=== PATIENT | male | born 1975 | race Caucasian/White ===

== ENCOUNTER 2016-12-26 15:31 | Inpatient (IN) | payer OTHER ==
[~2016-12-26] VITALS: Ht 185.4 cm; Wt 90.3 kg
[~2016-12-26 15:31] MED LIST: /IPRA3SP INH; ALBUTEROL LIQ INH; BACL10TA2 PO; BACT800T OR; CELE100C PO; CIPR500T4 OR; CLON-412 PO; CLON0.5T PO; GABA600T PO; HYDR25T PO; IBUP80TA PO; LIDO1OIN2 TOP; MAGN250T9 PO; MOBI15TA PO; NAPR250T2 PO; NICO21DI4 TD; PAIN325T OR; ROBA750T4 PO; TRAZ50TA4 PO; VICO5TAB OR; VITATAB11 PO
[2016-12-26 17:05] LABS: BASO % 0.5 % (0.0-1.0); EOS # 0.2 K/mm3 (0.0-0.50); EOS % 2.4 % (0.0-3.0); LARGE UNSTAINED CELL # 0.3 K/mm3 (0.0-0.4); LARGE UNSTAINED CELL % 2.8 % (0.0-4.0); LYMPH # 1.7 K/mm3 (1.5-4.5); LYMPH % 16.6 % (24.0-44.0); MEAN CORPUSCULAR HEMOGLOBIN 31.9 pg (27.0-33.0); MEAN CORPUSCULAR HGB CONC 34.3 g/dl (32.0-36.5); MEAN CORPUSCULAR VOLUME 92.9 fl (80.0-96.0); MONO # 0.6 K/mm3 (0.0-0.8); MONO % 6.1 % (0.0-5.0); NEUTROPHILS # 6.4 K/mm3 (1.8-7.7); NEUTROPHILS % 71.5 % (36.0-66.0); PLATELET COUNT, AUTOMATED 226 k/mm3 (150-450); RED CELL DISTRIBUTION WIDTH 11.9 % (11.5-14.5)
[2016-12-26 17:19] LABS: METHADONE URINE NEGATIVE (NEGATIVE)
[2016-12-26 17:24] LABS: ALBUMIN 3.9 GM/DL (3.2-5.2); ALBUMIN/GLOBULIN RATIO 1.18 (1.00-1.93); ALKALINE PHOSPHATASE 75 U/L (45-117); ALT/SGPT 34 U/L (12-78); ANION GAP 8 MEQ/L (8-16); AST/SGOT 24 U/L (15-37); BILIRUBIN,DIRECT 0.2 MG/DL (0.0-0.2); BILIRUBIN,TOTAL 0.6 MG/DL (0.2-1.0); BLOOD UREA NITROGEN 16 MG/DL (7-18); CALCIUM LEVEL 8.5 MG/DL (8.5-10.1); CARBON DIOXIDE LEVEL 27 MEQ/L (21-32); CHLORIDE LEVEL 105 MEQ/L (98-107); CREATININE FOR GFR 1.17 MG/DL (0.70-1.30); GLOMERULAR FILTRATION RATE > 60.0 (>60); GLUCOSE, FASTING 87 MG/DL (70-105); SODIUM LEVEL 140 MEQ/L (136-145); TOTAL PROTEIN 7.2 GM/DL (6.4-8.2)
--- NOTE | 2016-12-26 18:04 | REP ---
CHEST, ONE VIEW:REASON: Drug overdose, assess for pneumonia. COMPARISON: 04/14/2016 Single frontal view of the chest was obtained. FINDINGS: The technique utilized in obtaining the radiograph has magnified the cardiac silhouette and accentuated the interstitial markings. The superior mediastinal structures are midline. The cardiac silhouette is unremarkable in size, shape, and position. The diaphragmatic surfaces of the lungs are regular, and the costophrenic angles are clear. The pulmonary coleman are clear. The imaged osseous structures are intact. IMPRESSION: There is no acute cardiopulmonary disease. Signed by Yung Wadsworth DO 12/26/2016 06:28 P
--- NOTE | 2016-12-26 18:10 | REP ---
RIGHT HAND: REASON: Pain after trauma. PRIORS: None. FINDINGS: The joint spaces are symmetric and relatively well maintained. There is no evidence of acute fracture or destructive osseous lesion. IMPRESSION: Negative hand. Signed by Yung Wadsworth DO 12/26/2016 06:29 P
--- NOTE | 2016-12-26 18:24 | ECGEPIP ---
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
[2016-12-27] MEDS ORDERED: MAALOX 30 ML SUSP *UDC As Ordered ONE (01:22)
[2016-12-27] MEDS ORDERED: ACETAMINOPHEN TAB 650MG DOSE (2X325MG) PO PRN (04:45)
[2016-12-27] MEDS ORDERED: MAALOX 30 ML SUSP *UDC PO PRN (04:45)
[2016-12-27] MEDS ORDERED: traZODone 50 MG TAB PO PRN (04:45)
[2016-12-27] MEDS ORDERED: MOM 30ML SUSPENSION UDC PO PRN (04:45)
[2016-12-27 04:49] VITALS: BP 146/92
[2016-12-27] MEDS ORDERED: OLANZapine ORAL DISINTEGRATING TAB 5MG PO PRN (05:45)
--- NOTE | 2016-12-27 05:53 | ECGEPIP ---
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
[2016-12-27 06:28] VITALS: BP 146/96
--- NOTE | 2016-12-27 10:33 | HPEPDOC ---
[facility] History & Physical History and Physical DATE OF ADMISSION: Dec 27, 2016 at 02:30 LEGAL STATUS AT ADMISSION: 9.39 CHIEF COMPLAINT: "I'm not going into withdrawal. I'm not going to answer your stupid questions". HISTORY OF THE PRESENT ILLNESS: Patient is a 41-year-old male, who was admitted via the ED last night. He and his girlfriend arrive and both were under the influence of substances. Pt admits to using 1 bag of heroine every couple of days. On other days he uses methamphetamine. He administers drugs IV. Last night he apparently deliberately overdosed with his heroine injection so he could get mental health services. He states he has only used about 6 bags since his release from [facility] at the end of November. He denies he will have withdrawal symptoms as he has not used drugs enough to go into withdrawal. He insists he does not want any medications we may offer him. He states "I don't need drugs". When asked if he wanted to get clean he replied in the affirmative. Toxicology + for cocaine and opiates. Neutrophils high and monophils high, lymphocytes low. Xrays done in ER for chest and right hand both negative findings. PSYCHIATRIC REVIEW OF SYSTEMS: Affective: nasty, yelling, uncooperative Anxiety: high Trauma: not addressed Psychosis: he states the FBI and/or the Drug Task Force is behind his house and he and others can hear and see them back there breaking branches. Personally: hostile PAST PSYCHIATRIC HISTORY: Prior Psychiatric Disorder: prior admissio [facility] 04/03/04. Received counseling for alcoholism. Has received out patient counseling for alcohol abuse per his chart. Outpatient Treatment: none Suicidal/Self injurious: per ED report, pts denies presence of suicidal thoughts at this time. Psychotropic Medication History:denies. ALLERGIES: Please see below. FAMILY PSYCHIATRIC HISTORY: will not answer the question SOCIAL HISTORY: Early Relations/development: . Sibling order: . Paternal relationships: . Education: . Occupational: . Legal: . Martial: not Economic: . Supports: . Abuse/trauma: . SUBSTANCE ABUSE HISTORY: actively using methamphetamine and heroine. Mobile meth unit found in his vehicle. PAST MEDICAL/SURGICAL HISTORY: 1. h/o Hepatitis C. 2. T & A in childhood 3. h/o migraines. VITAL SIGNS: Temperature 97.7, pulse 97, respiratory rate 20, blood pressure 146 /96. MENTAL STATUS EXAMINATION: General appearance: Patient is a 41-year old male, who is completely uncooperative to an interview. Dressed in hospital pj bottoms and a T-shirt, lying in bed, shaking legs. Speech: loud, yelling, spontaneous. Thought processes: irrational Thought content: paranoid, suspicious. Abstract reasoning and computation: not addressed. Description of associations: not assessed. Description of abnormal or psychotic thoughts: as above : Government officials are breaking branches near his home. He told ED staff that they want him to come work for them. He would neither confirm or deny these things with va underwriter. Judgment: poor Insight: poor Orientation: not assessed at this time. Recent and remote memory: appears intact Attention span and concentration: poor Fund of knowledge: unable to determine Mood: angry Affect: hostile, congruent. DIAGNOSES: 1. Substance induce mood disorder with paranoia, delusions and suicidal ideation 2. Sedative, hypnotic and opiate dependence. 3. methamphetamine dependence. 4. Antisocial personality ASSESSMENT: Pt is not cooperative to attempts to make him comfortable. Pt is denying the need for inpatient treatment. He refuses to discuss other available options. He began attacking va underwriter immediately and criticizing questions that were asked. Refused to answer questions so interview was stopped. Pt was informed that his refusal to participate in the treatment planning process will delay his discharge to which he replied, "I don't care". PROBLEM LIST: 1. substance abuse 2. suicidal 3. altered mental status INITIAL TREATMENT PLAN: 1. Patient was admitted on a 9.39 2. Complete history was obtained. 3. With patients permission, family will be contacted and database will be expanded. 4. Patients medication regimen will be reviewed and changed accordingly. 5. Patient will be provided with protected environment. 6. Patient will be treated with individual, group, and milieu therapies. 7. Patient will receive supportive psych-education. 8. Discharge planning will commence immediately. 9. Outpatient follow-up treatment will be strongly recommended. 10. The initial treatment plan will focus initially on: * Depression. * Risk for suicide. * Substance abuse. ESTIMATED LENGTH OF STAY: 5-7 DAYS. TIME SPENT COUNSELING AND COORDINATING INITIAL CARE: minutes. Laboratory Data 24H Labs Laboratory Tests 2 12/26/16 16:48: White Blood Count 9.0, Red Blood Count 5.23, Hemoglobin 16.7, Hematocrit 48.6, Mean Corpuscular Volume 92.9, Mean Corpuscular Hemoglobin 31.9, Mean Corpuscular Hemoglobin Concent 34.3, Red Cell Distribution Width 11.9, Platelet Count 226, Neutrophils (%) (Auto) 71.5H, Lymphocytes (%) (Auto) 16.6L, Monocytes (%) (Auto) 6.1H, Eosinophils (%) (Auto) 2.4, Basophils (%) (Auto) 0.5 , Neutrophils # (Auto) 6.4, Lymphocytes # (Auto) 1.7, Monocytes # (Auto) 0.6, Eosinophils # (Auto) 0.2, Basophils # (Auto) 0.0, Large Unclassified Cells % 2.8 , Large Unclassified Cells # 0.3, Anion Gap 8, Glomerular Filtration Rate > 60.0 , Calcium Level 8.5, Aspartate Amino Transf (AST/SGOT) 24, Alanine Aminotransferase (ALT/SGPT) 34, Alkaline Phosphatase 75, Total Bilirubin 0.6, Direct Bilirubin 0.2, Total Creatine Kinase 351H, Creatine Kinase MB 2.9, Creatine Kinase MB Relative Index 0.82, Troponin I < 0.02, Total Protein 7.2, Albumin 3.9, Albumin/Globulin Ratio 1.18, Thyroid Stimulating Hormone (TSH) 1.970, Salicylates Level < 1.7L, Urine Amphetamines Screen POSITIVEH, Urine Benzodiazepines Screen NEGATIVE, Urine Opiates Screen NEGATIVE, Urine Methadone Screen NEGATIVE, Acetaminophen Level < 2.0L, Urine Barbiturates Screen NEGATIVE , Urine Phencyclidine Screen NEGATIVE, Urine Cocaine Metabolite Screen POSITIVEH , Urine Cannabinoids Screen NEGATIVE, Ethyl Alcohol Level < 0.003 CBC/BMP Laboratory Tests 12/26/16 16:48 Red Blood Count 5.23, Mean Corpuscular Volume 92.9, Mean Corpuscular Hemoglobin 31.9, Mean Corpuscular Hemoglobin Concent 34.3, Red Cell Distribution Width 11.9 , Neutrophils (%) (Auto) 71.5 H, Lymphocytes (%) (Auto) 16.6 L, Monocytes (%) ( Auto) 6.1 H, Eosinophils (%) (Auto) 2.4, Basophils (%) (Auto) 0.5, Neutrophils # (Auto) 6.4, Lymphocytes # (Auto) 1.7, Monocytes # (Auto) 0.6, Eosinophils # ( Auto) 0.2, Basophils # (Auto) 0.0 Medications No Active Prescriptions or Reported Meds Allergies Coded Allergies: No Known Drug Allergy (Verified Allergy, Unknown, 12/03/12) Julee Ceja Dec 27, 2016 10:33
--- NOTE | 2016-12-27 12:43 | HPEPDOC ---
Medical History and Physical Date of Admission Dec 27, 2016 at 02:30 History and Physical PCP: None ATTENDING: Dr. Sly Martino HPI: 41 yo M admitted to [facility] for unspecified depressive disorder, being medically examined today. Patient was found in [employer] parking lot with apparent overdose. 4 bags of heroin used IV, cocaine. Narcan was administered. Patient became responsive. He was brought to [facility] emergency department where he was medically evaluated and felt stable for admission to [facility]. Patient declines to participate with history or physical examination today. History is taken from the chart. PMHx: Tobacco use Substance use Chronic hepatitis C PSHX: None SOCHX: Resides in: [facility] Marital Status: Single Tobacco use: Smoker ETOH: none Illicit Drugs: Heroin, methamphetamine, IV Drug Use: Heroin Tattoos done unprofessionally: Unknown ROS: Patient declines to participate with history. PE: Patient declines to participate with physical examination. EK12/26/16 SINUS RHYTHM BENIGN EARLY REPOLARIZATION PROBABLE INFERIOR MYOCARDIAL INFARCTION, PROBABLY OLD SIMILAR TO PRIOR ON SAME DATE. X-ray right hand 12/26/16 Negative hand. Chest x-ray 12/26/16 There is no acute cardiopulmonary disease. A&P: 41 yo M admitted to [facility] for unspecified depressive disorder 1. Psych. Plan per Psychiatry. EKG on file. 2. Nicotine dependence. Patch available. 3. Borderline EKG. No cardiac signs or symptoms appreciated on exam, follow with PCP. 4. Follow up. No Primary Care Provider. Will attempt to establish PCP on discharge. 5. History of right hand trauma. X-ray negative. 6. Elevated CK. Recheck. 7. Substance use. Per psychiatry. 8. Chronic hepatitis C. As per labs 02/15. Seen by Dr. Downey 05/18. No treatment at that time. Follow-up with infectious disease following discharge. 9. History of IVDU. HIV negative per chart 2010. Can offer rescreening. 10. As noted above patient declined to participate with exam. Vital Signs Vital Signs Date Time Temp Pulse Resp B/P (MAP) Pulse Ox O2 Delivery O2 Flow Rate FiO2 12/27/16 06:28 97.7 97 20 146/96 (113) 12/26/16 21:19 96 Room Air Laboratory Data Labs 24H Laboratory Tests 2 12/26/16 16:48: White Blood Count 9.0, Red Blood Count 5.23, Hemoglobin 16.7, Hematocrit 48.6, Mean Corpuscular Volume 92.9, Mean Corpuscular Hemoglobin 31.9, Mean Corpuscular Hemoglobin Concent 34.3, Red Cell Distribution Width 11.9, Platelet Count 226, Neutrophils (%) (Auto) 71.5H, Lymphocytes (%) (Auto) 16.6L, Monocytes (%) (Auto) 6.1H, Eosinophils (%) (Auto) 2.4, Basophils (%) (Auto) 0.5 , Neutrophils # (Auto) 6.4, Lymphocytes # (Auto) 1.7, Monocytes # (Auto) 0.6, Eosinophils # (Auto) 0.2, Basophils # (Auto) 0.0, Large Unclassified Cells % 2.8 , Large Unclassified Cells # 0.3, Anion Gap 8, Glomerular Filtration Rate > 60.0 , Calcium Level 8.5, Aspartate Amino Transf (AST/SGOT) 24, Alanine Aminotransferase (ALT/SGPT) 34, Alkaline Phosphatase 75, Total Bilirubin 0.6, Direct Bilirubin 0.2, Total Creatine Kinase 351H, Creatine Kinase MB 2.9, Creatine Kinase MB Relative Index 0.82, Troponin I < 0.02, Total Protein 7.2, Albumin 3.9, Albumin/Globulin Ratio 1.18, Thyroid Stimulating Hormone (TSH) 1.970, Salicylates Level < 1.7L, Urine Amphetamines Screen POSITIVEH, Urine Benzodiazepines Screen NEGATIVE, Urine Opiates Screen NEGATIVE, Urine Methadone Screen NEGATIVE, Acetaminophen Level < 2.0L, Urine Barbiturates Screen NEGATIVE , Urine Phencyclidine Screen NEGATIVE, Urine Cocaine Metabolite Screen POSITIVEH , Urine Cannabinoids Screen NEGATIVE, Ethyl Alcohol Level < 0.003 CBC/BMP Laboratory Tests 12/26/16 16:48 Red Blood Count 5.23, Mean Corpuscular Volume 92.9, Mean Corpuscular Hemoglobin 31.9, Mean Corpuscular Hemoglobin Concent 34.3, Red Cell Distribution Width 11.9 , Neutrophils (%) (Auto) 71.5 H, Lymphocytes (%) (Auto) 16.6 L, Monocytes (%) ( Auto) 6.1 H, Eosinophils (%) (Auto) 2.4, Basophils (%) (Auto) 0.5, Neutrophils # (Auto) 6.4, Lymphocytes # (Auto) 1.7, Monocytes # (Auto) 0.6, Eosinophils # ( Auto) 0.2, Basophils # (Auto) 0.0 Home Medications No Active Prescriptions or Reported Meds Allergies Coded Allergies: No Known Drug Allergy (Verified Allergy, Unknown, 12/03/12) Mere Aleman Dec 27, 2016 12:43
[2016-12-27 18:00] VITALS: BP 136/83
[2016-12-28 06:23] VITALS: BP 147/83
[2016-12-28 06:33] LABS: MEAN CORPUSCULAR HEMOGLOBIN 31.7 pg (27.0-33.0); MEAN CORPUSCULAR HGB CONC 33.9 g/dl (32.0-36.5); MEAN CORPUSCULAR VOLUME 93.4 fl (80.0-96.0); RED CELL DISTRIBUTION WIDTH 11.9 % (11.5-14.5); WHITE BLOOD COUNT 11.1 K/mm3 (4.0-10.0)
[2016-12-28 06:54] LABS: ALBUMIN 3.2 GM/DL (3.2-5.2); ALBUMIN/GLOBULIN RATIO 1.07 (1.00-1.93); ALKALINE PHOSPHATASE 75 U/L (45-117); ALT/SGPT 33 U/L (12-78); ANION GAP 8 MEQ/L (8-16); AST/SGOT 19 U/L (15-37); BILIRUBIN,TOTAL 0.4 MG/DL (0.2-1.0); BLOOD UREA NITROGEN 10 MG/DL (7-18); CARBON DIOXIDE LEVEL 25 MEQ/L (21-32); CHLORIDE LEVEL 105 MEQ/L (98-107); CREATININE FOR GFR 0.91 MG/DL (0.70-1.30); GLOMERULAR FILTRATION RATE > 60.0 (>60); GLUCOSE, FASTING 97 MG/DL (70-105); POTASSIUM SERUM 4.4 MEQ/L (3.5-5.1); SODIUM LEVEL 138 MEQ/L (136-145); TOTAL PROTEIN 6.2 GM/DL (6.4-8.2)
--- NOTE | 2016-12-28 11:52 | DS.PDOC ---
[facility] Discharge Summary Discharge Summary DATE OF ADMISSION: Dec 27, 2016 at 02:30 DATE OF DISCHARGE: Dec 28, 2016 DISCHARGE DIAGNOSES: 1. Opiate overdose 2. opiate induced psychosis REASON FOR ADMISSION: pt was brought to ED after Narcan used to reverse a deliberate overdose on the part of Mr. Cadena. CONSULTANTS INVOLVED: NA TREATMENT AND PROGRESS ON THE UNIT : Mr. Cadena was extremely irritable and non cooperative with all personnel after his admission to [facility]. He would not provide any information about himself. Refused to accept any offers of treatment or assistance. Denied the need for treatment and all medications. Denied he would experience withdrawal as he does not use opiates routinely. Pt was very hostile towards staff. He did not engage in any unit activities or interact with any peers. He stated he did eat meals. HOSPITAL COURSE: pt cooperative with labs on 12/28. He requested discharge on 12.28 and denied thoughts of suicide or homicide. He declined offer for referral to substance abuse inpatient or outpatient treatment. He declined a referral for Outpatient Mental Health treatment. He did accept the offer of involving [facility] in looking for housing for him. He is aware he can present to [facility] or [facility] Outpatient clinics anytime as a walk-in. He showered prior to leaving the unit. DISCHARGE ASSESSMENT: Pt. states he deliberately overdosed as a way to get even with and hurt his Girlfriend with whom he had been fighting. He states he doesn' t like drugs but she does and he will use with her periodically. Pt states he intends to reside at his mother's residence. He called to her to make sure this was okay and she agreed. Girlfriend was going to pick him up when she got done at court. MENTAL STATUS EXAMINATION ON DISCHARGE: Patient is a 41-year old male, who is interviewed in his room, no roommate present. Has just showered and is waiting for his clothes. Speech is fluent, spontaneous. Language skills are good. Thought processes including: no delusions voiced. Goal directed. Thought content: discharge planning Abstract reasoning, and computation: poor Description of associations: good Description of abnormal or psychotic thoughts: no mention of FBI or Drug task force today. Denies suicidal or homicidal thoughts. Judgment: poor Insight: limited Orientation to person, place, time and situation. Recent and remote memory: intact Attention span and concentration: limited Fund of knowledge:full. Mood: angry. Affect: irritable. MEDICATIONS ON DISCHARGE: NONE PLAN/FOLLOWUP ARRANGEMENTS: Pt is aware he can present as an outpatient to [facility] for substance abuse treatment at any time. Pt will be contacted about a referral to [facility] after he leaves the hospital. The amount of time spent in the coordination of care for this patient was approximately 30 minutes. Vital Signs/I&Os Vital Signs Date Time Temp Pulse Resp B/P (MAP) Pulse Ox O2 Delivery O2 Flow Rate FiO2 12/28/16 06:23 100.8 72 20 147/83 (104) 12/27/16 18:00 Room Air 12/26/16 21:19 96 Laboratory Data Labs 24H Laboratory Tests 2 12/28/16 06:17: Anion Gap 8, Glomerular Filtration Rate > 60.0, Blood Urea Nitrogen 10, Creatinine 0.91, Sodium Level 138, Potassium Level 4.4, Chloride Level 105, Carbon Dioxide Level 25, Calcium Level 8.0L, Aspartate Amino Transf (AST/SGOT) 19, Alanine Aminotransferase (ALT/SGPT) 33, Total Creatine Kinase 102, Alkaline Phosphatase 75, Total Bilirubin 0.4, Total Protein 6.2L, Albumin 3.2, Albumin/ Globulin Ratio 1.07 CBC/BMP Laboratory Tests 12/28/16 06:17 Red Blood Count 5.06, Mean Corpuscular Volume 93.4, Mean Corpuscular Hemoglobin 31.7, Mean Corpuscular Hemoglobin Concent 33.9, Red Cell Distribution Width 11.9 , Calcium Level 8.0 L, Aspartate Amino Transf (AST/SGOT) 19, Alanine Aminotransferase (ALT/SGPT) 33, Total Creatine Kinase 102, Alkaline Phosphatase 75, Total Bilirubin 0.4, Total Protein 6.2 L, Albumin 3.2 Medications No Active Prescriptions or Reported Meds Allergies Coded Allergies: No Known Drug Allergy (Verified Allergy, Unknown, 12/03/12) Julee Ceja Dec 28, 2016 11:52
== END 2016-12-28 11:50 | disposition home or self-care (01) | DRG 773 ==
LOC: EDBD 15:31 → M ED 17:26 → M PSY 12-27 02:30 → M ED INP 12-27 02:30 → UNDOADMIN 12-27 03:56 → M ED INP 12-27 03:56
PROVIDERS: ADMIT Psychiatry & Neurology Psychiatry; ATTEND Psychiatry & Neurology Child & Adolescent Psychiatry
DX: F11.250 Opioid dependence with opioid-induced psychotic disorder with delusions (principal); F15.20 Other stimulant dependence, uncomplicated; F60.2 Antisocial personality disorder; T40.1X2A Poisoning by heroin, intentional self-harm, initial encounter; T40.5X2A Poisoning by cocaine, intentional self-harm, initial encounter; B18.2 Chronic viral hepatitis C; F17.210 Nicotine dependence, cigarettes, uncomplicated

== ENCOUNTER → 2018-11-27 | Outpatient (CLI) | payer MEDICAID ==
[~2018-11-27] MED LIST changes: -CLON0.5T PO; +CLON0.5T8 PO; -GABA600T PO; +GABA600T4 PO; +HYDR-3363 PO; -HYDR25T PO; -NAPR250T2 PO; +NAPR250T4 PO; +TRAZ-160 PO; -TRAZ50TA4 PO
== END ==
LOC: M OUTALCOH 13:30
PROVIDERS: ATTEND Psychiatry & Neurology Psychiatry
DX: F11.250 Opioid dependence with opioid-induced psychotic disorder with delusions (principal)

== ENCOUNTER 2018-12-09 13:13 | Inpatient (IN) | payer MEDICAID, OTHER ==
[~2018-12-09] VITALS: Ht 185.4 cm; Wt 93.8 kg
[~2018-12-09 13:13] MED LIST changes: -/IPRA3SP INH; +ATRO1SOL13 INH
[2018-12-09] MEDS ORDERED: ONDANSETRON 4MG/2ML VIAL (J2405) IV ONE ×2 (13:30→16:15)
[2018-12-09] MEDS ORDERED: NS 1,000 ML IV ONE (13:30)
[2018-12-09 13:43] LABS: VENOUS HCO3 21.7 MEQ/L (23.0-27.0); VENOUS O2 SATURATION 32.5 % (60.0-80.0); VENOUS PARTIAL PRESSURE CO2 89.5 mmHg (38.0-50.0); VENOUS PARTIAL PRESSURE O2 23.6 mmHg (30.0-50.0); VENOUS PH 7.002 UNITS (7.330-7.430); VENOUS TOTAL CO2 24.4 MEQ/L (24.0-28.0)
[2018-12-09 13:46] LABS: HEMATOCRIT 49.4 % (42.0-52.0); HEMOGLOBIN 15.7 g/dl (13.5-17.5); MEAN CORPUSCULAR HEMOGLOBIN 31.5 pg (27.0-33.0); MEAN CORPUSCULAR HGB CONC 31.8 g/dl (32.0-36.5); PLATELET COUNT, AUTOMATED 246 10^3/uL (150-450); RED BLOOD COUNT 4.99 10^6/uL (4.30-6.10); WHITE BLOOD COUNT 17.3 10^3/uL (4.0-10.0)
[2018-12-09 14:30] LABS: ACETAMINOPHEN LEVEL < 2.0 UG/ML (10.0-30.0); ALBUMIN 4.4 GM/DL (3.2-5.2); ALT/SGPT 27 U/L (12-78); BILIRUBIN,DIRECT 0.2 MG/DL (0.0-0.2); BILIRUBIN,TOTAL 0.4 MG/DL (0.2-1.0); BLOOD UREA NITROGEN 17 MG/DL (7-18); CARBON DIOXIDE LEVEL 24 MEQ/L (21-32); CHLORIDE LEVEL 102 MEQ/L (98-107); CPK CREATINE PHOSPHOKINASE 606 U/L (39-308); CREATININE FOR GFR 1.32 MG/DL (0.70-1.30); ETHYL ALCOHOL (ETHANOL) < 0.003 % (0.000-0.010); GLOMERULAR FILTRATION RATE > 60.0 (>60); GLUCOSE, FASTING 112 MG/DL (70-100); POTASSIUM SERUM 6.3 MEQ/L (3.5-5.1); SALICYLATE LEVEL 2.6 MG/DL (5.0-30.0); SODIUM LEVEL 138 MEQ/L (136-145); TOTAL PROTEIN 7.9 GM/DL (6.4-8.2)
[2018-12-09] MEDS ORDERED: CALCIUM GLUCONATE 1,000 MG in D5W MINI-BAG PLUS 100 ML IV ONE (14:30)
[2018-12-09] MEDS ORDERED: NS 1,800 ML in APPROPRIATE DILUENT 1 EA IV ONE (14:30)
[2018-12-09] MEDS ORDERED: SODIUM BICARBONATE 8.4% INJ 50 ML SYRINGE IV STA (14:54)
[2018-12-09 15:58] LABS: VENOUS BASE EXCESS -8.2 (-2.0-2.0); VENOUS HCO3 20.3 MEQ/L (23.0-27.0); VENOUS O2 SATURATION 29.6 % (60.0-80.0); VENOUS PARTIAL PRESSURE CO2 53.2 mmHg (38.0-50.0); VENOUS PARTIAL PRESSURE O2 19.2 mmHg (30.0-50.0); VENOUS PH 7.199 UNITS (7.330-7.430); VENOUS STANDARD HCO3 16.5 MEQ/L; VENOUS TOTAL CO2 21.9 MEQ/L (24.0-28.0)
[2018-12-09 16:23] LABS: AMPHETAMINES LEVEL URINE NEGATIVE (NEGATIVE); BARBITURATES URINE NEGATIVE (NEGATIVE); BENZODIAZEPINES URINE NEGATIVE (NEGATIVE); CANNABINOIDS URINE NEGATIVE (NEGATIVE); COCAINE METABOLITE URINE NEGATIVE (NEGATIVE); METHADONE URINE NEGATIVE (NEGATIVE); OPIATES URINE POSITIVE (NEGATIVE); PHENCYCLIDINE URINE NEGATIVE (NEGATIVE)
[2018-12-09 16:31] LABS: BLOOD UREA NITROGEN 17 MG/DL (7-18); CARBON DIOXIDE LEVEL 22 MEQ/L (21-32); CHLORIDE LEVEL 89 MEQ/L (98-107); CREATININE FOR GFR 1.33 MG/DL (0.70-1.30); GLOMERULAR FILTRATION RATE > 60.0 (>60); GLUCOSE, FASTING 537 MG/DL (70-100); POTASSIUM SERUM 6.2 MEQ/L (3.5-5.1); SODIUM LEVEL 120 MEQ/L (136-145)
[2018-12-09] MEDS ORDERED: ISOVUE-370 76% 100ML VIAL (Q9967) As Ordered ONE (16:39)
[2018-12-09] MEDS ORDERED: NALOXONE INJ 2 MG/2 ML SYRINGE (J2310) As Ordered ONE (16:44)
[2018-12-09] MEDS ORDERED: NALOXONE INJ 0.4 MG/1 ML VIAL (J2310) IV STA ×2 (16:48→16:49)
[2018-12-09] MEDS ORDERED: HumuLIN R (REGULAR) INSULIN (NovoLIN R) **100U/ML** PER UNIT SC STA (17:56)
[2018-12-09] MEDS ORDERED: DEXTROSE 50% 50 ML SYRINGE IV STA (17:56)
[2018-12-09 17:57] LABS: ALBUMIN 3.5 GM/DL (3.2-5.2); ALT/SGPT 61 U/L (12-78); BILIRUBIN,DIRECT 0.4 MG/DL (0.0-0.2); BILIRUBIN,TOTAL 0.7 MG/DL (0.2-1.0); BLOOD UREA NITROGEN 20 MG/DL (7-18); CALCIUM LEVEL 7.7 MG/DL (8.5-10.1); CARBON DIOXIDE LEVEL 25 MEQ/L (21-32); CHLORIDE LEVEL 106 MEQ/L (98-107); CPK CREATINE PHOSPHOKINASE 476 U/L (39-308); GLOMERULAR FILTRATION RATE > 60.0 (>60); GLUCOSE, FASTING 90 MG/DL (70-100); MB/CK RELATIVE INDEX 1.76 (< OR =4); POTASSIUM SERUM 7.2 MEQ/L (3.5-5.1); SODIUM LEVEL 137 MEQ/L (136-145); TOTAL PROTEIN 6.3 GM/DL (6.4-8.2); TROPONIN I 0.53 NG/ML (< 0.10)
[2018-12-09] MEDS ORDERED: ENOXAPARIN 40 MG/0.4 ML SYRINGE (J1650) SC SCH (18:00)
[2018-12-09] MEDS ORDERED: HYDROCORTISONE 100 MG/2 ML VIAL (J1720) IV ONE (18:15)
[2018-12-09] MEDS ORDERED: HumuLIN R (REGULAR) INSULIN (NovoLIN R) **100U/ML** PER UNIT IV ONE (18:15)
[2018-12-09] MEDS ORDERED: PATIROMER SORBITEX CALCIUM 8.4 GM POWDER PACKET (VELTASSA) PO ONE (18:30)
[2018-12-09] MEDS ORDERED: AMPICILLIN SOD/SULBACTAM SOD 3 GM in D5W MINI-BAG PLUS 100 ML IV ONE (18:30)
[2018-12-09 18:33] LABS: ABG BASE EXCESS -2.8 (-2.0-2.0); ABG HCO3 21.9 MEQ/L (22.0-26.0); ABG O2 SATURATION 97.4 % (95.0-99.0); ABG PARTIAL PRESSURE CO2 37.7 mmHg (35.0-45.0); ABG STANDARD HCO3 22.2 MEQ/L (22.0-26.0); ABG pH (ARTERIAL) 7.381 UNITS (7.350-7.450)
[2018-12-09 20:33] VITALS: BP 106/63
--- NOTE | 2018-12-09 20:44 | HPE ---
DATE OF ADMISSION: 12/09/2018 PRIMARY CARE PHYSICIAN: None. CHIEF COMPLAINT: Heroin overdose with abnormal EKG, elevated troponin and probable aspiration pneumonia. HISTORY: Nakul Cadena is a 43-year-old. He has a past history of drug and alcohol abuse. He was recently released from detention. For the last 3 days, he has been using heroin. He was brought to the emergency room after being found unresponsive by his paramour. He received Narcan in the field. His emergency room course has been complicated by severe hyperkalemia with a potassium of 6.3, acidemia, elevated troponin of 0.[address] segment elevation in his inferior cardiac leads on admission electrocardiogram. He became hypotensive after a few hours here, which has responded to some saline. He is being admitted to the intensive care unit (ICU) to the hospitalist service with needleworker, Dr. Teixeira, consulted. Cardiology will also be consulted. PAST MEDICAL HISTORY: Significant for hepatitis C. He saw Dr. Downey from infectious disease 05/18. She noted he had multiple rehab hospitalizations for cocaine and crystal meth abuse, diagnosed with hepatitis C in 2004. At that time, he had a very low viral load, borderline elevated AST and was not felt to be a candidate for medical treatment. He had a followup appointment in 6 months scheduled that he did not keep. He has been followed by [facility] and psychiatry, Dr. Marcos, most recently 3 days ago. SOCIAL HISTORY: Unmarried. He has a teenage son. REVIEW OF SYSTEMS: He has some pleuritic chest pain that he says is chronic; he has had as a child. It has been worse since he woke up from his overdose. Denies squeezing chest pain, radiation of pain, palpitations, orthopnea, sputum production, fever, chills, night sweats. Review of systems as above, otherwise negative. MEDICATIONS: None. ALLERGIES: None. PHYSICAL EXAM: Currently blood pressure is 95/67, pulse rate 89, respiratory rate 18, 99% oxygen (O2) saturation. General Appearance: He is alert and conversing with his friend. (He is fully alert.) Case was discussed with Dr. Martino, the emergency room provider. Patient seemed to lapse back into a less responsive state after the friend had visited, and there is some suspicion on the emergency room staff that the friend may have provided the patient with some opiate that led to relapse. The patient did require another dose of Narcan and then returned to his baseline mental status. Vital Signs: Per flow sheet. Pupils equal, round, reactive to light. Tympanic membranes (TMs) normal. Pharynx benign. Dentition in moderate disrepair. Neck: Supple. Lungs: Clear. Heart: Regular rhythm, without murmur. Abdomen: Soft, nontender, no masses. Extremities: No clubbing, cyanosis, edema. Skin: Showed no abscesses. Does have "one life, one chance" tattooed on his lower abdomen. There are no recent or fresh tattoos. Moves arms and legs with equal strength. LABORATORY: EKGs were reviewed. He has peak T waves, ST segment elevation in leads 2, 3, F and some ST depression in V1. Most recent electrolytes: Sodium 137, potassium 7.2, BUN 20, creatinine 1.2, glucose 90. Lactic acid was 10.6 on admission; his followup was 3. Calcium is 7.7, AST 105, CK 476, troponin 0.53. Toxicology positive for opiates, negative otherwise. Most recent AB.. CT of the chest reportedly shows an infiltrate; I do not have that report. Neck and cervical spine: Unremarkable. IMPRESSION: 1. Heroin overdose with hypoxia and acidosis. He seems to have recovered from this. He is being admitted to the intensive care unit. IV fluids have been ordered. Swatch Checker has been consulted. Hospitalist will be assuming his care. 2. Elevated troponin/abnormal EKG. Cardiology will be consulted. The EKGs were discussed with Dr. Martino. ST elevation is probably related to hyperkalemia. I went through his old records. He had EKGs done 04/14/16, and he had ST segment elevation in his inferior leads at that time, probably early repolarization. The current EKG is more marked, probably from the hyperkalemia, but these changes were present previously. He has already had Veltassa ordered, IV fluids ordered. He received emergency treatment with calcium carbonate in the emergency room. Followup BMP will be ordered after his arrival in the ICU. 3. Probable aspiration pneumonia. Unasyn has been ordered, empiric hydrocortisone given for the hypotension. 4. History of hepatitis C. Repeat hepatitis C viral load has been ordered. 5. IV heroin addiction. Patient and family services (PFS) will have to get involved prior to discharge. Hospitalist will be assuming his care after admission.
[2018-12-09 21:00] VITALS: BP 91/66
[2018-12-09 21:16] LABS: BLOOD UREA NITROGEN 21 MG/DL (7-18); CALCIUM LEVEL 8.2 MG/DL (8.5-10.1); CARBON DIOXIDE LEVEL 28 MEQ/L (21-32); CHLORIDE LEVEL 104 MEQ/L (98-107); CREATININE FOR GFR 1.32 MG/DL (0.70-1.30); GLOMERULAR FILTRATION RATE > 60.0 (>60); GLUCOSE, FASTING 129 MG/DL (70-100); POTASSIUM SERUM 4.6 MEQ/L (3.5-5.1); SODIUM LEVEL 137 MEQ/L (136-145)
--- NOTE | 2018-12-09 21:35 | ECGEPIP ---
Stationary ECG Study [facility] - ED Test Date: 2018-12-09 Pat Name: ELIJAH RAE Department: Room: - Gender: M Director Of Business Continuity: JULIO : 1975 Requested By: ALLEN Crenshaw Order Number: [id number] Reading MD: Ricco Fleming Measurements Intervals [place] Rate: 104 P: 72 NE: 124 QRS: 74 QRSD: 97 T: 47 QT: 318 QTc: 419 Interpretive Statements SINUS TACHYCARDIA BENIGN EARLY REPOLARIZATION POSSIBLE PRIOR INFERIOR INFARCT SIMILAR TO 12/26/16 Electronically Signed On 12-09-2018 21:35:00 EDT by Ricco Fleming
--- NOTE | 2018-12-09 21:39 | ECGEPIP ---
Stationary ECG Study [facility] - ED Test Date: 2018-12-09 Pat Name: ELJIAH RAE Department: Room: - Gender: M Dredge Master: : 1975 Requested By: ALLEN Crenshaw Order Number: [id number] Reading MD: Ricco Fleming Measurements Intervals [place] Rate: 96 P: 78 DC: 133 QRS: 75 QRSD: 90 T: 44 QT: 334 QTc: 422 Interpretive Statements SINUS RHYTHM POSSIBLE LEFT ATRIAL ENLARGEMENT BENIGN EARLY REPOLARIZATION NSTTW ABNORMALITIES SIMILAR TO PRIOR ON SAME DATE Electronically Signed On 12-09-2018 21:39:46 EDT by Ricco Fleming
[2018-12-10] VITALS: BP 101/71
[2018-12-10] MEDS: AMPICILLIN SOD/SULBACTAM SOD 3 GM in D5W MINI-BAG PLUS 100 ML IV SCH ×2 (00:24→06:00)
[2018-12-10 02:17] LABS: BLOOD UREA NITROGEN 16 MG/DL (7-18); CALCIUM LEVEL 8.4 MG/DL (8.5-10.1); CARBON DIOXIDE LEVEL 28 MEQ/L (21-32); CHLORIDE LEVEL 104 MEQ/L (98-107); CPK CREATINE PHOSPHOKINASE 429 U/L (39-308); CREATININE FOR GFR 1.16 MG/DL (0.70-1.30); GLOMERULAR FILTRATION RATE > 60.0 (>60); GLUCOSE, FASTING 133 MG/DL (70-100); MB/CK RELATIVE INDEX 2.38 (< OR =4); POTASSIUM SERUM 4.8 MEQ/L (3.5-5.1); SODIUM LEVEL 138 MEQ/L (136-145); TROPONIN I 0.74 NG/ML (< 0.10)
[2018-12-10 04:00] VITALS: BP 100/61
[2018-12-10] MEDS ORDERED: HYDROCORTISONE 100 MG/2 ML VIAL (J1720) IV SCH (06:00)
[2018-12-10 06:58] LABS: HEMATOCRIT 36.8 % (42.0-52.0); MEAN CORPUSCULAR HEMOGLOBIN 31.6 pg (27.0-33.0); MEAN CORPUSCULAR HGB CONC 34.2 g/dl (32.0-36.5); MEAN CORPUSCULAR VOLUME 92.2 fl (80.0-96.0); PLATELET COUNT, AUTOMATED 184 10^3/uL (150-450); RED BLOOD COUNT 3.99 10^6/uL (4.30-6.10); WHITE BLOOD COUNT 13.1 10^3/uL (4.0-10.0)
[2018-12-10 07:00] VITALS: BP 108/64
[2018-12-10 07:05] LABS: HEMOGLOBIN 12.6 g/dl (13.5-17.5)
[2018-12-10 07:19] LABS: BLOOD UREA NITROGEN 14 MG/DL (7-18); CARBON DIOXIDE LEVEL 31 MEQ/L (21-32); CHLORIDE LEVEL 104 MEQ/L (98-107); GLOMERULAR FILTRATION RATE > 60.0 (>60); GLUCOSE, FASTING 108 MG/DL (70-100); MAGNESIUM LEVEL 1.7 MG/DL (1.8-2.4); POTASSIUM SERUM 4.2 MEQ/L (3.5-5.1); SODIUM LEVEL 139 MEQ/L (136-145)
--- NOTE | 2018-12-10 07:37 | ECGEPIP ---
Stationary ECG Study [facility] - ED Test Date: 2018-12-09 Pat Name: ELIJAH RAE Department: Room: [place] [address] Gender: M Terminal Supervisor: stephanie : 1975 Requested By: ALLEN Crenshaw Order Number: [id number] Reading MD: Ricco Fleming Measurements Intervals [place] Rate: 103 P: 80 [place]: 134 QRS: 80 QRSD: 96 T: 52 QT: 327 QTc: 430 Interpretive Statements SINUS TACHYCARDIA POSSIBLE LEFT ATRIAL ENLARGEMENT EARLY REPOLARIZATION NSTTW ABNORMALITIES SIMILAR TO PRIOR ON SAME DATE Electronically Signed On 12-10-2018 7:37:21 EDT by Ricco Fleming
[2018-12-10 08:54] VITALS: BP 105/57
--- NOTE | 2018-12-10 09:10 | REP ---
CT study of the cervical spine with IV contrast: Repeat dictation. History: Altered mental status. Preliminary report is provided at the time examination by [facility]. Technique: Helical scanning is acquired and overlapping 2 mm high resolution axial images were generated and reviewed at bone and soft tissue window settings. Coronal and sagittal multiplanar re-formations images are generated. Contrast enhancement dose of 100 ml of intravenous Isovue 370. CT findings: There is no evidence of cervical spine element fracture. No skull base fracture is seen. Cervical vertebral body heights are preserved. Alignment is normal. Facet joints are normally aligned bilaterally at each cervical level on multiplanar re-formations images. There is no evidence of intraspinal or paraspinal hematoma. No extra vertebral abnormality is seen. There are mild degenerative disc and facet changes in the mid cervical spine. Discogenic spurring is noted at C 04/05 and C5-6. Mild facet osteoarthritic spurring is noted on coronal images at the C4-5 and C2-3. There is mild degenerative sclerosis at the articulation between the dens and the anterior arch of C1. Impression: Mild degenerative spondylosis changes, otherwise negative CT study of the cervical spine without contrast. No fracture seen. Electronically Signed by Jaden Corral MD 12/10/2018 09:02 A
--- NOTE | 2018-12-10 09:28 | REP ---
CT brain without contrast: Repeat dictation. History: Altered mental status. Preliminary report is provided at time of exam by [facility]. Findings: Preliminary digital coating supervisor radiographs are unremarkable. Bony calvarium is intact. There is no evidence of skull fracture or bony calvarial lesion. Visualized paranasal sinuses are clear. The lateral third and fourth ventricles are normal in size and position. Carter-white differentiation pattern is normal above below the tentorium. There is no evidence of intracranial hemorrhage. No infarct, mass, extra-axial fluid collection or midline shift is seen. No intraorbital abnormality is seen. Impression: Negative noncontrast head CT. Electronically Signed by Jaden Corral MD 12/10/2018 08:20 P
[2018-12-10 10:10] LABS: MB/CK RELATIVE INDEX 2.25 (< OR =4); TROPONIN I 0.58 NG/ML (< 0.10)
[2018-12-10] MEDS ORDERED: AUGM875T28 PO (10:59)
[2018-12-10 11:52] VITALS: BP 102/54
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
--- NOTE | 2018-12-10 13:43 | REP ---
CT chest with IV contrast, repeat dictation: History: Shortness of breath. Repeat dictation. Preliminary report is provided at the time of exam by [facility]. Comparison studies: Comparison chest x-rays from December 26, 2016. Contrast dose: 100 mL of Isovue [address] technique: Helical scanning is acquired and overlapping 1.5 mm and contiguous 3 mm axial images are reformatted. In addition, maximum intensity projection and multiplanar re-formation images are generated in sagittal and coronal imaging projections. CT pulmonary angiographic findings: There is good opacification of the pulmonary arterial tree. There is no CT evidence of pulmonary embolism. Thoracic aorta enhances homogeneously and is normal in course and caliber. There is a small quantity of pericardial fluid anterior to the ascending aorta. This is a normal pericardial recess. No other evidence of pericardial effusion is seen. There is no evidence of pleural effusion. There is infiltrate in the left upper lobe and left lower lobe compatible with pneumonia. No pulmonary nodule or mass lesion is seen. No hilar or mediastinal mass or adenopathy is observed. There is evidence of a mild amount of upper abdominal ascites and pattern of periportal edema is seen in the liver. No bony destructive lesion is seen. Impression: No CT evidence of pulmonary embolus. Left upper lobe and left lower lobe pneumonia. Periportal edema and mild ascites pattern in the upper abdomen. A small quantity of pericardial fluid. Small hiatal hernia seen. Electronically Signed by Jaden Corral MD 12/10/2018 08:31 P
--- NOTE | 2018-12-10 19:23 | ECGEPIP ---
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
[2018-12-11 10:22] LABS: HEPATITIS B CORE ANTIBODY IGM NEGATIVE (NEGATIVE); HEPATITIS B SURFACE ANTIBODY POSITIVE (POSITIVE); HEPATITIS B SURFACE ANTIGEN NEGATIVE (NEGATIVE); HIV 1&2 SCREEN CENTAUR NEGATIVE (NEGATIVE)
== END 2018-12-10 12:13 | disposition home or self-care (01) | DRG 816 ==
LOC: M ED 13:13 → M ED INP 19:12 → M ICU 20:20
PROVIDERS: ADMIT Family Medicine; ATTEND Internal Medicine
DX: T40.1X1A Poisoning by heroin, accidental (unintentional), initial encounter (principal); J69.0 Pneumonitis due to inhalation of food and vomit; E87.2 Acidosis; E87.5 Hyperkalemia; F11.20 Opioid dependence, uncomplicated; F10.10 Alcohol abuse, uncomplicated; B19.20 Unspecified viral hepatitis C without hepatic coma; R09.02 Hypoxemia

== ENCOUNTER 2018-12-11 14:43 | Emergency (ER) | payer MEDICAID ==
[~2018-12-11] VITALS: Ht 182.9 cm; Wt 94.8 kg
[~2018-12-11 14:43] MED LIST changes: +AUGM875T28 PO
[2018-12-11 15:29] LABS: BASO % 0.1 % (0.0-1.0); EOS # 0.1 10^3/uL (0.0-0.50); EOS % 0.8 % (0.0-3.0); HEMATOCRIT 40.2 % (42.0-52.0); HEMOGLOBIN 13.7 g/dl (13.5-17.5); LYMPH # 1.6 10^3/uL (1.5-4.5); LYMPH % 18.7 % (24.0-44.0); MEAN CORPUSCULAR HEMOGLOBIN 31.4 pg (27.0-33.0); MEAN CORPUSCULAR HGB CONC 34.1 g/dl (32.0-36.5); MEAN CORPUSCULAR VOLUME 92.2 fl (80.0-96.0); MONO # 0.7 10^3/uL (0.0-0.8); MONO % 8.1 % (0.0-5.0); NEUTROPHILS # 6.2 10^3/uL (1.8-7.7); PLATELET COUNT, AUTOMATED 198 10^3/uL (150-450); RED BLOOD COUNT 4.36 10^6/uL (4.30-6.10); WHITE BLOOD COUNT 8.6 10^3/uL (4.0-10.0)
[2018-12-11 15:50] LABS: BLOOD UREA NITROGEN 13 MG/DL (7-18); C REACTIVE PROTEIN QUANTITATIV 1.99 MG/DL (0.00-0.30); CALCIUM LEVEL 8.5 MG/DL (8.5-10.1); CARBON DIOXIDE LEVEL 30 MEQ/L (21-32); CHLORIDE LEVEL 106 MEQ/L (98-107); CREATININE FOR GFR 1.05 MG/DL (0.70-1.30); GLOMERULAR FILTRATION RATE > 60.0 (>60); GLUCOSE, FASTING 111 MG/DL (70-100); POTASSIUM SERUM 3.9 MEQ/L (3.5-5.1); SODIUM LEVEL 141 MEQ/L (136-145)
[2018-12-11 16:01] LABS: ERYTHROCYTE SEDIMENTATION RATE 10 mm/hr (0-15)
--- NOTE | 2018-12-11 16:24 | REP ---
Right upper extremity deep vein duplex ultrasound The deep veins demonstrate normal compression, normal Doppler color flow and normal Doppler waveforms with respiration augmentation at multiple levels from the brachial veins to the jugular vein. Impression: There is no right upper extremity deep vein thrombus. Electronically Signed by Pk Arriaga MD 12/11/2018 04:15 P
--- NOTE | 2018-12-11 16:29 | REP ---
Soft tissue and Doppler ultrasound ultrasound over the dorsum of the right hand. The patient previously had a saline lock. The area is now swollen and purple . Ultrasonography of this area identifies intraluminal thrombus in a superficial vein extending from the dorsum of the hand to the distal right forearm. Impression: Superficial vein thrombus in the dorsum of the right hand to the distal right forearm. Electronically Signed by Pk Arriaga MD 12/11/2018 04:20 P
[2018-12-11 17:03] VITALS: BP 153/95
== END 2018-12-11 17:19 | disposition home or self-care (01) ==
LOC: M ED 14:43
DX: I80.8 Phlebitis and thrombophlebitis of other sites (principal); F17.210 Nicotine dependence, cigarettes, uncomplicated

== ENCOUNTER 2018-12-30 11:00 | Outpatient (RCR) | payer MEDICAID | END 2018-12-31 | LOC: M OUTALCOH 11:00 | PROVIDERS: ATTEND Psychiatry & Neurology Psychiatry | DX: F11.10 Opioid abuse, uncomplicated (principal) ==

== ENCOUNTER 2019-01-29 16:00 | Outpatient (RCR) | payer MEDICAID | END 2019-01-31 | LOC: M OUTALCOH 16:00 | PROVIDERS: ATTEND Psychiatry & Neurology Psychiatry | DX: F11.20 Opioid dependence, uncomplicated (principal) ==

== ENCOUNTER → 2019-02-07 | Outpatient (CLI) | payer OTHER ==
[~2019-02-07] MED LIST changes: -TRAZ-160 PO; +TRAZ-252 PO
--- NOTE | 2019-02-07 17:45 | REP ---
MR CERVICAL SPINE WITHOUT CONTRAST: HISTORY: Neck pain. Facet hypertrophy is present on the left at the C2-3 level. This produces minimal narrowing of the left C2 neural foramen. The right C2 neural foramen is patent. A disc bulge is present at the C3-4 level. There is mild effacement of the thecal sac without spinal cord compression. Bilateral uncinate process hypertrophy is present. This produces minimal and mild narrowing of the right and left C3 neural foramina respectively. A disc bulge is present at the C4-5 level. There is minimal effacement of the thecal sac without spinal cord compression. Uncinate process and facet hypertrophy are present on the left. These findings produce moderate narrowing of the left C4 neural foramen. The right C4 neural foramen is patent. A disc bulge is present at the C5-6 level. There is moderate effacement of the thecal sac without spinal cord compression. Bilateral uncinate process hypertrophy is present. This produces moderate and mild narrowing of the right and left C5 neural foramina respectively. A small central disc protrusion is present at the C6-7 level. There is minimal effacement of the thecal sac without spinal cord compression. Bilateral uncinate process hypertrophy is present. This produces minimal narrowing of the C6 neural foramina. There is no other disc bulge or herniation. The remaining neural foramina are patent. The spinal cord is normal in signal intensity. Normal signal intensity is present in the cervical vertebral bodies. IMPRESSION:There is cervical spondylosis at the C2-3 through C6-7 levels without spinal cord compression. Electronically Signed by Alistair Benitez MD 02/07/2019 05:47 P
== END ==
LOC: M RAD 13:40
PROVIDERS: ATTEND Family Medicine
DX: M54.2 Cervicalgia (principal)

== ENCOUNTER → 2019-03-28 | Outpatient (CLI) | payer MEDICAID | LOC: M OUTALCOH 09:54 | PROVIDERS: ATTEND Psychiatry & Neurology Psychiatry | DX: F11.20 Opioid dependence, uncomplicated (principal) ==

== ENCOUNTER → 2019-04-02 | Outpatient (RCR) | payer MEDICAID | LOC: M OUTALCOH 14:49 | PROVIDERS: ATTEND Psychiatry & Neurology Psychiatry | DX: F11.20 Opioid dependence, uncomplicated (principal); F15.20 Other stimulant dependence, uncomplicated ==

== ENCOUNTER 2019-04-14 08:45 | Outpatient (RCR) | payer MEDICAID | END 2019-05-03 | LOC: M OUTALCOH 08:45 | PROVIDERS: ATTEND Psychiatry & Neurology Psychiatry | DX: F11.20 Opioid dependence, uncomplicated (principal); F15.20 Other stimulant dependence, uncomplicated ==

== ENCOUNTER → 2019-05-21 | Outpatient (CLI) | payer OTHER ==
[~2019-05-21] MED LIST changes: +CLON0.5T2 PO; -CLON0.5T8 PO; +HYDR50CA2 PO; +MED REC COMMENT; +OLAN5TAB PO; +SUBO8MIS; +SUBO8MIS SL
[2019-05-21 15:02] LABS: HEMATOCRIT 44.9 % (42.0-52.0); HEMOGLOBIN 15.3 g/dl (13.5-17.5); MEAN CORPUSCULAR HEMOGLOBIN 31.6 pg (27.0-33.0); MEAN CORPUSCULAR HGB CONC 34.1 g/dl (32.0-36.5); MEAN CORPUSCULAR VOLUME 92.8 fl (80.0-96.0); PLATELET COUNT, AUTOMATED 223 10^3/uL (150-450); RED BLOOD COUNT 4.84 10^6/uL (4.30-6.10); WHITE BLOOD COUNT 9.5 10^3/uL (4.0-10.0)
[2019-05-21 15:31] LABS: ALBUMIN 3.8 GM/DL (3.2-5.2); ALT/SGPT 12 U/L (12-78); BILIRUBIN,TOTAL 0.7 MG/DL (0.2-1.0); BLOOD UREA NITROGEN 12 MG/DL (7-18); CALCIUM LEVEL 9.2 MG/DL (8.5-10.1); CARBON DIOXIDE LEVEL 34 MEQ/L (21-32); CHLORIDE LEVEL 104 MEQ/L (98-107); CREATININE FOR GFR 1.06 MG/DL (0.70-1.30); GLOMERULAR FILTRATION RATE > 60.0 (>60); GLUCOSE, FASTING 83 MG/DL (70-100); POTASSIUM SERUM 4.2 MEQ/L (3.5-5.1); SODIUM LEVEL 140 MEQ/L (136-145); TOTAL PROTEIN 7.1 GM/DL (6.4-8.2)
[2019-05-21 16:19] LABS: HIV 1&2 SCREEN CENTAUR NEGATIVE (NEGATIVE)
[2019-05-21 16:24] LABS: CHLAMYDIA DNA AMPLIFICATION NEGATIVE (NEGATIVE); GC DNA AMPLIFICATION NEGATIVE (NEGATIVE)
--- NOTE | 2019-05-22 14:49 | ECGEPIP ---
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
[2019-05-23 09:20] LABS: HEPATITIS B SURFACE ANTIGEN NEGATIVE (NEGATIVE)
[2019-05-23 10:22] LABS: HEPATITIS C VIRUS ABY INDEX > 11.0 INDEX (<0.8)
== END ==
LOC: M LAB 14:29
PROVIDERS: ATTEND Family Medicine
DX: F11.20 Opioid dependence, uncomplicated (principal)

== ENCOUNTER 2019-07-26 19:09 | Inpatient (IN) | payer MEDICAID, OTHER ==
[~2019-07-26] VITALS: Ht 182.9 cm; Wt 82.2 kg
[~2019-07-26 19:09] MED LIST changes: -CLON0.5T2 PO; +CLON0.5T8 PO; -HYDR50CA2 PO; -MED REC COMMENT; -OLAN5TAB PO; -SUBO8MIS; -SUBO8MIS SL
[2019-07-26 20:17] LABS: HEMATOCRIT 40.3 % (42.0-52.0); HEMOGLOBIN 13.6 g/dl (13.5-17.5); MEAN CORPUSCULAR HEMOGLOBIN 31.1 pg (27.0-33.0); MEAN CORPUSCULAR HGB CONC 33.7 g/dl (32.0-36.5); MEAN CORPUSCULAR VOLUME 92.2 fl (80.0-96.0); PLATELET COUNT, AUTOMATED 232 10^3/uL (150-450); RED BLOOD COUNT 4.37 10^6/uL (4.30-6.10); WHITE BLOOD COUNT 6.8 10^3/uL (4.0-10.0)
[2019-07-26 20:41] LABS: AMPHETAMINES LEVEL URINE NEGATIVE (NEGATIVE); BARBITURATES URINE NEGATIVE (NEGATIVE); BENZODIAZEPINES URINE NEGATIVE (NEGATIVE); CANNABINOIDS URINE POSITIVE (NEGATIVE); COCAINE METABOLITE URINE NEGATIVE (NEGATIVE); METHADONE URINE NEGATIVE (NEGATIVE); OPIATES URINE NEGATIVE (NEGATIVE); PHENCYCLIDINE URINE NEGATIVE (NEGATIVE)
[2019-07-26 20:52] LABS: ACETAMINOPHEN LEVEL < 2.0 UG/ML (10.0-30.0); ALBUMIN 3.5 GM/DL (3.2-5.2); ALT/SGPT 15 U/L (12-78); BILIRUBIN,DIRECT < 0.1 MG/DL (0.0-0.2); BILIRUBIN,TOTAL 0.2 MG/DL (0.2-1.0); BLOOD UREA NITROGEN 15 MG/DL (7-18); CARBON DIOXIDE LEVEL 28 MEQ/L (21-32); CHLORIDE LEVEL 110 MEQ/L (98-107); CREATININE FOR GFR 0.87 MG/DL (0.70-1.30); ETHYL ALCOHOL (ETHANOL) < 0.003 % (0.000-0.010); GLOMERULAR FILTRATION RATE > 60.0 (>60); GLUCOSE, FASTING 114 MG/DL (70-100); POTASSIUM SERUM 4.3 MEQ/L (3.5-5.1); SALICYLATE LEVEL 3.3 MG/DL (5.0-30.0); SODIUM LEVEL 143 MEQ/L (136-145); TOTAL PROTEIN 6.6 GM/DL (6.4-8.2)
[2019-07-26] MEDS ORDERED: MAALOX 30 ML SUSP *UDC PO PRN (22:45)
[2019-07-26] MEDS ORDERED: traZODone 50 MG TAB PO PRN (22:45)
[2019-07-26] MEDS ORDERED: MOM 30ML SUSPENSION UDC PO PRN (22:45)
[2019-07-27 02:12] VITALS: BP 133/76
[2019-07-27 06:41] VITALS: BP 126/76
[2019-07-27] MEDS ORDERED: INFLUENZA QUADRIVALENT PF VACCINE 0.5ML SYRINGE (90686) IM ONE (09:00)
--- NOTE | 2019-07-27 13:50 | HPEPDOC ---
General Date of Admission Jul 26, 2019 at 22:35 Date of Service: Jul 27, 2019 Chief Complaint The patient is a 43-year-old male admitted with a reason for visit of Unspecified Depressive Disorder. Source: Patient, Old records History of Present Illness 43 year old male admitted to [facility] for unspecified depression. He came to the ED with a feeling of doom, he was crying and was paranoid also. He has been doing drugs intermittently. I am seeing the patient for medical history and physical. He complained of low back pain about 3/10 in intensity, dull aching without any radiation. Says has 2 herniated discs. He takes over the counter ibuprofen for it sometimes. Home Medications No Active Prescriptions or Reported Meds Allergies Coded Allergies: No Known Allergies (Unverified , 12/09/18) Past Medical History Medical History Hepatitis C from 2004 Polysubstance abuse heroin, cocaine, crystal meth Alcohol abuse Substance induced mood disorder Chronic back pain with L6 disc bulge ADHD Asthma Hypertension. Headaches Migraine vs drug withdrawal. Surgical History tonsillectomy and adenoidectomy Family History Significant Family History: Cancer (paternal grand mother breast cancer), COPD (mother), Heart disease ([place]) Social History * Smoker: current smoker Drugs: cocaine, heroin, marijuana, IV drug use, other (meth amphetamine, ) A-FIB/CHADSVASC A-FIB History Current/History of A-Fib/PAF?: No Review of Systems Constitutional: Denies: Chills, Fever, Night Sweats Eyes: Denies: Pain, Vision change ENT: Reports: Head Aches Skin: Denies: Rash, Lesions, Breakdown Pulmonary: Denies: Dyspnea, Cough Cardiovascular: Denies: Chest Pain, Palpitations, Orthopnea, Paroxysmal Noc. Dyspnea, Lt Headedness Gastrointestinal: Denies: Nausea, Vomiting, Abdominal Pain, Diarrhea Genitourinary: Denies: Dysuria, Frequency, Incontinence, Retention Musculoskeletal: Reports: Back Pain Neurological: Denies: Weakness, Numbness, Change in speech, Confusion Psych: Reports: Mood Normal; Denies: Depression, Memory Issues Physical Examination General Exam: Positive: Alert, No Acute Distress Eye Exam: Positive: PERRLA, Conjunctiva & lids normal, EOMI; Negative: Sclera icteric ENT Exam: Positive: Atraumatic, Mucous membr. moist/pink, Pharynx Normal Neck Exam: Positive: Supple; Negative: JVD, thyromegaly Chest Exam: Positive: Clear to auscultation, Normal air movement Heart Exam: Positive: Rate Normal, Regular Rhythm, Normal S1, Normal S2; Negative: Murmurs, Rubs Abdomen Exam: Positive: Normal bowel sounds, Soft; Negative: Tenderness, Hepatospenomegaly Extremity Exam: Positive: Normal pulses; Negative: Clubbing, Cyanosis, Edema Skin Exam: Positive: Nl turgor and temperature; Negative: Breakdown, Lesion Vital Signs Vital Signs Date Time Temp Pulse Resp B/P (MAP) Pulse Ox O2 Delivery O2 Flow Rate FiO2 07/27/19 06:41 98.6 54 14 126/76 (93) 07/27/19 02:12 100 Room Air Laboratory Data Labs 24H Laboratory Tests 2 07/26/19 19:52: Nucleated Red Blood Cells % (auto) 0.0, Anion Gap 5L, Glomerular Filtration Rate > 60.0, Calcium Level 9.0, Total Bilirubin 0.2, Direct Bilirubin < 0.1, Aspartate Amino Transf (AST/SGOT) 13, Alanine Aminotransferase (ALT/SGPT) 15, Alkaline Phosphatase 74, Total Protein 6.6, Albumin 3.5, Albumin/Globulin Ratio 1.13, Thyroid Stimulating Hormone (TSH) 0.440, Salicylates Level 3.3L, Urine Opiates Screen NEGATIVE, Urine Methadone Screen NEGATIVE, Acetaminophen Level < 2.0L, Urine Barbiturates Screen NEGATIVE, Urine Phencyclidine Screen NEGATIVE, Urine Amphetamines Screen NEGATIVE, Urine Benzodiazepines Screen NEGATIVE, Urine Cocaine Metabolite Screen NEGATIVE, Urine Cannabinoids Screen POSITIVEH, Ethyl Alcohol Level < 0.003 CBC/BMP Laboratory Tests 07/26/19 19:52 Assessment/Plan 43 year old male admitted to [facility] for unspecified depression. He came to the ED with a feeling of doom, he was crying and was paranoid also. He has been doing drugs intermittently. I am seeing the patient for medical history and physical. Back pian mild controlled if needed can give tylenol prn. Psych issues as per psychiatry. Plan / VTE VTE Prophylaxis Ordered?: No (freely ambulatory.) ALLYSON HARDY MD Jul 27, 2019 09:35
[2019-07-27 15:31] VITALS: BP 116/59
[2019-07-27] MEDS ORDERED: BUPRENORPHINE/NALOXONE 8-2MG SUBLINGUAL TABLET(SUBOXONE) SL ONE (16:00)
[2019-07-27] MEDS: OLANZapine ORAL DISINTEGRATING TAB 5MG PO PRN (16:32)
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
[2019-07-28] MEDS: ACETAMINOPHEN TAB 650MG DOSE (2X325MG) PO PRN ×3 (00:48→19:15)
[2019-07-28 06:01] VITALS: BP 113/54
--- NOTE | 2019-07-28 10:34 | MHIPNPDOC ---
[facility] Progress Note Progress Note DATE OF SERVICE: 07/28/19 HISTORY: This is one of multiple admissions for this 43-year-old white man who presents with complaints of depression and anxiety and suicidal ideations although with no specific plans. He also voiced that he was hearing voices, which he described as "whispers." Today, he clarifies that this has been going on for the past 3 years and so this is a chronic thing for him. Also, he was talking about feeling that the FBI was after him. When I asked him about that he was very vague and eventually stated, "well maybe." The patient has a serious problem with abusing multiple drugs. Toxicology was positive for methamphetamine and cannabis and yet he is supposed to be on Suboxone. His mother came in today with a bottle for this patient that indicated that he is supposed to take Suboxone 60 mg a day but it was just a one day dose that had been dispensed into that bottle, and the patient has been saying that he goes to [facility] and they give him the Suboxone there. Today when I asked him he was very vague about the mood symptoms and basically indicated that maybe he was "a little depressed," because he says that he misses his girlfriend and he tells me that what he wants is to go inpatient to a rehabilitation program. I then asked him again why he was in the hospital because it sounds like the symptoms are mostly chronic symptoms such as chronic whispers that he hears and the thoughts of the FBI after him are also not new because I did find that there was a prior hospitalization at [facility] in the past where he actually was talking about the same things of the FBI. Therefore, the patient tells me, "I did not feel safe in my apartment or my car." However, he is not able to tell me at all what he meant by not feeling safe. VITAL SIGNS: See below. NEW TEST RESULTS: See below. CURRENT MEDICATIONS: See below. MENTAL STATUS EXAMINATION: The patient is alert and oriented times three. He is verbally spontaneous. Eye contact is fairly good. There is no formal thought disorder noted. He says his mood is "alright". Affect is more full and appropriate to mood. He is not psychotic, denies suicidal or homicidal ideation. Concentration is good. Memory intact. Insight and judgment fair. DIAGNOSES: 1. Substance induced mood disorder with paranoia, delusions and suicidal ideations. 2. Methamphetamine use disorder, severe. 3. Cannabis use disorder, severe. 4. Opioid use disorder, on Suboxone. ASSESSMENT:Pt seen and states that his mood is "alright". States he slept well last night. Feels he is tolerating his medications and they're beneficial. States he would like referral to inpatient substance abuse treatment and wait inpatient here for eventual transfer to substance abuse rehab. Advised to start calling facilities after d/c internet media planner gives him a list of rehabs to facilitate an admission to rehab which he states he'll do. Advised pt that due to this be Thanksgi week that might not be possible for direct admission and that he may have to be d/c home and continue to follow-up with rehab referrals made here for eventual admission which he is agreeable to. He is pleasant and cooperative when seen. He is not attending groups as "I haven't found one that I think is for me" and encouraged to go to all of them as they are most likely all beneficial for him to learning coping mechanisms. He denies SI/HI, hallucinations, delusions. Pt feels safe here. MANAGEMENT PLAN: refer to inpatient rehab. Suboxone 8-2mg daily Zyprexa 10mg q4mg prn anxiety/agitation TIME SPENT: 30 minutes. Vital Signs Vital Signs Date Time Temp Pulse Resp B/P (MAP) Pulse Ox O2 Delivery O2 Flow Rate FiO2 07/28/19 06:01 97.6 50 16 113/54 (73) 07/27/19 02:12 100 Room Air Current Medications Current Medications Medications (Trade) Dose Ordered Sig/Dom Route PRN Reason Start Time Stop Time Status Last Admin Dose Admin Acetaminophen (Tylenol Tab) 650 mg Q6HP PRN PO HEADACHE or DISCOMFORT 07/26/19 22:45 07/28/19 00:48 Al Hydrox/Mg Hydrox/Simethicone (Mylanta) 30 ml Q4HP PRN PO HEARTBURN/INDIGESTION 07/26/19 22:45 Home Med (Med Rec Complete!) ASDIRECTED XX 07/26/19 20:15 07/26/19 22:44 DC Magnesium Hydroxide (Milk Of Magnesia) 30 ml DAILYPRN PRN PO CONSTIPATION 07/26/19 22:45 Olanzapine (ZyPREXA ZYDIS) 10 mg Q4HP PRN PO ANXIETY/AGITATION 07/26/19 22:45 07/27/19 16:32 Trazodone HCl (Desyrel) 50 mg QHSP PRN PO INSOMNIA 07/26/19 22:45 Allergies Coded Allergies: No Known Allergies (Unverified , 12/09/18) KATLYN GRUBBS DO Jul 28, 2019 9:20 am
[2019-07-28] MEDS ORDERED: BUPRENORPHINE/NALOXONE 8-2MG SUBLINGUAL TABLET(SUBOXONE) SL ONE (12:15)
[2019-07-28 18:00] VITALS: BP 120/78
[2019-07-28] MEDS: OLANZapine ORAL DISINTEGRATING TAB 5MG PO PRN (19:15)
[2019-07-28] MEDS ORDERED: IBUPROFEN 400 MG TAB PO PRN (19:30)
[2019-07-29 06:21] VITALS: BP 134/59
--- NOTE | 2019-07-29 08:57 | MHDSPDOC ---
[facility] Discharge Summary Discharge Summary DATE OF ADMISSION: Jul 26, 2019 at 10:35 pm DATE OF DISCHARGE: Jul 29, 2019 DISCHARGE DIAGNOSES: 1. Substance induced mood disorder with paranoia, delusions and suicidal ideations. 2. Methamphetamine use disorder, severe. 3. Cannabis use disorder, severe. 4. Opioid use disorder, on Suboxone. REASON FOR ADMISSION: Per Dr. Marcos: "This is one of multiple admissions for this 43-year-old white man who presents with complaints of depression and anxiety and suicidal ideations although with no specific plans. He also voiced that he was hearing voices, which he described as "whispers." Today, he clarifies that this has been going on for the past 3 years and so this is a chronic thing for him. Also, he was talking about feeling that the FBI was after him. When I asked him about that he was very vague and eventually stated, "well maybe." The patient has a serious problem with abusing multiple drugs. Toxicology was positive for methamphetamine and cannabis and yet he is supposed to be on Suboxone. His mother came in today with a bottle for this patient that indicated that he is supposed to take Suboxone 60 mg a day but it was just a one day dose that had been dispensed into that bottle, and the patient has been saying that he goes to [facility] and they give him the Suboxone there. Today when I asked him he was very vague about the mood symptoms and basically indicated that maybe he was "a little depressed," because he says that he misses his girlfriend and he tells me that what he wants is to go inpatient to a rehabilitation program. I then asked him again why he was in the hospital because it sounds like the symptoms are mostly chronic symptoms such as chronic whispers that he hears and the thoughts of the FBI after him are also not new because I did find that there was a prior hospitalization at [facility] in the past where he actually was talking about the same things of the FBI. Therefore, the patient tells me, "I did not feel safe in my apartment or my car." However, he is not able to tell me at all what he meant by not feeling safe." CONSULTANTS INVOLVED: none TREATMENT AND PROGRESS ON THE UNIT : Pt was admitted to [facility], seen for psychiatric assessment and restarted on his outpatient medication Suboxone 8-2mg daily per Sharif. He was provided zyprexa 10mg q4hr prn psychosis and trazodone 50mg qhs prn insomnia. Pt found his medications beneficial and tolerated them well. His symptoms of psychosis improved quickly to no symptoms with lack of methamphetamine use most likely causing the psychotic symptoms. He attended groups daily during his stay. His symptoms improved greatly with treatment. He was referred to inpatient substance abuse treatment during his stay and advised he must continue to call rehabs after d/c from [facility] for an admission date to one of them. On day of discharge he denied depression, anxiety, insomnia, SI/HI, hallucinations, delusions, opiate withdrawal symptoms. He was discharged home with follow-up at [facility]. He felt safe for discharge. DISCHARGE ASSESSMENT: Pt seen and states that his mood is "good" and that he's looking forward to going home today. States he plans to continue to call rehabs for an admission date after d/c. States he slept well last night. Feels he is tolerating his medications and they're beneficial. He is pleasant and cooperative when seen. He is attending groups since yesterday and finding beneficial, learning coping mechanisms. He denies depression, anxiety, insomnia, SI/HI, hallucinations, delusions, opiate withdrawal symptoms. Pt feels safe to d/c home. MENTAL STATUS EXAMINATION ON DISCHARGE: The patient is alert and oriented times three. He is verbally spontaneous. Eye contact is good. There is no formal thought disorder noted. He says his mood is "good". Affect is euthymic, full, and appropriate to mood. He is not psychotic, denies suicidal or homicidal ideation. Concentration is good. Memory intact. Insight and judgment good. MEDICATIONS ON DISCHARGE: Suboxone 8-2mg daily prescribed by An PLAN/FOLLOWUP ARRANGEMENTS: D/c home with follow-up at [facility]. The amount of time spent in the coordination of care for this patient was approximately 30 minutes. Vital Signs/I&Os Vital Signs Date Time Temp Pulse Resp B/P (MAP) Pulse Ox O2 Delivery O2 Flow Rate FiO2 07/29/19 06:21 98.3 58 16 134/59 (84) Room Air 07/27/19 02:12 100 Medications No Active Prescriptions or Reported Meds Allergies Coded Allergies: No Known Allergies (Unverified , 12/09/18) KATLYN GRUBBS DO Jul 29, 2019 8:56 am
[2019-07-29] MEDS ORDERED: BUPRENORPHINE/NALOXONE 8-2MG SUBLINGUAL TABLET(SUBOXONE) SL SCH (09:00)
[2019-07-30] MEDS ORDERED: HYDR50CA2 PO (12:27)
[2019-07-30] MEDS ORDERED: SUBO8MIS (12:27)
[2019-07-30] MEDS ORDERED: OLAN5TAB PO (12:27)
[2019-07-30] MEDS ORDERED: MED REC COMMENT (15:27)
== END 2019-07-29 11:05 | disposition home or self-care (01) | DRG 773 ==
LOC: M ED 19:09 → M ED INP 22:35 → M PSY 07-27 01:16
PROVIDERS: ADMIT Psychiatry & Neurology Psychiatry; ATTEND Psychiatry & Neurology Psychiatry
DX: F15.250 Other stimulant dependence with stimulant-induced psychotic disorder with delusions (principal); R45.851 Suicidal ideations; F11.10 Opioid abuse, uncomplicated; F12.20 Cannabis dependence, uncomplicated; F60.2 Antisocial personality disorder; Z79.899 Other long term (current) drug therapy; J45.909 Unspecified asthma, uncomplicated; I10 Essential (primary) hypertension; G43.909 Migraine, unspecified, not intractable, without status migrainosus; F17.200 Nicotine dependence, unspecified, uncomplicated; M51.26 Other intervertebral disc displacement, lumbar region

== ENCOUNTER 2019-07-30 12:18 | Inpatient (IN) | payer MEDICAID, OTHER ==
[~2019-07-30] VITALS: Ht 182.9 cm; Wt 86.4 kg
[~2019-07-30 12:18] MED LIST changes: +CLON0.5T2 PO; -CLON0.5T8 PO
[2019-07-30] MEDS ORDERED: OLAN5TAB PO (12:27)
[2019-07-30] MEDS ORDERED: HYDR50CA2 PO (12:27)
[2019-07-30] MEDS ORDERED: SUBO8MIS (12:27)
[2019-07-30 13:59] LABS: HEMATOCRIT 43.5 % (42.0-52.0); HEMOGLOBIN 14.7 g/dl (13.5-17.5); MEAN CORPUSCULAR HEMOGLOBIN 31.1 pg (27.0-33.0); MEAN CORPUSCULAR HGB CONC 33.8 g/dl (32.0-36.5); PLATELET COUNT, AUTOMATED 230 10^3/uL (150-450); RED BLOOD COUNT 4.73 10^6/uL (4.30-6.10); WHITE BLOOD COUNT 7.8 10^3/uL (4.0-10.0)
[2019-07-30 14:29] LABS: AMPHETAMINES LEVEL URINE NEGATIVE (NEGATIVE); BARBITURATES URINE NEGATIVE (NEGATIVE); BENZODIAZEPINES URINE NEGATIVE (NEGATIVE); CANNABINOIDS URINE POSITIVE (NEGATIVE); COCAINE METABOLITE URINE NEGATIVE (NEGATIVE); METHADONE URINE NEGATIVE (NEGATIVE); OPIATES URINE NEGATIVE (NEGATIVE); PHENCYCLIDINE URINE NEGATIVE (NEGATIVE)
[2019-07-30 14:41] LABS: ACETAMINOPHEN LEVEL < 2.0 UG/ML (10.0-30.0); ALBUMIN 3.9 GM/DL (3.2-5.2); ALT/SGPT 22 U/L (12-78); BILIRUBIN,DIRECT < 0.1 MG/DL (0.0-0.2); BILIRUBIN,TOTAL 0.3 MG/DL (0.2-1.0); BLOOD UREA NITROGEN 17 MG/DL (7-18); CALCIUM LEVEL 8.8 MG/DL (8.5-10.1); CARBON DIOXIDE LEVEL 31 MEQ/L (21-32); CHLORIDE LEVEL 105 MEQ/L (98-107); CREATININE FOR GFR 1.03 MG/DL (0.70-1.30); ETHYL ALCOHOL (ETHANOL) < 0.003 % (0.000-0.010); GLOMERULAR FILTRATION RATE > 60.0 (>60); GLUCOSE, FASTING 86 MG/DL (70-100); POTASSIUM SERUM 4.2 MEQ/L (3.5-5.1); SALICYLATE LEVEL 2.8 MG/DL (5.0-30.0); SODIUM LEVEL 139 MEQ/L (136-145); THYROID STIMULATING HORMONE 0.981 uIU/ML (0.358-3.740); TOTAL PROTEIN 7.4 GM/DL (6.4-8.2)
[2019-07-30] MEDS ORDERED: LORazepam 1 MG TAB PO ONE (15:00)
[2019-07-30] MEDS ORDERED: HALOPERIDOL 5 MG/ML VIAL (J1630) IM ONE (15:15)
[2019-07-30] MEDS ORDERED: LORazepam 2 MG/ML VIAL (J2060) IM ONE (15:15)
[2019-07-30] MEDS ORDERED: MED REC COMMENT (15:27)
[2019-07-30] MEDS ORDERED: MOM 30ML SUSPENSION UDC PO PRN (17:30)
[2019-07-30] MEDS ORDERED: LORazepam 2 MG TAB PO PRN (17:30)
[2019-07-30] MEDS ORDERED: OLANZapine ORAL DISINTEGRATING TAB 5MG PO PRN (17:30)
[2019-07-30] MEDS ORDERED: MAALOX 30 ML SUSP *UDC PO PRN (17:30)
[2019-07-30 18:12] VITALS: BP 130/82
[2019-07-30] MEDS: NICOTINE 21MG/24HR 1 EA TRANSDERMAL TD SCH (18:24)
[2019-07-31 05:55] VITALS: BP 117/73
[2019-07-31] MEDS: NICOTINE 21MG/24HR 1 EA TRANSDERMAL TD SCH (09:08)
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
[2019-07-31] MEDS ORDERED: BUPRENORPHINE/NALOXONE 8-2MG SUBLINGUAL TABLET(SUBOXONE) SL ONE (11:30)
[2019-07-31] MEDS: OLANZapine 5 MG TAB PO SCH (11:57)
[2019-07-31 16:13] VITALS: BP 124/79
--- NOTE | 2019-07-31 17:29 | HPEPDOC ---
[facility] Medical History & Physical Date of Admission Jul 31, 2019 Date of Service: Jul 31, 2019 History and Physical CHIEF COMPLAINT: Admitted to inpatient mental health unit for questionable suicidal ideation HISTORY OF PRESENT ILLNESS: 43-year-old male with past medical history of IV drug use, currently on Suboxone is admitted to inpatient mental health unit for question no suicidal ideation. Patient reports that he was sent here because he possibly hinted at ending his life to his global safety officer. He denies any current or previous history of suicidal ideation/attempt. He denies any history of depression or other psychiatric disease. He denies any medical issues as well, denies taking any medications other than Suboxone at this time. He has no complaints currently, comfortable in bed, denies short of breath, chest pain, nausea, vomiting, abdominal pain or diarrhea. He reports that this entire admission was due to misinterpretation of what he said mistakenly. 10 point review of system is negative except for above PAST MEDICAL HISTORY: 1. IV drug use. PAST SURGICAL HISTORY: 1. I&D of an abscess in the antecubital fossa. SOCIAL HISTORY: Prior history of polysubstance abuse. Current smoker, half pack per day for 25 years Denies alcohol use. Currently, smokes marijuana FAMILY HISTORY: Father due to alcoholism ALLERGIES: Please see below. HOME MEDICATIONS: Please see below. PHYSICAL EXAMINATION: VITAL SIGNS: Please see below. GENERAL: No distress HEENT: Normocephalic, atraumatic, moist mucous membranes NECK: Supple CARDIOVASCULAR EXAMINATION: S1, S2, no murmurs RESPIRATORY EXAMINATION: Clear to auscultation, no wheezing ABDOMINAL EXAMINATION: Soft, nontender, nondistended, positive bowel sounds EXTREMITIES: Range of motion intact SKIN: No rash NEUROLOGICAL EXAMINATION: Alert and oriented 3, no focal deficits PSYCHIATRIC EXAMINATION: Calm and cooperative LABORATORY DATA: See below. MICROBIOLOGY: Please see below. ASSESSMENT: 43-year-old male with past medical history of polysubstance abuse on Suboxone is admitted for possible suicidal ideation. PLAN: 1. Suicidal ideation. Management as per primary team 2. Current smoker. Nicotine patch Patient has no active medical issues at this time, please reconsult if needed. Vital Signs Vital Signs Date Time Temp Pulse Resp B/P (MAP) Pulse Ox O2 Delivery O2 Flow Rate FiO2 07/31/19 16:13 97.9 84 18 124/79 (94) 07/30/19 18:12 99 Room Air Home Medications Scheduled Hydroxyzine Pamoate (Hydroxyzine Pamoate) 50 Mg Capsule, 50 MG PO QHS Olanzapine (Olanzapine) 5 Mg Tablet, 5 MG PO DAILY Miscellaneous Medications [Med Rec Comment] LIST OBTAINED FROM PHARMACY Allergies Coded Allergies: No Known Allergies (Unverified , 12/09/18) A-FIB/CHADSVASC A-FIB History Current/History of A-Fib/PAF?: No FELI MENDEZ MD Jul 31, 2019 17:28
[2019-07-31] MEDS: hydrOXYzine 50 MG TAB PO SCH (21:02)
[2019-07-31] MEDS: traZODone 50 MG TAB PO PRN (21:03)
[2019-08-01 06:35] VITALS: BP 143/63
[2019-08-01] MEDS: OLANZapine 5 MG TAB PO SCH (08:02)
[2019-08-01] MEDS: NICOTINE 21MG/24HR 1 EA TRANSDERMAL TD SCH (08:02)
[2019-08-01] MEDS: BUPRENORPHINE/NALOXONE 8-2MG SUBLINGUAL TABLET(SUBOXONE) SL SCH (08:03)
--- NOTE | 2019-08-01 10:21 | MHIPNPDOC ---
[facility] Progress Note Progress Note DATE OF SERVICE: 08/01/19 HISTORY: Per Dr. Pack "The patient, a 43-year-old man, presents to [facility] initially after becoming distorted, reportedly after using am phetamines. He was brought in by his senior officer due to his bizarre behavior. He had recently been admitted several days ago for a similar presentation. He was noted to be bizarre, aggressive in his intoxicated state which had not resolved and was admitted out of abundance of caution. When the patient was met with, he reported that he was unsure as to why he was admitted. He was amenable, friendly, primarily wanted his buprenorphine and stated that he felt that people "lied" about him, but did not appear overly concerned about this. He reports that he has no change in his depression symptoms, psychosis symptoms, or any symptoms from his previous admission with Dr. Michelle. He reports that he otherwise feels fine and was sad about being admitted over Thanksgiving." VITAL SIGNS: See below. NEW TEST RESULTS: See below. CURRENT MEDICATIONS: See below. MENTAL STATUS EXAMINATION: General: Well dressed with good hygiene Speech: Spontaneous and fluid Thought processes: Linear and logical, positive drug cravings MSK: Smooth and coordinated gait, no signs of tremors or involuntary orofacial movements Thought content: Future orientated Abstract reasoning, and computation: Intact Description of associations: Intact Description of abnormal or psychotic thoughts: Denies any suicidal or homicidal ideation. Denies any auditory or visual hallucinations. Does not appear to be responding to internal stimuli. Does not appear to be endorsing any bizarre or paranoid ideation. 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 Opioid use disorder, severe. Tobacco use disorder, severe. Cannabis use disorder, severe. ASSESSMENT:Pt seen and states that his mood is "alright" and that he wants to go home to be home for the holiday over the weekend since he missed Thanksgiving with his family yesterday. Denies any symptom of psychosis but appears anxious, irritable, and to be craving drugs which is most likely why he wants to leave treatment so quickly. He appears psychiatrically worse then when previously d/c earlier this week most like do to recent methamphetamine use and comes across as easily reactive and agitated. Will monitor for improvement as with lack of drug use. States he slept well last night. Feels he is tolerating his medications and they're beneficial. He is attending groups and finding them helpful. He denies SI/HI, hallucinations, delusions. Pt feels safe here. MANAGEMENT PLAN: d/c planning Sunday. Medications: Suboxone 8-2mg daily zyprexa 5mg daily vistaril 50mg qhs TIME SPENT: 30 minutes. Vital Signs Vital Signs Date Time Temp Pulse Resp B/P (MAP) Pulse Ox O2 Delivery O2 Flow Rate FiO2 08/01/19 06:35 97.3 55 16 143/63 (89) 07/30/19 18:12 99 Room Air Current Medications Current Medications Medications (Trade) Dose Ordered Sig/Dom Route PRN Reason Start Time Stop Time Status Last Admin Dose Admin Al Hydrox/Mg Hydrox/Simethicone (Mylanta) 30 ml Q4HP PRN PO HEARTBURN/INDIGESTION 07/30/19 17:30 Buprenorphine/ Naloxone (Suboxone 8/2mg) 2 tab DAILY SL 08/01/19 09:00 08/01/19 08:03 Home Med (Med Rec Complete!) ASDIRECTED XX 07/30/19 15:30 07/30/19 15:30 DC Hydroxyzine HCl (Atarax) 50 mg QHS PO 07/31/19 21:00 07/31/19 21:02 Ibuprofen (Advil) 400 mg Q6HP PRN PO PAIN 07/30/19 17:30 Lorazepam (Ativan) 2 mg Q4HP PRN PO ANXIETY/AGITATION 07/30/19 17:30 Magnesium Hydroxide (Milk Of Magnesia) 30 ml DAILYPRN PRN PO CONSTIPATION 07/30/19 17:30 Nicotine (Nicoderm Cq 21mg) 1 patch DAILY TD 07/30/19 09:00 07/31/19 09:08 Olanzapine (ZyPREXA ZYDIS) 10 mg Q4HP PRN PO ANXIETY/AGITATION 07/30/19 17:30 Olanzapine (ZyPREXA) 5 mg DAILY PO 07/31/19 09:00 07/31/19 11:57 Trazodone HCl (Desyrel) 50 mg QHSP PRN PO INSOMNIA 07/30/19 17:30 07/31/19 21:03 Allergies Coded Allergies: No Known Allergies (Unverified , 12/09/18) KATLYN MICHELLE DO Aug 01, 2019 10:21 am
[2019-08-01 16:43] VITALS: BP 118/67
[2019-08-01] MEDS: IBUPROFEN 400 MG TAB PO PRN (17:58)
[2019-08-01] MEDS: hydrOXYzine 50 MG TAB PO SCH (20:49)
[2019-08-01] MEDS ORDERED: IBUPROFEN 400 MG TAB PO ONE (23:00)
[2019-08-01] MEDS: traZODone 50 MG TAB PO PRN (23:01)
[2019-08-02 05:50] VITALS: BP 119/66
[2019-08-02] MEDS: OLANZapine 5 MG TAB PO SCH (08:33)
[2019-08-02] MEDS: NICOTINE 21MG/24HR 1 EA TRANSDERMAL TD SCH (08:33)
[2019-08-02] MEDS: IBUPROFEN 400 MG TAB PO PRN ×2 (08:38→14:50)
[2019-08-02] MEDS: BUPRENORPHINE/NALOXONE 8-2MG SUBLINGUAL TABLET(SUBOXONE) SL SCH (08:38)
--- NOTE | 2019-08-02 11:35 | MHIPNPDOC ---
[facility] Progress Note Progress Note Inpatient Progress Note Nakul Cadena MRN: N/A Date of : N/A Date of Service: 08/02/2019 History of Present Illness The patient, a 43-year-old man, presents to [facility] initially after becoming distorted, reportedly after using amphetamines. He was brought in by his hospital chief financial officer due to his bizarre behavior. He had recently been admitted several days ago for a similar presentation. He was noted to be bizarre, aggr essive in his intoxicated state which had not resolved and was admitted out of abundance of caution. Interval History The patient is met with today. He still is quite upset that he was admitted and states that he does understand why he was held over the weekend. He did have some irritation and at times some pointed statements, however. He reports otherwise he is doing well and having no side effects. The interview was relatively limited as he appears irritated by any questions. He reports that he is fine on his Suboxone, but he is refusing his Zyprexa as he feels he does not need this. No major behavioral problems overnight, attends groups. Review Of Systems Denies any side effects such as GI trouble. Reports a painful tooth with no fever or other signs of infection. Psychotherapy None on this visit. Vital Signs Reviewed. Mental Status Examination General: Well dressed with good hygiene Speech: Spontaneous and fluid Thought processes: Linear and logical MSK: Smooth and coordinated gait, no signs of tremors or involuntary orofacial movements Thought content: Future orientated Abstract reasoning, and computation: Intact Description of associations: Intact Description of abnormal or psychotic thoughts: Appears to be denying suicidal or homicidal ideation. The patient is irritable about the majority of the discussion Judgment: fair Insight: fair Orientation: Alert and orientated 3 Cognition: Grossly normal Recent and remote memory: Intact Attention span and concentration: Intact Fund of knowledge: Adequate Mood: "Well, I'm sure my cerner analyst will like this" Affect: Euthymic with a full range Diagnoses Unspecified psychotic disorder. Methamphetamine use disorder, severe. Opioid use disorder, severe. Tobacco use disorder, severe. Cannabis use disorder, severe. Assessment and Plan Will continue to give patient Suboxone 16 mg. Unspecified psychotic disorder: Continue to offer Zyprexa, however, likely substance-induced appears to have resolved. Opioid use disorder: Continue Suboxone 16 mg daily. Tobacco use disorder: Contain nicotine replacement. Cannabis and methamphetamine use disorder: Recommend abstinence. Disposition Patient is pending disposition and discharge on Sunday per Dr. Michelle' previous plan. Further observation over the weekend. Time Spent 15 minutes. Sunday Vital Signs Vital Signs Date Time Temp Pulse Resp B/P (MAP) Pulse Ox O2 Delivery O2 Flow Rate FiO2 08/02/19 05:50 97.7 61 16 119/66 (83) 07/30/19 18:12 99 Room Air Current Medications Current Medications Medications (Trade) Dose Ordered Sig/Dom Route PRN Reason Start Time Stop Time Status Last Admin Dose Admin Al Hydrox/Mg Hydrox/Simethicone (Mylanta) 30 ml Q4HP PRN PO HEARTBURN/INDIGESTION 07/30/19 17:30 Buprenorphine/ Naloxone (Suboxone 8/2mg) 2 tab DAILY SL 08/01/19 09:00 08/02/19 08:38 Home Med (Med Rec Complete!) ASDIRECTED XX 07/30/19 15:30 07/30/19 15:30 DC Hydroxyzine HCl (Atarax) 50 mg QHS PO 07/31/19 21:00 08/01/19 20:49 Ibuprofen (Advil) 400 mg Q6HP PRN PO PAIN 07/30/19 17:30 08/02/19 08:38 Lorazepam (Ativan) 2 mg Q4HP PRN PO ANXIETY/AGITATION 07/30/19 17:30 Magnesium Hydroxide (Milk Of Magnesia) 30 ml DAILYPRN PRN PO CONSTIPATION 07/30/19 17:30 Nicotine (Nicoderm Cq 21mg) 1 patch DAILY TD 07/30/19 09:00 07/31/19 09:08 Olanzapine (ZyPREXA ZYDIS) 10 mg Q4HP PRN PO ANXIETY/AGITATION 07/30/19 17:30 Olanzapine (ZyPREXA) 5 mg DAILY PO 07/31/19 09:00 07/31/19 11:57 Trazodone HCl (Desyrel) 50 mg QHSP PRN PO INSOMNIA 07/30/19 17:30 08/01/19 23:01 Allergies Coded Allergies: No Known Allergies (Unverified , 12/09/18) ARIADNE QUIROS DO Aug 02, 2019 11:35
[2019-08-02 16:19] VITALS: BP 140/79
[2019-08-02] MEDS ORDERED: IBUPROFEN 400 MG TAB PO PRN (17:30)
[2019-08-02] MEDS ORDERED: BENZOCAINE 10% 9GM TUBE (ANBESOL) MT PRN (17:30)
[2019-08-02] MEDS: traZODone 50 MG TAB PO PRN (20:18)
[2019-08-02] MEDS: hydrOXYzine 50 MG TAB PO SCH (20:18)
[2019-08-03 06:04] VITALS: BP 115/68
[2019-08-03] MEDS: NICOTINE 21MG/24HR 1 EA TRANSDERMAL TD SCH (08:35)
[2019-08-03] MEDS: OLANZapine 5 MG TAB PO SCH (08:35)
[2019-08-03] MEDS: BUPRENORPHINE/NALOXONE 8-2MG SUBLINGUAL TABLET(SUBOXONE) SL SCH (08:35)
--- NOTE | 2019-08-03 14:35 | MHIPNPDOC ---
[facility] Progress Note Progress Note DATE OF SERVICE: 08/03/19 HISTORY: Per Dr. Pack "The patient, a 43-year-old man, presents to [facility] initially after becoming distorted, reportedly after using amp hetamines. He was brought in by his loan workout officer due to his bizarre behavior. He had recently been admitted several days ago for a similar presentation. He was noted to be bizarre, aggressive in his intoxicated state which had not resolved and was admitted out of abundance of caution. When the patient was met with, he reported that he was unsure as to why he was admitted. He was amenable, friendly, primarily wanted his buprenorphine and stated that he felt that people "lied" about him, but did not appear overly concerned about this. He reports that he has no change in his depression symptoms, psychosis symptoms, or any symptoms from his previous admission with Dr. Michelle. He reports that he otherwise feels fine and was sad about being admitted over Thanksgiving." VITAL SIGNS: See below. NEW TEST RESULTS: See below. CURRENT MEDICATIONS: See below. MENTAL STATUS EXAMINATION: General: Dressed in personal clothes, good hygiene. Speech: Spontaneous and fluid, normal r/t/v. Thought processes: Linear and logical MSK: Smooth and coordinated gait, no signs of tremors or involuntary orofacial movements Thought content: Future orientated, negative for SI/HI/thought delusions Abstract reasoning, and computation: Intact Description of associations: Intact Description of abnormal or psychotic thoughts: Denies any suicidal or homicidal ideation. Denies any auditory or visual hallucinations. Does not appear to be responding to internal stimuli. Does not appear to be endorsing any bizarre or paranoid ideation. Judgment: fair Insight: fair Orientation: Alert and orientated 3 Cognition: Grossly normal Recent and remote memory: Intact Attention span and concentration: Intact Fund of knowledge: Adequate Mood: "I'm OK ma'am" Affect: Euthymic, reactive, appropriate, congruent with mood. 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 Opioid use disorder, severe. Tobacco use disorder, severe. Cannabis use disorder, severe. ASSESSMENT: Patient was pleasant and cooperative today. He was not irritable, didn't seem to have drug cravings today. He was happy because his GF came to visit and he said she was one of the major reasons he had to live for, for her and her children. He is future orientated, wants to go back to [facility] and continue treatment as OP. MANAGEMENT PLAN: As per Adr. Admas who plans to d/c Sunday (tomorrow) Medications: Suboxone 8-2mg daily zyprexa 5mg daily vistaril 50mg qhs TIME SPENT: 20 minutes. Vital Signs Vital Signs Date Time Temp Pulse Resp B/P (MAP) Pulse Ox O2 Delivery O2 Flow Rate FiO2 08/03/19 06:04 98.3 54 18 115/68 (84) Room Air 07/30/19 18:12 99 Current Medications Current Medications Medications (Trade) Dose Ordered Sig/Dom Route PRN Reason Start Time Stop Time Status Last Admin Dose Admin Al Hydrox/Mg Hydrox/Simethicone (Mylanta) 30 ml Q4HP PRN PO HEARTBURN/INDIGESTION 07/30/19 17:30 08/03/19 12:30 Benzocaine (Anbesol Gel) 1 dose QIDP PRN MT tooth pain 08/02/19 17:30 Buprenorphine/ Naloxone (Suboxone 8/2mg) 2 tab DAILY SL 08/01/19 09:00 08/03/19 08:35 Home Med (Med Rec Complete!) ASDIRECTED XX 07/30/19 15:30 07/30/19 15:30 DC Hydroxyzine HCl (Atarax) 50 mg QHS PO 07/31/19 21:00 08/02/19 20:18 Ibuprofen (Advil) 400 mg Q4HP PRN PO PAIN 08/02/19 17:30 Ibuprofen (Advil) 400 mg Q6HP PRN PO PAIN 07/30/19 17:30 08/02/19 17:21 DC 08/02/19 14:50 Lorazepam (Ativan) 2 mg Q4HP PRN PO ANXIETY/AGITATION 07/30/19 17:30 Magnesium Hydroxide (Milk Of Magnesia) 30 ml DAILYPRN PRN PO CONSTIPATION 07/30/19 17:30 Nicotine (Nicoderm Cq 21mg) 1 patch DAILY TD 07/30/19 09:00 07/31/19 09:08 Olanzapine (ZyPREXA ZYDIS) 10 mg Q4HP PRN PO ANXIETY/AGITATION 07/30/19 17:30 Olanzapine (ZyPREXA) 5 mg DAILY PO 07/31/19 09:00 07/31/19 11:57 Trazodone HCl (Desyrel) 50 mg QHSP PRN PO INSOMNIA 07/30/19 17:30 08/02/19 20:18 Allergies Coded Allergies: No Known Allergies (Unverified , 12/09/18) JOHANNA GIBSON MD Aug 03, 2019 14:34
[2019-08-03 15:39] VITALS: BP 137/82
[2019-08-03] MEDS: CLOTRIMAZOLE 1% TOPICAL CREAM 30GM TOP SCH ×2 (17:15→20:38)
[2019-08-03] MEDS: traZODone 50 MG TAB PO PRN (20:19)
[2019-08-03] MEDS: hydrOXYzine 50 MG TAB PO SCH (20:19)
[2019-08-04 06:25] VITALS: BP 112/59
[2019-08-04] MEDS: NICOTINE 21MG/24HR 1 EA TRANSDERMAL TD SCH (08:30)
[2019-08-04] MEDS: BUPRENORPHINE/NALOXONE 8-2MG SUBLINGUAL TABLET(SUBOXONE) SL SCH (08:30)
[2019-08-04] MEDS: OLANZapine 5 MG TAB PO SCH (08:30)
[2019-08-04] MEDS: CLOTRIMAZOLE 1% TOPICAL CREAM 30GM TOP SCH (08:49)
[2019-08-04] MEDS ORDERED: OLAN5TAB PO (09:07)
[2019-08-04] MEDS ORDERED: HYDR50CA2 PO (09:07)
--- NOTE | 2019-08-04 09:08 | MHDSPDOC ---
[facility] Discharge Summary Discharge Summary DATE OF ADMISSION: Jul 30, 2019 at 5:25 pm DATE OF DISCHARGE: Aug 04, 2019 DISCHARGE DIAGNOSES: 1. Substance induced mood disorder with paranoia, delusions and suicidal ideations. 2. Methamphetamine use disorder, severe. 3. Cannabis use disorder, severe. 4. Opioid use disorder, on Suboxone. REASON FOR ADMISSION: Per Dr. Pack "The patient, a 43-year-old man, presents to [facility] initially after becoming distorted, reportedly after using amphetamines. He was brought in by his multisensor intelligence officer due to his bizarre behavior. He had recently been admitted several days ago for a similar presentation. He was noted to be bizarre, aggressive in his intoxicated state which had not resolved and was admitted out of abundance of caution. When the patient was met with, he reported that he was unsure as to why he was admitted. He was amenable, friendly, primarily wanted his buprenorphine and stated that he felt that people "lied" about him, but did not appear overly concerned about this. He reports that he has no change in his depression symptoms, psychosis symptoms, or any symptoms from his previous admission with Dr. Michelle. He reports that he otherwise feels fine and was sad about being admitted over ." CONSULTANTS INVOLVED: none TREATMENT AND PROGRESS ON THE UNIT : Pt was admitted to [facility], seen for psychiatric assessment and restarted on his outpatient medication Suboxone 8-2mg daily per An. He was started on zyprexa 5mg daily for psychosis and vistaril 50mg qhs. He was provided trazodone 50mg qhs prn insomnia. Pt found his medications beneficial and tolerated them well. His symptoms of psychosis improved quickly to no symptoms with lack of methamphetamine use most likely causing the psychotic symptoms. He attended groups daily during his stay. His symptoms improved greatly with treatment. On day of discharge he denied depression, anxiety, insomnia, SI/HI, hallucinations, delusions, opiate withdrawal symptoms. He was discharged home with follow-up at [facility] and [facility]. He felt safe for discharge. DISCHARGE ASSESSMENT: Pt seen and states that his mood is "good" and that he's looking forward to going home today. States his girlfriend came to visit him over the weekend which was good as she is supportive of him. He states she and her children are his reason for living. States he slept well last night. Feels he is tolerating his medications and they're beneficial. He is pleasant and cooperative when seen. He is attending groups and finding them beneficial, learning coping mechanisms. He denies depression, anxiety, insomnia, SI/HI, hallucinations, delusions, opiate withdrawal symptoms. Pt feels safe to d/c home. MENTAL STATUS EXAMINATION ON DISCHARGE: General: Well dressed with good hygiene Speech: Spontaneous and fluid Thought processes: Linear and logical, denies drug cravings MSK: Smooth and coordinated gait, no signs of tremors or involuntary orofacial movements Thought content: Future orientated Abstract reasoning, and computation: Intact Description of associations: Intact Description of abnormal or psychotic thoughts: Denies any suicidal or homicidal ideation. Denies any auditory or visual hallucinations. Does not appear to be responding to internal stimuli. Does not appear to be endorsing any bizarre or paranoid ideation. Judgment: good Insight: good Orientation: Alert and orientated 3 Cognition: Grossly normal Recent and remote memory: Intact Attention span and concentration: Intact Fund of knowledge: Adequate Mood: "good" Affect: Euthymic with a full range MEDICATIONS ON DISCHARGE: Suboxone 8-2mg daily thru [facility] zyprexa 5mg daily vistaril 50mg qhs PLAN/FOLLOWUP ARRANGEMENTS: D/c home with follow-up at [facility] and [facility] The amount of time spent in the coordination of care for this patient was approximately 30 minutes. Vital Signs/I&Os Vital Signs Date Time Temp Pulse Resp B/P (MAP) Pulse Ox O2 Delivery O2 Flow Rate FiO2 08/04/19 06:25 97.1 59 16 112/59 (76) Room Air 07/30/19 18:12 99 Medications Scheduled Hydroxyzine Pamoate (Hydroxyzine Pamoate) 50 Mg Capsule, 50 MG PO QHS, (Reported) Olanzapine (Olanzapine) 5 Mg Tablet, 5 MG PO DAILY, (Reported) Miscellaneous Medications [Med Rec Comment] , (Reported) LIST OBTAINED FROM PHARMACY Allergies Coded Allergies: No Known Allergies (Unverified , 12/09/18) KATLYN MICHELLE DO Aug 04, 2019 9:08 am
== END 2019-08-04 12:30 | disposition home or self-care (01) | DRG 773 ==
LOC: M ED 12:18 → M ED INP 17:25 → M PSY 17:56
PROVIDERS: ADMIT Psychiatry & Neurology Psychiatry; ATTEND Psychiatry & Neurology Psychiatry
DX: F15.250 Other stimulant dependence with stimulant-induced psychotic disorder with delusions (principal); F11.20 Opioid dependence, uncomplicated; F12.20 Cannabis dependence, uncomplicated; F17.210 Nicotine dependence, cigarettes, uncomplicated; G89.29 Other chronic pain; B19.20 Unspecified viral hepatitis C without hepatic coma; Z81.1 Family history of alcohol abuse and dependence; Z79.899 Other long term (current) drug therapy; R45.851 Suicidal ideations

== ENCOUNTER 2019-08-07 11:43 | Inpatient (IN) | payer MEDICAID, OTHER ==
[~2019-08-07] VITALS: Ht 182.9 cm; Wt 87.9 kg
[~2019-08-07 11:43] MED LIST changes: +HYDR50CA2 PO; +MED REC COMMENT; +OLAN5TAB PO; +SUBO8MIS
[2019-08-07] MEDS ORDERED: SUBO8MIS SL (11:50)
[2019-08-07] MEDS ORDERED: METAL LOCK LOOP XX ONE (12:45)
[2019-08-07 13:48] LABS: HEMATOCRIT 41.8 % (42.0-52.0); HEMOGLOBIN 13.9 g/dl (13.5-17.5); MEAN CORPUSCULAR HEMOGLOBIN 30.8 pg (27.0-33.0); MEAN CORPUSCULAR HGB CONC 33.3 g/dl (32.0-36.5); MEAN CORPUSCULAR VOLUME 92.7 fl (80.0-96.0); PLATELET COUNT, AUTOMATED 218 10^3/uL (150-450); RED BLOOD COUNT 4.51 10^6/uL (4.30-6.10); WHITE BLOOD COUNT 11.2 10^3/uL (4.0-10.0)
[2019-08-07 14:16] LABS: AMPHETAMINES LEVEL URINE NEGATIVE (NEGATIVE); BARBITURATES URINE NEGATIVE (NEGATIVE); BENZODIAZEPINES URINE NEGATIVE (NEGATIVE); CANNABINOIDS URINE NEGATIVE (NEGATIVE); COCAINE METABOLITE URINE NEGATIVE (NEGATIVE); METHADONE URINE NEGATIVE (NEGATIVE); OPIATES URINE NEGATIVE (NEGATIVE); PHENCYCLIDINE URINE NEGATIVE (NEGATIVE)
[2019-08-07 14:16] LABS: ACETAMINOPHEN LEVEL < 2.0 UG/ML (10.0-30.0); ALBUMIN 3.9 GM/DL (3.2-5.2); ALT/SGPT 21 U/L (12-78); BILIRUBIN,DIRECT 0.2 MG/DL (0.0-0.2); BILIRUBIN,TOTAL 0.6 MG/DL (0.2-1.0); BLOOD UREA NITROGEN 29 MG/DL (7-18); CALCIUM LEVEL 9.4 MG/DL (8.5-10.1); CARBON DIOXIDE LEVEL 30 MEQ/L (21-32); CHLORIDE LEVEL 104 MEQ/L (98-107); CREATININE FOR GFR 1.38 MG/DL (0.70-1.30); ETHYL ALCOHOL (ETHANOL) < 0.003 % (0.000-0.010); GLOMERULAR FILTRATION RATE > 60.0 (>60); GLUCOSE, FASTING 100 MG/DL (70-100); POTASSIUM SERUM 4.4 MEQ/L (3.5-5.1); SALICYLATE LEVEL < 1.7 MG/DL (5.0-30.0); SODIUM LEVEL 141 MEQ/L (136-145); THYROID STIMULATING HORMONE 0.668 uIU/ML (0.358-3.740); TOTAL PROTEIN 7.2 GM/DL (6.4-8.2)
[2019-08-07] MEDS ORDERED: MAALOX 30 ML SUSP *UDC PO PRN (15:00)
[2019-08-07] MEDS ORDERED: MOM 30ML SUSPENSION UDC PO PRN (15:00)
[2019-08-07] MEDS ORDERED: TRAZ-252 PO (15:56)
[2019-08-07] MEDS ORDERED: OLAN5TAB PO (15:56)
[2019-08-07] MEDS ORDERED: HYDR50CA2 PO (15:56)
[2019-08-07] MEDS: hydrOXYzine 50 MG TAB PO SCH (21:00)
[2019-08-08 06:02] VITALS: BP 126/64
[2019-08-08] MEDS: BUPRENORPHINE/NALOXONE 8-2MG SUBLINGUAL TABLET(SUBOXONE) SL SCH (08:15)
[2019-08-08] MEDS: NICOTINE 21MG/24HR 1 EA TRANSDERMAL TD SCH (08:16)
[2019-08-08] MEDS ORDERED: OLANZapine 5 MG TAB PO SCH (09:00)
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
[2019-08-08] MEDS ORDERED: IBUPROFEN 800 MG TAB PO PRN (12:45)
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
[2019-08-08 16:00] VITALS: BP 120/67
[2019-08-08] MEDS: hydrOXYzine 50 MG TAB PO SCH (20:40)
[2019-08-08] MEDS: traZODone 50 MG TAB PO PRN (20:41)
[2019-08-08] MEDS: OLANZapine 5 MG TAB PO SCH (20:41)
[2019-08-09 06:52] VITALS: BP 108/52
[2019-08-09] MEDS: BUPRENORPHINE/NALOXONE 8-2MG SUBLINGUAL TABLET(SUBOXONE) SL SCH (08:56)
[2019-08-09] MEDS: NICOTINE 21MG/24HR 1 EA TRANSDERMAL TD SCH (08:56)
--- NOTE | 2019-08-09 09:39 | MHIPNPDOC ---
[facility] Progress Note Progress Note DATE OF SERVICE: 08/09/19 HISTORY: Patient seen states he's "fine," denies any problems. States he's tolerating his medication and feels it's helpful. Continues to refuse inpatient rehab stating he wants to continue with [facility] outpatient even though his compliance with the program is poor with roughly occasional attendance mostly to get his suboxone and continued substance use with psychedelics and hypnotics he knows will not be picked up a regular utox. Appears to come here to escape getting in trouble with parole when he uses substances b/c know utox at parole office would indicate his drug use and doesn't want to go back to custodial. 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 Denies SI/HI, hallucinations, delusions. Feels safe here. Appears uninterested really in treatment or substance sobriety at all. Pt seen and states he used Solange last night so came here b/c he didn't feel safe so thought he needed to come here. Denies that it was his recent Solange use that caused him to feel he needed to come. Denies that anything was wrong with his thinking last night. Refused inpatient rehab stating he still wants to work with [facility] (even though only minimally compliant with outpt treatment there most so that he can get his suboxone) and states he's been to all of them and doesn't want to go home soon. Refused his zyprexa today and states that's b/c he takes it at night, so will change it to nightly dosing. Denies SI/HI, hallucinations, delusions. Feels safe here. Wants to go home soon. Highly recommend rehab thru the courts and his parole as this is pt's 3rd admission in 3wks for substance induced psychosis and does not appear invested in treatment/rehab at all so pattern of substance use and admission unlikely to stop unless pt put in court ordered rehab. VITAL SIGNS: See below. NEW TEST RESULTS: See below. CURRENT MEDICATIONS: See below. MENTAL STATUS EXAMINATION: General: Dressed in personal clothes, fair hygiene. Speech: Spontaneous and fluid, normal r/t/v. Thought processes: Linear and logical MSK: Smooth and coordinated gait, no signs of tremors or involuntary orofacial movements Thought content: Future orientated, negative for SI/HI/thought delusions Abstract reasoning, and computation: Intact Description of associations: Intact Description of abnormal or psychotic thoughts: Denies any suicidal or homicidal ideation. Denies any auditory or visual hallucinations. Does not appear to be responding to internal stimuli. Does not appear to be endorsing any bizarre or paranoid ideation. Judgment: poor into substance abuse Insight: poor into substance abuse Orientation: Alert and orientated 3 Cognition: Grossly normal Recent and remote memory: Intact Attention span and concentration: Intact Fund of knowledge: Adequate Mood: "fine" Affect: Euthymic, appropriate, congruent with mood. 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 Opioid use disorder, severe. Tobacco use disorder, severe. Cannabis use disorder, severe. ASSESSMENT: Patient seen states he's "fine," denies any problems. States he's tolerating his medication and feels it's helpful. Continues to refuse inpatient rehab stating he wants to continue with [facility] outpatient even though his co mpliance with the program is poor with roughly occasional attendance mostly to get his suboxone and continued substance use with psychedelics and hypnotics he knows will not be picked up a regular utox. Appears to come here to escape getting in trouble with parole when he uses substances b/c know utox at parole office would indicate his drug use and doesn't want to go back to custodial. 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 Denies SI/HI, hallucinations, delusions. Feels safe here. Appears uninterested really in treatment or substance sobriety at all. MANAGEMENT PLAN: D/c Sunday with systems support officer Medications: Suboxone 8-2mg daily zyprexa 5mg qhs vistaril 50mg qhs TIME SPENT: 30 minutes. Vital Signs Vital Signs Date Time Temp Pulse Resp B/P (MAP) Pulse Ox O2 Delivery O2 Flow Rate FiO2 08/09/19 06:52 98.9 52 12 108/52 (70) 08/08/19 10:18 Room Air 08/07/19 16:23 98 Current Medications Current Medications Medications (Trade) Dose Ordered Sig/Dom Route PRN Reason Start Time Stop Time Status Last Admin Dose Admin Al Hydrox/Mg Hydrox/Simethicone (Mylanta) 30 ml Q4HP PRN PO HEARTBURN/INDIGESTION 08/07/19 15:00 Buprenorphine/ Naloxone (Suboxone 8/2mg) 2 tab DAILY SL 08/08/19 09:00 08/09/19 08:56 Home Med (Med Rec Complete!) ASDIRECTED XX 08/07/19 16:00 08/07/19 16:04 DC Hydroxyzine HCl (Atarax) 50 mg QHS PO 08/07/19 21:00 08/08/19 20:40 Ibuprofen (Advil) 800 mg Q8HP PRN PO MODERATE PAIN (PS 5-7) 08/08/19 12:45 Magnesium Hydroxide (Milk Of Magnesia) 30 ml DAILYPRN PRN PO CONSTIPATION 08/07/19 15:00 Nicotine (Nicoderm Cq 21mg) 1 patch DAILY TD 08/08/19 09:00 Olanzapine (ZyPREXA) 5 mg DAILY PO 08/08/19 09:00 08/08/19 11:57 DC Olanzapine (ZyPREXA) 5 mg QHS PO 08/08/19 21:00 08/08/19 20:41 Trazodone HCl (Desyrel) 50 mg QHSP PRN PO INSOMNIA 08/07/19 15:00 08/08/19 20:41 Allergies Coded Allergies: No Known Allergies (Unverified , 12/09/18) KTALYN GRUBBS DO Aug 09, 2019 9:38 am
[2019-08-09 15:33] VITALS: BP 112/56
[2019-08-09] MEDS: hydrOXYzine 50 MG TAB PO SCH (20:12)
[2019-08-09] MEDS: OLANZapine 5 MG TAB PO SCH (20:13)
[2019-08-09] MEDS: traZODone 50 MG TAB PO PRN (20:13)
[2019-08-10 06:07] VITALS: BP 97/55
[2019-08-10] MEDS: NICOTINE 21MG/24HR 1 EA TRANSDERMAL TD SCH (08:54)
[2019-08-10] MEDS: BUPRENORPHINE/NALOXONE 8-2MG SUBLINGUAL TABLET(SUBOXONE) SL SCH (08:54)
--- NOTE | 2019-08-10 09:03 | MHIPNPDOC ---
[facility] Progress Note Progress Note DATE OF SERVICE: 08/10/19 HISTORY: Patient seen states he's "fine," denies any problems. States he's tolerating his medication and feels it's helpful. Continues to refuse inpatient rehab stating he wants to continue with [facility] outpatient even though his compliance with the program is poor with roughly occasional attendance mostly to get his suboxone and continued substance use with psychedelics and hypnotics he knows will not be picked up a regular utox. Appears to come here to escape getting in trouble with parole when he uses substances b/c know utox at parole office would indicate his drug use and doesn't want to go back to skilled nursing. 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 Denies SI/HI, hallucinations, delusions. Feels safe here. Appears uninterested really in treatment or substance sobriety at all. Pt seen and states he used Solange last night so came here b/c he didn't feel safe so thought he needed to come here. Denies that it was his recent Solange use that caused him to feel he needed to come. Denies that anything was wrong with his thinking last night. Refused inpatient rehab stating he still wants to work with [facility] (even though only minimally compliant with outpt treatment there most so that he can get his suboxone) and states he's been to all of them and doesn't want to go home soon. Refused his zyprexa today and states that's b/c he takes it at night, so will change it to nightly dosing. Denies SI/HI, hallucinations, delusions. Feels safe here. Wants to go home soon. Highly recommend rehab thru the courts and his parole as this is pt's 3rd admission in 3wks for substance induced psychosis and does not appear invested in treatment/rehab at all so pattern of substance use and admission unlikely to stop unless pt put in court ordered rehab. VITAL SIGNS: See below. NEW TEST RESULTS: See below. CURRENT MEDICATIONS: See below. MENTAL STATUS EXAMINATION: General: Dressed in personal clothes, fair hygiene. Speech: Spontaneous and fluid, normal r/t/v. Thought processes: Linear and logical MSK: Smooth and coordinated gait, no signs of tremors or involuntary orofacial movements Thought content: Future orientated, negative for SI/HI/thought delusions Abstract reasoning, and computation: Intact Description of associations: Intact Description of abnormal or psychotic thoughts: Denies any suicidal or homicidal ideation. Denies any auditory or visual hallucinations. Does not appear to be responding to internal stimuli. Does not appear to be endorsing any bizarre or paranoid ideation. Judgment: poor into substance abuse Insight: poor into substance abuse Orientation: Alert and orientated 3 Cognition: Grossly normal Recent and remote memory: Intact Attention span and concentration: Intact Fund of knowledge: Adequate Mood: "ok" Affect: Euthymic, appropriate, congruent with mood. 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 Opioid use disorder, severe. Tobacco use disorder, severe. Cannabis use disorder, severe. ASSESSMENT: Patient seen states he's "ok," denies any problems. States he's tolerating his medication and feels it's helpful. States he's just sleeping here until he can be discharged and taking his suboxone. Continues to refuse inpatient rehab stating he wants to continue with [facility] outpatient even though his compliance with the program is poor with roughly occasional attendance mostly to get his suboxone and continued substance use with psychedelics and hypnotics he knows will not be picked up a regular utox. Appears to come here to escape getting in trouble with parole when he uses substances b/c know utox at parole office would indicate his drug use and doesn't want to go back to skilled nursing. 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 Denies SI/HI, hallucinations, delusions. Feels safe here. Appears uninterested really in treatment or substance sobriety at all. MANAGEMENT PLAN: D/c Sunday with employment officer Medications: Suboxone 8-2mg daily zyprexa 5mg qhs vistaril 50mg qhs TIME SPENT: 30 minutes. Vital Signs Vital Signs Date Time Temp Pulse Resp B/P (MAP) Pulse Ox O2 Delivery O2 Flow Rate FiO2 08/10/19 06:07 97.1 68 14 97/55 (69) Room Air 08/07/19 16:23 98 Current Medications Current Medications Medications (Trade) Dose Ordered Sig/Dom Route PRN Reason Start Time Stop Time Status Last Admin Dose Admin Al Hydrox/Mg Hydrox/Simethicone (Mylanta) 30 ml Q4HP PRN PO HEARTBURN/INDIGESTION 08/07/19 15:00 Buprenorphine/ Naloxone (Suboxone 8/2mg) 2 tab DAILY SL 08/08/19 09:00 08/10/19 08:54 Home Med (Med Rec Complete!) ASDIRECTED XX 08/07/19 16:00 08/07/19 16:04 DC Hydroxyzine HCl (Atarax) 50 mg QHS PO 08/07/19 21:00 08/09/19 20:12 Ibuprofen (Advil) 800 mg Q8HP PRN PO MODERATE PAIN (PS 5-7) 08/08/19 12:45 Magnesium Hydroxide (Milk Of Magnesia) 30 ml DAILYPRN PRN PO CONSTIPATION 08/07/19 15:00 Nicotine (Nicoderm Cq 21mg) 1 patch DAILY TD 08/08/19 09:00 Olanzapine (ZyPREXA) 5 mg DAILY PO 08/08/19 09:00 08/08/19 11:57 DC Olanzapine (ZyPREXA) 5 mg QHS PO 08/08/19 21:00 08/09/19 20:13 Trazodone HCl (Desyrel) 50 mg QHSP PRN PO INSOMNIA 08/07/19 15:00 08/09/19 20:13 Allergies Coded Allergies: No Known Allergies (Unverified , 12/09/18) KATLYN GRUBBS DO Aug 10, 2019 9:03 am
[2019-08-10 15:37] VITALS: BP 149/72
[2019-08-10] MEDS: traZODone 50 MG TAB PO PRN (20:48)
[2019-08-10] MEDS: OLANZapine 5 MG TAB PO SCH (20:48)
[2019-08-10] MEDS: hydrOXYzine 50 MG TAB PO SCH (21:00)
[2019-08-11 06:45] VITALS: BP 90/59
[2019-08-11] MEDS: NICOTINE 21MG/24HR 1 EA TRANSDERMAL TD SCH (08:56)
[2019-08-11] MEDS: BUPRENORPHINE/NALOXONE 8-2MG SUBLINGUAL TABLET(SUBOXONE) SL SCH (08:57)
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
== END 2019-08-11 10:12 | disposition home or self-care (01) | DRG 773 ==
LOC: M ED 11:43 → M ED INP 14:47 → M PSY 16:35
PROVIDERS: ADMIT Psychiatry & Neurology Psychiatry; ATTEND Psychiatry & Neurology Addiction Medicine
DX: F15.24 Other stimulant dependence with stimulant-induced mood disorder (principal); F12.20 Cannabis dependence, uncomplicated; F11.10 Opioid abuse, uncomplicated; R45.851 Suicidal ideations; Z62.810 Personal history of physical and sexual abuse in childhood; Z79.899 Other long term (current) drug therapy; F17.200 Nicotine dependence, unspecified, uncomplicated; M51.26 Other intervertebral disc displacement, lumbar region

== ENCOUNTER 2020-02-09 20:54 | Emergency (ER) | payer OTHER ==
[~2020-02-09 20:54] MED LIST changes: +SUBO8MIS SL
[2020-02-09] MEDS ORDERED: HALOPERIDOL 5MG/ML VIAL (J1630 PER 1) IM STA (20:56)
[2020-02-09] MEDS ORDERED: diphenhydrAMINE 50MG/ML VIAL (J1200) IM STA (20:56)
[2020-02-09] MEDS ORDERED: LORazepam 2 MG/ML VIAL IM STA (20:56)
[2020-02-09] MEDS ORDERED: HALOPERIDOL 5MG/ML VIAL (J1630 PER 1) As Ordered ONE ×2 (20:57→21:03)
[2020-02-09] MEDS ORDERED: diphenhydrAMINE 50MG/ML VIAL (J1200) As Ordered ONE (20:57)
[2020-02-09] MEDS ORDERED: LORazepam 2 MG/ML VIAL As Ordered ONE (20:58)
[2020-02-09 21:25] LABS: HEMATOCRIT 40.3 % (42.0-52.0); HEMOGLOBIN 13.9 g/dl (13.5-17.5); MEAN CORPUSCULAR HEMOGLOBIN 30.5 pg (27.0-33.0); MEAN CORPUSCULAR HGB CONC 34.5 g/dl (32.0-36.5); MEAN CORPUSCULAR VOLUME 88.4 fl (80.0-96.0); PLATELET COUNT, AUTOMATED 235 10^3/uL (150-450); RED BLOOD COUNT 4.56 10^6/uL (4.30-6.10); WHITE BLOOD COUNT 12.7 10^3/uL (4.0-10.0)
[2020-02-09 21:49] LABS: AMPHETAMINES LEVEL URINE NEGATIVE (NEGATIVE); BARBITURATES URINE NEGATIVE (NEGATIVE); BENZODIAZEPINES URINE NEGATIVE (NEGATIVE); CANNABINOIDS URINE NEGATIVE (NEGATIVE); COCAINE METABOLITE URINE POSITIVE (NEGATIVE); METHADONE URINE NEGATIVE (NEGATIVE); OPIATES URINE POSITIVE (NEGATIVE); PHENCYCLIDINE URINE NEGATIVE (NEGATIVE)
[2020-02-09 22:01] VITALS: O2SAT 98
[2020-02-09 22:03] LABS: ALBUMIN 4.4 GM/DL (3.2-5.2); ALT/SGPT 42 U/L (12-78); BILIRUBIN,DIRECT 0.2 MG/DL (0.0-0.2); BILIRUBIN,TOTAL 0.7 MG/DL (0.2-1.0); BLOOD UREA NITROGEN 35 MG/DL (7-18); CALCIUM LEVEL 8.6 MG/DL (8.5-10.1); CARBON DIOXIDE LEVEL 24 MEQ/L (21-32); CHLORIDE LEVEL 108 MEQ/L (98-107); CREATININE FOR GFR 1.61 MG/DL (0.70-1.30); GLOMERULAR FILTRATION RATE 50.4 (>60); GLUCOSE, FASTING 162 MG/DL (70-100); POTASSIUM SERUM 3.9 MEQ/L (3.5-5.1); SALICYLATE LEVEL 1.8 MG/DL (5.0-30.0); SODIUM LEVEL 141 MEQ/L (136-145); TOTAL PROTEIN 7.4 GM/DL (6.4-8.2)
[2020-02-09 22:04] LABS: ACETAMINOPHEN LEVEL < 2.0 UG/ML (10.0-30.0); ETHYL ALCOHOL (ETHANOL) < 0.003 % (0.000-0.010)
[2020-02-09] MEDS ORDERED: NS 1,000 ML IV ONE (22:30)
[2020-02-09 22:56] LABS: CPK CREATINE PHOSPHOKINASE 2233 U/L (39-308)
[2020-02-10] MEDS ORDERED: NS 1,000 ML IV ONE (01:00)
[2020-02-10 06:00] VITALS: BP 121/73
[2020-02-11] MEDS ORDERED: IBUP-1022 PO (13:41)
[2020-02-11] MEDS ORDERED: LAMI1TAB7 PO (13:41)
[2020-02-11] MEDS ORDERED: PAXI10TA12 PO (13:41)
== END 2020-02-10 06:50 | disposition home or self-care (01) ==
LOC: M ED 20:54
DX: F19.129 Other psychoactive substance abuse with intoxication, unspecified (principal); Z86.19 Personal history of other infectious and parasitic diseases; F17.200 Nicotine dependence, unspecified, uncomplicated; F12.10 Cannabis abuse, uncomplicated; F14.10 Cocaine abuse, uncomplicated; Z79.899 Other long term (current) drug therapy
CPT/HCPCS: 80048; 80076; 80307; 82550; 84443; 85027; 96360; 96361; 96372; 99285; G0480; J1200; J1630; J2060

== ENCOUNTER 2020-02-11 13:34 | Emergency (ER) | payer OTHER ==
[~2020-02-11] VITALS: Ht 182.9 cm; Wt 114.7 kg
[2020-02-11] MEDS ORDERED: IBUP-1022 PO (13:41)
[2020-02-11] MEDS ORDERED: LAMI1TAB7 PO (13:41)
[2020-02-11] MEDS ORDERED: PAXI10TA12 PO (13:41)
[2020-02-11 16:23] VITALS: BP 126/83
== END 2020-02-11 16:25 | disposition home or self-care (01) ==
LOC: M ED 13:34
DX: M79.645 Pain in left finger(s) (principal); S60.415A Abrasion of left ring finger, initial encounter; W49.04XA Ring or other jewelry causing external constriction, initial encounter; Y99.8 Other external cause status; Y92.9 Unspecified place or not applicable; Y93.89 Activity, other specified; F17.200 Nicotine dependence, unspecified, uncomplicated; M51.26 Other intervertebral disc displacement, lumbar region; F32.9 Major depressive disorder, single episode, unspecified; F41.9 Anxiety disorder, unspecified; F11.10 Opioid abuse, uncomplicated; Z79.899 Other long term (current) drug therapy

== ENCOUNTER 2020-05-11 23:14 | Emergency (ER) | payer OTHER ==
[~2020-05-11] VITALS: Ht 185.4 cm; Wt 97.0 kg
[~2020-05-11 23:14] MED LIST changes: +IBUP-1022 PO; +LAMI1TAB7 PO; +PAXI10TA12 PO
[2020-05-12 01:15] VITALS: BP 133/66
--- NOTE | 2020-05-14 15:20 | ECGEPIP ---
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
== END 2020-05-12 01:30 | disposition home or self-care (01) ==
LOC: M ED 23:14
DX: F41.0 Panic disorder [episodic paroxysmal anxiety] (principal); F17.200 Nicotine dependence, unspecified, uncomplicated; F15.10 Other stimulant abuse, uncomplicated; F11.20 Opioid dependence, uncomplicated; Z79.899 Other long term (current) drug therapy

== ENCOUNTER 2020-05-19 00:57 | Emergency (ER) | payer OTHER ==
[~2020-05-19] VITALS: Ht 185.4 cm; Wt 98.0 kg
--- NOTE | 2020-05-19 02:24 | REPVR ---
PROCEDURE INFORMATION: Exam: XR Chest, 2 Views Exam date and time: 05/19/2020 1:57 AM Age: 44 years old Clinical indication: Chest pain TECHNIQUE: Imaging protocol: XR of the chest Views: 2 views. COMPARISON: CT Chest with contrast 12/09/2018 5:34 PM FINDINGS: Lungs: Unremarkable. No consolidation. No pulmonary edema. Pleural space: Unremarkable. No pleural effusion or pneumothorax is identified. Heart/Mediastinum: Unremarkable. No cardiomegaly. Bones/joints: Unremarkable. IMPRESSION: No acute findings. Electronically signed by: Curtis Harrison On 05/19/2020 02:23:55 AM
[2020-05-19 03:20] LABS: BASO % 0.2 % (0.0-1.0); EOS # 0.2 10^3/uL (0.0-0.5); EOS % 1.9 % (0.0-3.0); HEMATOCRIT 42.7 % (42.0-52.0); HEMOGLOBIN 14.3 g/dl (13.5-17.5); LYMPH # 1.3 10^3/uL (1.5-5.0); LYMPH % 15.3 % (24.0-44.0); MEAN CORPUSCULAR HEMOGLOBIN 30.5 pg (27.0-33.0); MEAN CORPUSCULAR HGB CONC 33.5 g/dl (32.0-36.5); MONO # 0.6 10^3/uL (0.0-0.8); MONO % 7.5 % (0.0-5.0); NEUTROPHILS # 6.3 10^3/uL (1.5-8.5); PLATELET COUNT, AUTOMATED 209 10^3/uL (150-450); RED BLOOD COUNT 4.69 10^6/uL (4.30-6.10); WHITE BLOOD COUNT 8.4 10^3/uL (4.0-10.0)
[2020-05-19 03:51] LABS: ALBUMIN 3.7 GM/DL (3.2-5.2); ALT/SGPT 14 U/L (12-78); BILIRUBIN,DIRECT < 0.1 MG/DL (0.0-0.2); BILIRUBIN,TOTAL 0.2 MG/DL (0.2-1.0); BLOOD UREA NITROGEN 14 MG/DL (7-18); CALCIUM LEVEL 8.6 MG/DL (8.5-10.1); CARBON DIOXIDE LEVEL 25 MEQ/L (21-32); CHLORIDE LEVEL 110 MEQ/L (98-107); CK-MB VALUE MASS 2.3 NG/ML (<3.6); CPK CREATINE PHOSPHOKINASE 157 U/L (39-308); FREE T4 1.32 NG/DL (0.76-1.46); GLOMERULAR FILTRATION RATE > 60.0 (>60); GLUCOSE, FASTING 93 MG/DL (70-100); MAGNESIUM LEVEL 2.1 MG/DL (1.8-2.4); MB/CK RELATIVE INDEX 1.46 (< OR =4); PHOSPHORUS LEVEL 3.8 MG/DL (2.5-4.9); POTASSIUM SERUM 4.1 MEQ/L (3.5-5.1); SODIUM LEVEL 140 MEQ/L (136-145); TOTAL PROTEIN 6.8 GM/DL (6.4-8.2); TROPONIN I < 0.02 NG/ML (< 0.10)
[2020-05-19 04:15] VITALS: BP 120/72
--- NOTE | 2020-05-22 11:05 | ECGEPIP ---
[facility] - ED Test Date: 2020-05-19 Pat Name: ELIJAH RAE Department: Room: - Gender: Male Credit Administrator: hillary : 1975 Requested By: TUCKER Cruz Order Number: [id number] Reading MD: Ricco Fleming Measurements Intervals [place] Rate: 73 P: 58 LA: 156 QRS: 53 QRSD: 98 T: 48 QT: 371 QTc: 409 Interpretive Statements SINUS RHYTHM POSSIBLE INFERIOR MYOCARDIAL INFARCTION, OF INDETERMINATE AGE SIMILAR TO 05/12/20 Electronically Signed on 05-22-2020 11:05:38 EDT by Ricco Fleming
== END 2020-05-19 04:24 | disposition home or self-care (01) ==
LOC: M ED 00:57
DX: R00.2 Palpitations (principal); B18.2 Chronic viral hepatitis C; F17.200 Nicotine dependence, unspecified, uncomplicated

== ENCOUNTER → 2020-05-27 | Outpatient (CLI) | payer OTHER ==
[~2020-05-27] MED LIST changes: +HYDR50TA70 PO; +INVE156I IM; +INVE6TAB3 PO; +LAMO100T3 PO; +PALI1TAB2 PO; +PARO5TAB PO; +TRAZ-189 PO; +TRAZ-257 PO; +med rec comment
[2020-05-27 15:01] LABS: HEMATOCRIT 45.2 % (42.0-52.0); HEMOGLOBIN 15.4 g/dl (13.5-17.5); MEAN CORPUSCULAR HEMOGLOBIN 30.9 pg (27.0-33.0); MEAN CORPUSCULAR HGB CONC 34.1 g/dl (32.0-36.5); MEAN CORPUSCULAR VOLUME 90.6 fl (80.0-96.0); PLATELET COUNT, AUTOMATED 202 10^3/uL (150-450); RED BLOOD COUNT 4.99 10^6/uL (4.30-6.10); WHITE BLOOD COUNT 8.6 10^3/uL (4.0-10.0)
[2020-05-27 15:35] LABS: ALBUMIN 3.8 GM/DL (3.2-5.2); ALT/SGPT 17 U/L (12-78); BILIRUBIN,TOTAL 0.5 MG/DL (0.2-1.0); BLOOD UREA NITROGEN 20 MG/DL (7-18); CARBON DIOXIDE LEVEL 30 MEQ/L (21-32); CHLORIDE LEVEL 103 MEQ/L (98-107); CREATININE FOR GFR 1.06 MG/DL (0.70-1.30); GLOMERULAR FILTRATION RATE > 60.0 (>60); GLUCOSE, FASTING 97 MG/DL (70-100); POTASSIUM SERUM 4.3 MEQ/L (3.5-5.1); SODIUM LEVEL 137 MEQ/L (136-145); TOTAL PROTEIN 7.1 GM/DL (6.4-8.2)
[2020-05-27 15:55] LABS: HEPATITIS B SURFACE ANTIGEN NEGATIVE (NEGATIVE)
[2020-05-27 16:23] LABS: HIV 1&2 SCREEN CENTAUR NEGATIVE (NEGATIVE)
[2020-05-27 16:32] LABS: HEPATITIS C VIRUS ABY INDEX > 11.0 INDEX (<0.8)
== END ==
LOC: M LAB 13:55
PROVIDERS: ATTEND Family Medicine
DX: F15.10 Other stimulant abuse, uncomplicated (principal)

== ENCOUNTER 2020-05-30 17:13 | Inpatient (IN) | payer OTHER ==
[~2020-05-30] VITALS: Ht 182.9 cm; Wt 93.3 kg
[~2020-05-30 17:13] MED LIST changes: -HYDR50TA70 PO; -INVE156I IM; -INVE6TAB3 PO; -LAMO100T3 PO; -PALI1TAB2 PO; -PARO5TAB PO; -TRAZ-189 PO; -TRAZ-257 PO; -med rec comment
[2020-05-30] MEDS ORDERED: NS 1,000 ML IV ONE (18:00)
[2020-05-30 18:13] LABS: HEMATOCRIT 42.1 % (42.0-52.0); HEMOGLOBIN 14.8 g/dl (13.5-17.5); MEAN CORPUSCULAR HEMOGLOBIN 30.5 pg (27.0-33.0); MEAN CORPUSCULAR HGB CONC 35.2 g/dl (32.0-36.5); MEAN CORPUSCULAR VOLUME 86.8 fl (80.0-96.0); PLATELET COUNT, AUTOMATED 245 10^3/uL (150-450); RED BLOOD COUNT 4.85 10^6/uL (4.30-6.10); WHITE BLOOD COUNT 9.9 10^3/uL (4.0-10.0)
--- NOTE | 2020-05-30 18:37 | REPVR ---
PROCEDURE INFORMATION: Exam: CT Head Without Contrast Exam date and time: 05/30/2020 6:06 PM Age: 44 years old Clinical indication: Alteration of consciousness; Transient alteration of awareness; Additional info: Altered loc TECHNIQUE: Imaging protocol: Computed tomography of the head without contrast. Radiation optimization: All CT scans at this facility use at least one of these dose optimization techniques: automated exposure control; mA and/or kV adjustment per patient size (includes targeted exams where dose is matched to clinical indication); or iterative reconstruction. COMPARISON: CT Head without contrast 12/09/2018 5:34 PM FINDINGS: Brain: Normal. No hemorrhage. Unremarkable white matter. No mass effect. Cerebral ventricles: No ventriculomegaly. Bones/joints: Unremarkable. No acute fracture. Paranasal sinuses: Visualized sinuses are unremarkable. No fluid levels. Mastoid air cells: Visualized mastoid air cells are well aerated. Soft tissues: Unremarkable. IMPRESSION: No acute intracranial abnormality. Electronically signed by: Hemanth Shaw On 05/30/2020 18:36:41 PM
[2020-05-30 18:50] LABS: ALBUMIN 4.1 GM/DL (3.2-5.2); ALT/SGPT 17 U/L (12-78); BILIRUBIN,DIRECT 0.4 MG/DL (0.0-0.2); BLOOD UREA NITROGEN 24 MG/DL (7-18); CALCIUM LEVEL 9.5 MG/DL (8.5-10.1); CARBON DIOXIDE LEVEL 26 MEQ/L (21-32); CHLORIDE LEVEL 98 MEQ/L (98-107); CREATININE FOR GFR 1.28 MG/DL (0.70-1.30); ETHYL ALCOHOL (ETHANOL) < 0.003 % (0.000-0.010); GLOMERULAR FILTRATION RATE > 60.0 (>60); GLUCOSE, FASTING 124 MG/DL (70-100); POTASSIUM SERUM 3.6 MEQ/L (3.5-5.1); SALICYLATE LEVEL 3.8 MG/DL (5.0-30.0); SODIUM LEVEL 134 MEQ/L (136-145); TOTAL PROTEIN 7.5 GM/DL (6.4-8.2)
[2020-05-30 18:54] LABS: AMPHETAMINES LEVEL URINE POSITIVE (NEGATIVE); BARBITURATES URINE NEGATIVE (NEGATIVE); BENZODIAZEPINES URINE NEGATIVE (NEGATIVE); CANNABINOIDS URINE POSITIVE (NEGATIVE); COCAINE METABOLITE URINE NEGATIVE (NEGATIVE); METHADONE URINE NEGATIVE (NEGATIVE); OPIATES URINE POSITIVE (NEGATIVE); PHENCYCLIDINE URINE NEGATIVE (NEGATIVE)
[2020-05-31] MEDS ORDERED: METAL LOCK LOOP XX ONE (00:09)
[2020-05-31] MEDS ORDERED: TRAZ-257 PO (01:56)
[2020-05-31] MEDS ORDERED: med rec comment (01:57)
[2020-05-31] MEDS ORDERED: HYDR50TA70 PO (08:33)
[2020-05-31] MEDS ORDERED: PARoxetine 10MG TABLET PO SCH (09:00)
[2020-05-31] MEDS ORDERED: lamoTRIgine 100MG TAB PO SCH (09:00)
[2020-05-31] MEDS ORDERED: OLANZapine 5 MG TAB PO SCH (09:00)
[2020-05-31] MEDS ORDERED: BUPRENORPHINE/NALOXONE 8-2MG SUBLINGUAL TABLET(SUBOXONE) SL SCH (09:00)
[2020-05-31] MEDS ORDERED: hydrOXYzine 50 MG TAB PO PRN (15:30)
[2020-05-31] MEDS ORDERED: MAALOX 30 ML SUSP *UDC PO PRN (15:30)
[2020-05-31] MEDS ORDERED: MOM 30ML SUSPENSION UDC PO PRN (15:30)
[2020-05-31] MEDS ORDERED: ACETAMINOPHEN TAB 650MG DOSE (2X325MG) PO PRN (15:30)
[2020-05-31 17:23] VITALS: BP 118/83
[2020-05-31] MEDS: traZODone 100 MG TAB PO SCH (20:43)
[2020-05-31] MEDS: OLANZapine 5 MG TAB PO SCH (20:43)
[2020-05-31] MEDS ORDERED: traZODone 100 MG TAB PO SCH (21:00)
[2020-06-01 06:34] VITALS: BP 127/71
--- NOTE | 2020-06-01 08:55 | ECGEPIP ---
[facility] - ED Test Date: 2020-05-30 Pat Name: ELIJAH RAE Department: Room: - Gender: Male Plugger Man: katie : 1975 Requested By: DOUG VAZQUEZ Order Number: [id number] Reading MD: Ricco Fleming Measurements Intervals [place] Rate: 74 P: 65 LA: 162 QRS: 67 QRSD: 104 T: 51 QT: 399 QTc: 443 Interpretive Statements SINUS RHYTHM POSSIBLE INFERIOR MYOCARDIAL INFARCTION, PROBABLY OLD POOR R WAVE PROGRESSION BENIGN EARLY REPOLARIZATION SIMILAR TO 05/19/20 Electronically Signed on 06-01-2020 8:54:49 EDT by Ricco Fleming
[2020-06-01] MEDS: BUPRENORPHINE/NALOXONE 8-2MG SUBLINGUAL TABLET(SUBOXONE) SL SCH (09:27)
[2020-06-01] MEDS: lamoTRIgine 100MG TAB PO SCH (09:28)
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
--- NOTE | 2020-06-01 16:07 | CR.PDOC ---
General Date of Consultation: Jun 01, 2020 Attending Physician: ARIADNE QUIROS DO Consultation Hospitalist Consultation. CHIEF COMPLAINT: psychosis HISTORY OF PRESENT ILLNESS: This is a 43 year old male with h/o psychotic disorder and polysubstance abuse presents for evaluation for psychosis. Pt admitted to [facility]. Hospitalist consulted for medical comanagement. Pt denies CP/SOB/palpitations. No N/V/Abd pain. Denies any complaints. PAST MEDICAL HISTORY: As per HPI PAST SURGICAL HISTORY: Abscess I&D SOCIAL HISTORY: Smokes 1/2 ppd. no alcohol. +Solange. H/o heroin use. FAMILY HISTORY: Non contributory. ALLERGIES: Please see below. REVIEW OF SYSTEMS: HEENT: Denies sore throat/headache CARDIOVASCULAR: Denies chest pain/palpitations RESPIRATORY: Denies shortness of breath/cough GASTROINTESTINAL: denies nausea/vomiting GENITOURINARY: Denies dysuria/urinary urgency. MUSCULOSKELETAL: Denies myalgias/arthralgias NEUROLOGICAL: Denies any focal weakness HOME MEDICATIONS: Please see below. PHYSICAL EXAMINATION: Vitals: (see below) General: No acute distress, laying comfortably in bed. HEENT: Moist mucous membranes. Neck: No JVD or lymphadenopathy Cardiac: RRR, No murmurs Pulm: Clear to auscultation b/l. No wheezing, rhonchi Abd: NT/ND + BS Ext: No edema or cyanosis LABORATORY DATA: See below. ASSESSMENT/PLAN: 1. Psychosis with polysubstance abuse- management per psych. 2. h/o Chronic back pain - no alarming signs. ibuprofen prn. f/u ortho outpt. DVT prophy: OOB/Amb Thank you for the consultation. Please call with questions. Vital Signs/I&O Vital Signs Date Time Temp Pulse Resp B/P (MAP) Pulse Ox O2 Delivery O2 Flow Rate FiO2 06/01/20 06:34 97.6 60 18 127/71 (89) Room Air 05/31/20 17:23 95 Allergies Coded Allergies: No Known Allergies (Unverified , 12/09/18) Home Medications Scheduled Buprenorphine HCl/Naloxone HCl (Suboxone 8 mg-2 mg Sl Film) 1 Each Film, 1 STRIP SL DAILY, (Reported) Lamotrigine (Lamictal) 100 Mg Tablet, 100 MG PO DAILY, (Reported) Olanzapine (Olanzapine) 5 Mg Tablet, 5 MG PO QHS, (Reported) Paroxetine HCl (Paxil) 10 Mg Tablet, 10 MG PO QHS, (Reported) Scheduled PRN Hydroxyzine HCl (Hydroxyzine HCl) 50 Mg Tablet, 50 MG PO QHS PRN for SLEEP, (Reported) Trazodone HCl (Trazodone HCl) 100 Mg Tablet, 100 MG PO QHS PRN for SLEEP, (Reported) EMMA ESTRADA MD Jun 01, 2020 16:07
[2020-06-01 16:08] VITALS: BP 121/64
[2020-06-01] MEDS: traZODone 100 MG TAB PO SCH (20:29)
[2020-06-01] MEDS: OLANZapine 5 MG TAB PO SCH (20:29)
[2020-06-01] MEDS: PARoxetine 10MG TABLET PO SCH (20:30)
[2020-06-02 06:31] VITALS: BP 112/72
--- NOTE | 2020-06-02 09:08 | MHIPNPDOC ---
[facility] Progress Note Progress Note DATE OF SERVICE: 06/02/20 Subjective HPI: The patient was met with today. He was sleeping but had been engaged more today than previous. The patient otherwise did not engage with much but reported that he was feeling better and had been resting as he's been coming off various drugs. The patient otherwise was engaged without any major problems. Objective Appearance: Well nourished. Well groomed. Appears to be stated age. Behavior: Cooperative with good eye contact. Pleasant. Engaged. Affect: Full range. Appropriate to context. Mood: Generally good. Appropriately reactive. Euthymic. Speech: Normal rate. Spontaneous and Fluid. Normal volume. Motor: No gross motor abnormalities. Cognition: Alert, Attentive, and Oriented to person, place, time. Memory: No gross abnormalities of short or care home memory noted during interview. No formal testing. Thought Form: Linear and goal directed. Thought Content: No evidence of suicidal ideation. No thoughts of self harm. No evidence of delusions. No evidence of aggressive or homicidal ideation. Perception: No perceptual abnormalities noted. Judgement: Intact as evidenced by decision making in the recent past. Insight: Good insight into symptoms and treatment options. 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 Reported history of bipolar but unconfirmed. Likely discharge on Sunday after observation, making good progress. Vital Signs Vital Signs Date Time Temp Pulse Resp B/P (MAP) Pulse Ox O2 Delivery O2 Flow Rate FiO2 06/02/20 06:31 98.0 58 16 112/72 (85) 06/01/20 06:34 Room Air 05/31/20 17:23 95 Current Medications Current Medications Medications (Trade) Dose Ordered Sig/Dom Route PRN Reason Start Time Stop Time Status Last Admin Dose Admin Acetaminophen (Tylenol Tab) 650 mg Q6HP PRN PO HEADACHE or DISCOMFORT 05/31/20 15:30 Al Hydrox/Mg Hydrox/Simethicone (Mylanta) 30 ml Q4HP PRN PO HEARTBURN/INDIGESTION 05/31/20 15:30 Buprenorphine/ Naloxone (Suboxone 8/2mg) 1 tab DAILY SL 05/31/20 09:00 05/31/20 18:39 DC 05/31/20 09:30 Buprenorphine/ Naloxone (Suboxone 8/2mg) 1 tab DAILY SL 06/01/20 09:00 06/01/20 09:27 Home Med (Med Rec Complete!) ASDIRECTED XX 05/31/20 02:00 05/31/20 15:41 DC Hydroxyzine HCl (Atarax) 50 mg Q6HP PRN PO ANXIETY/AGITATION 05/31/20 15:30 Lamotrigine (LaMICtal) 100 mg DAILY PO 05/31/20 09:00 05/31/20 15:40 DC 05/31/20 09:30 Lamotrigine (LaMICtal) 100 mg DAILY PO 06/01/20 09:00 06/01/20 09:28 Magnesium Hydroxide (Milk Of Magnesia) 30 ml DAILYPRN PRN PO CONSTIPATION 05/31/20 15:30 Olanzapine (ZyPREXA) 5 mg DAILY PO 05/31/20 09:00 05/31/20 15:40 DC 05/31/20 09:30 Olanzapine (ZyPREXA) 5 mg QHS PO 05/31/20 21:00 06/01/20 20:29 Paroxetine HCl (PAXil) 10 mg DAILY PO 05/31/20 09:00 05/31/20 15:39 DC 05/31/20 09:30 Paroxetine HCl (PAXil) 10 mg QHS PO 06/01/20 21:00 06/01/20 20:30 Trazodone HCl (Desyrel) 100 mg QHS PO 05/31/20 21:00 05/31/20 15:39 DC Trazodone HCl (Desyrel) 100 mg QHS PO 05/31/20 21:00 06/01/20 20:29 Allergies Coded Allergies: No Known Allergies (Unverified , 12/09/18) ARIADNE QUIROS DO Jun 02, 2020 09:08
[2020-06-02] MEDS: BUPRENORPHINE/NALOXONE 8-2MG SUBLINGUAL TABLET(SUBOXONE) SL SCH (09:31)
[2020-06-02] MEDS: lamoTRIgine 100MG TAB PO SCH (09:31)
[2020-06-02 16:03] VITALS: BP 132/70
[2020-06-02] MEDS: traZODone 100 MG TAB PO SCH (20:07)
[2020-06-02] MEDS: OLANZapine 5 MG TAB PO SCH (20:07)
[2020-06-02] MEDS: PARoxetine 10MG TABLET PO SCH (20:07)
[2020-06-03 06:23] VITALS: BP 133/86
[2020-06-03] MEDS: BUPRENORPHINE/NALOXONE 8-2MG SUBLINGUAL TABLET(SUBOXONE) SL SCH (09:14)
[2020-06-03] MEDS: lamoTRIgine 100MG TAB PO SCH (09:14)
--- NOTE | 2020-06-03 10:43 | MHIPNPDOC ---
[facility] Progress Note Progress Note DATE OF SERVICE: 06/03/20 Subjective HPI: Nakul presents today for concerns regarding his psych issues. Patients met with today reports. He's doing well. He's been going to groups. Much more engaged. Otherwise, doing well. Denies any rashes. MEDICATIONS: Reports that hes having no side effects due to medications. Objective Appearance: Appears to be stated age. Well nourished. Well groomed. Behavior: Engaged. Cooperative with good eye contact. Pleasant. Affect: Full range. Appropriate to context. Mood: Appropriately reactive. Generally good. Euthymic. Speech: Normal volume. Spontaneous and Fluid. Normal rate. Motor: No gross motor abnormalities. Cognition: Alert, Attentive, and Oriented to person, place, time. Memory: No formal testing. No gross abnormalities of short or jail memory n oted during interview. Thought Form: Linear and goal directed. Thought Content: No evidence of aggressive or homicidal ideation. No evidence of delusions. No thoughts of self harm. No evidence of suicidal ideation. Perception: No perceptual abnormalities noted. Judgement: Intact as evidenced by decision making in the recent past. Insight: Good insight into symptoms and treatment options. Assessment F31.89 Other bipolar disorder F15.20 Other stimulant dependence, uncomplicated Plan Continue Paxil, Lamictal and Zyprexa at this time. Plan for discharged tomorrow, if patient continues to remain safe and in behavioral control. Vital Signs Vital Signs Date Time Temp Pulse Resp B/P (MAP) Pulse Ox O2 Delivery O2 Flow Rate FiO2 06/03/20 06:23 97.7 50 18 133/86 (102) 06/01/20 06:34 Room Air 05/31/20 17:23 95 Current Medications Current Medications Medications (Trade) Dose Ordered Sig/Dom Route PRN Reason Start Time Stop Time Status Last Admin Dose Admin Acetaminophen (Tylenol Tab) 650 mg Q6HP PRN PO HEADACHE or DISCOMFORT 05/31/20 15:30 Al Hydrox/Mg Hydrox/Simethicone (Mylanta) 30 ml Q4HP PRN PO HEARTBURN/INDIGESTION 05/31/20 15:30 Buprenorphine/ Naloxone (Suboxone 8/2mg) 1 tab DAILY SL 05/31/20 09:00 05/31/20 18:39 DC 05/31/20 09:30 Buprenorphine/ Naloxone (Suboxone 8/2mg) 1 tab DAILY SL 06/01/20 09:00 06/03/20 09:14 Home Med (Med Rec Complete!) ASDIRECTED XX 05/31/20 02:00 05/31/20 15:41 DC Hydroxyzine HCl (Atarax) 50 mg Q6HP PRN PO ANXIETY/AGITATION 05/31/20 15:30 Lamotrigine (LaMICtal) 100 mg DAILY PO 05/31/20 09:00 05/31/20 15:40 DC 05/31/20 09:30 Lamotrigine (LaMICtal) 100 mg DAILY PO 06/01/20 09:00 06/03/20 09:14 Magnesium Hydroxide (Milk Of Magnesia) 30 ml DAILYPRN PRN PO CONSTIPATION 05/31/20 15:30 Olanzapine (ZyPREXA) 5 mg DAILY PO 05/31/20 09:00 05/31/20 15:40 DC 05/31/20 09:30 Olanzapine (ZyPREXA) 5 mg QHS PO 05/31/20 21:00 06/02/20 20:07 Paroxetine HCl (PAXil) 10 mg DAILY PO 05/31/20 09:00 05/31/20 15:39 DC 05/31/20 09:30 Paroxetine HCl (PAXil) 10 mg QHS PO 06/01/20 21:00 06/02/20 20:07 Trazodone HCl (Desyrel) 100 mg QHS PO 05/31/20 21:00 05/31/20 15:39 DC Trazodone HCl (Desyrel) 100 mg QHS PO 05/31/20 21:00 06/02/20 20:07 Allergies Coded Allergies: No Known Allergies (Unverified , 12/09/18) ARIADNE QUIROS DO Jun 03, 2020 10:43
[2020-06-03 18:49] VITALS: BP 123/79
[2020-06-03] MEDS: PARoxetine 10MG TABLET PO SCH (20:02)
[2020-06-03] MEDS: OLANZapine 5 MG TAB PO SCH (20:02)
[2020-06-03] MEDS: traZODone 100 MG TAB PO SCH (20:02)
[2020-06-04 06:55] VITALS: BP 113/59
[2020-06-04] MEDS: BUPRENORPHINE/NALOXONE 8-2MG SUBLINGUAL TABLET(SUBOXONE) SL SCH (08:34)
[2020-06-04] MEDS: lamoTRIgine 100MG TAB PO SCH (08:34)
[2020-06-04] MEDS ORDERED: PAXI10TA12 PO (10:51)
[2020-06-04] MEDS ORDERED: LAMI1TAB7 PO (10:51)
[2020-06-04] MEDS ORDERED: HYDR50TA70 PO (10:51)
[2020-06-04] MEDS ORDERED: OLAN5TAB PO (10:51)
[2020-06-04] MEDS ORDERED: TRAZ-257 PO (10:51)
--- NOTE | 2020-06-04 10:55 | MHDSPDOC ---
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 His behavior was well controlled, and he was converted to voluntary, observed for several days and made good progress. He became more engaged and was more active. He generally stayed in his room and slept quite a bit but became much more engaged, energetic, and interactive as he improved. MEDICATIONS: He was replaced on these medications without any issues no rashes or other side effects were observed. MEDICAL HISTORY: He has a long history of drug use he was started on home medication of Paxil, Lamictal, and Zyprexa. He reportedly had a diagnosis of bipolar disorder. DISCHARGE ASSESSMENT[improved][stable][unchanged] Legal status considerations: The patient at the time of discharge did not meet criteria for involuntary admission/extension due to having a [normal] mental status exam, [fair] insight into the situation, They are engaged in the discharge process, as well as being friendly and amenable in behavioral control and havent been engaging in any observed concerning behavior or ideation recently. They decline voluntary extension/admission at this time and must be discharged in good kim, as Im unable to make a case for holding the patient against their will. They may have historical risk factors of admissions and other interactions with psychiatry however, those are not modifiable from a clinical perspective. The patient will need to be discharged in good kim. MENTAL STATUS EXAMINATION ON DISCHARGE: [General: Well dressed with good hygiene Speech: Spontaneous and fluid Thought processes: Linear and logical Thought content: Future orientated Abstract reasoning, and computation: Intact Description of associations: Intact Description of abnormal or psychotic thoughts:Denies any suicidal or homicidal ideation. Denies any auditory or visual hallucinations. Does not appear to be responding to internal stimuli. Does not appear to be endorsing any bizarre or paranoid ideation. Judgment: fair Insight: fair Orientation: Alert and orientated 3 Recent and remote memory: Intact Attention span and concentration: Intact Fund of knowledge: Adequate Mood: "okay" Affect: Euthymic with a full range] PLAN/FOLLOWUP ARRANGEMENTS: Follow up appointments made (PCP and MH in 5 days of D/C date) and safety plan completed. Safety Planning aspects completed prior to discharge [Medication supplies limited to 7 days with 4 refills to prevent accumulation to OD] [RN reviewed crisis hotline information and other aspects to empower patient to access care in interim before next appointment.] The amount of time spent in the coordination of care for this patient was approximately 30 minutes. Vital Signs/I&Os Vital Signs Date Time Temp Pulse Resp B/P (MAP) Pulse Ox O2 Delivery O2 Flow Rate FiO2 06/04/20 06:55 99.1 64 14 113/59 (77) 98 Room Air Medications Scheduled Buprenorphine HCl/Naloxone HCl (Suboxone 8 mg-2 mg Sl Film) 1 Each Film, 1 STRIP SL DAILY, (Reported) Lamotrigine (Lamictal) 100 Mg Tablet, 100 MG PO DAILY for mood for 7 Days, #7 Olanzapine (Olanzapine) 5 Mg Tablet, 5 MG PO QHS for mood for 7 Days, #7 Paroxetine HCl (Paxil) 10 Mg Tablet, 10 MG PO QHS for mood for 7 Days, #7 Scheduled PRN Hydroxyzine HCl (Hydroxyzine HCl) 50 Mg Tablet, 50 MG PO QHS PRN for SLEEP for 7 Days, #7 Trazodone HCl (Trazodone HCl) 100 Mg Tablet, 100 MG PO QHS PRN for SLEEP for 7 Days, #7 Allergies Coded Allergies: No Known Allergies (Unverified , 12/09/18) ARIADNE QUIROS DO Jun 04, 2020 10:55
== END 2020-06-04 12:15 | disposition home or self-care (01) | DRG 753 ==
LOC: M ED 17:13 → M ED INP 05-31 15:26 → M PSY 05-31 17:20
PROVIDERS: ADMIT Psychiatry & Neurology Addiction Medicine; ATTEND Psychiatry & Neurology Addiction Medicine
DX: F31.89 Other bipolar disorder (principal); F15.20 Other stimulant dependence, uncomplicated; Z91.14 Patient's other noncompliance with medication regimen; F17.200 Nicotine dependence, unspecified, uncomplicated; F16.20 Hallucinogen dependence, uncomplicated; Z79.899 Other long term (current) drug therapy

== ENCOUNTER 2020-07-12 12:44 | Inpatient (IN) | payer OTHER ==
[~2020-07-12] VITALS: Ht 185.4 cm; Wt 94.0 kg
[~2020-07-12 12:44] MED LIST changes: +HYDR50TA70 PO; +TRAZ-257 PO; +med rec comment
[2020-07-12 14:24] LABS: HEMATOCRIT 44.1 % (42.0-52.0); HEMOGLOBIN 14.5 g/dl (13.5-17.5); MEAN CORPUSCULAR HEMOGLOBIN 29.6 pg (27.0-33.0); MEAN CORPUSCULAR HGB CONC 32.9 g/dl (32.0-36.5); PLATELET COUNT, AUTOMATED 275 10^3/uL (150-450); WHITE BLOOD COUNT 10.2 10^3/uL (4.0-10.0)
[2020-07-12 14:50] LABS: AMPHETAMINES LEVEL URINE POSITIVE (NEGATIVE); BARBITURATES URINE NEGATIVE (NEGATIVE); BENZODIAZEPINES URINE NEGATIVE (NEGATIVE); CANNABINOIDS URINE POSITIVE (NEGATIVE); COCAINE METABOLITE URINE NEGATIVE (NEGATIVE); METHADONE URINE NEGATIVE (NEGATIVE); OPIATES URINE NEGATIVE (NEGATIVE); PHENCYCLIDINE URINE NEGATIVE (NEGATIVE)
[2020-07-12 15:00] LABS: ACETAMINOPHEN LEVEL < 2.0 UG/ML (10.0-30.0); ALBUMIN 3.8 GM/DL (3.2-5.2); ALT/SGPT 32 U/L (12-78); BILIRUBIN,DIRECT 0.2 MG/DL (0.0-0.2); BILIRUBIN,TOTAL 0.4 MG/DL (0.2-1.0); BLOOD UREA NITROGEN 18 MG/DL (7-18); CALCIUM LEVEL 9.1 MG/DL (8.5-10.1); CARBON DIOXIDE LEVEL 28 MEQ/L (21-32); CHLORIDE LEVEL 108 MEQ/L (98-107); CREATININE FOR GFR 1.17 MG/DL (0.70-1.30); ETHYL ALCOHOL (ETHANOL) < 0.003 % (0.000-0.010); GLOMERULAR FILTRATION RATE > 60.0 (>60); GLUCOSE, FASTING 98 MG/DL (70-100); POTASSIUM SERUM 4.7 MEQ/L (3.5-5.1); SALICYLATE LEVEL 2.2 MG/DL (5.0-30.0); SODIUM LEVEL 141 MEQ/L (136-145); TOTAL PROTEIN 7.1 GM/DL (6.4-8.2)
[2020-07-12] MEDS ORDERED: TRAZ-189 PO (15:15)
[2020-07-12] MEDS ORDERED: OLAN5TAB PO (15:15)
[2020-07-12] MEDS ORDERED: PARO5TAB PO (15:15)
[2020-07-12] MEDS ORDERED: HYDR50TA70 PO (15:15)
[2020-07-12] MEDS ORDERED: LAMO100T3 PO (15:15)
[2020-07-12] MEDS ORDERED: SUBO8MIS SL (15:24)
[2020-07-12] MEDS ORDERED: ACETAMINOPHEN TAB 650MG DOSE (2X325MG) PO PRN (18:00)
[2020-07-12] MEDS ORDERED: traZODone 50 MG TAB PO PRN (18:00)
[2020-07-12] MEDS ORDERED: MAALOX 30 ML SUSP *UDC PO PRN (18:00)
[2020-07-12] MEDS ORDERED: MOM 30ML SUSPENSION UDC PO PRN (18:00)
[2020-07-12] MEDS: PALIPERIDONE 3 MG ER TAB (INVEGA) PO SCH (21:00)
[2020-07-12 22:06] VITALS: BP 141/90
[2020-07-12] MEDS: PARoxetine 10MG TABLET PO SCH (22:55)
[2020-07-12] MEDS: OLANZapine 5 MG TAB PO SCH (22:55)
[2020-07-13 06:42] VITALS: BP 117/69
[2020-07-13] MEDS: PALIPERIDONE 3 MG ER TAB (INVEGA) PO SCH ×3 (09:00→21:43)
[2020-07-13] MEDS ORDERED: INFLUENZA QUADRIVALENT PF VACCINE 0.5ML SYRINGE IM ONE (09:00)
[2020-07-13] MEDS: lamoTRIgine 100MG TAB PO SCH (09:33)
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
[2020-07-13] MEDS ORDERED: BUPRENORPHINE/NALOXONE 8-2MG SUBLINGUAL TABLET(SUBOXONE) SL ONE (15:30)
[2020-07-13 16:37] VITALS: BP 129/90
--- NOTE | 2020-07-13 18:22 | HPEPDOC ---
[facility] Medical History & Physical Date of Admission Jul 12, 2020 Date of Service: Jul 13, 2020 History and Physical CHIEF COMPLAINT: Auditory and visual hallucinations HISTORY OF PRESENT ILLNESS: Patient presents today [facility] for auditory and visual hallucinations. Admitted to [facility]. Patient was seen and examined in examination room. He voices no new medical complaints. He denies chest pain, shortness of breath, headaches, nausea, vomiting, diarrhea, abdominal pain. PAST MEDICAL HISTORY: Denies ALLERGIES: Please see below. REVIEW OF SYSTEMS: Negative except as per HPI. HOME MEDICATIONS: Please see below. PHYSICAL EXAMINATION: VITAL SIGNS: See below. GENERAL APPEARANCE: NAD, sitting comfortably in chair HEENT: NC/AT, EOMI, PERRL Lungs: CTA B/L Heart: +S1S2, RRR Abdomen: soft, NT, +BS Ext: no edema LABORATORY DATA: See below. MICROBIOLOGY: Please see below. A/P: 44 yo male admitted to [facility] for auditory/visual hallucinations, denies any past medical history. #SI - as per primary team Thank you for this consultation. Please re-consult as needed. Vital Signs Vital Signs Date Time Temp Pulse Resp B/P (MAP) Pulse Ox O2 Delivery O2 Flow Rate FiO2 07/13/20 16:37 97.9 88 16 129/90 (103) 07/12/20 22:06 100 Room Air Home Medications Scheduled Buprenorphine HCl/Naloxone HCl (Suboxone 8 mg-2 mg Sl Film) 1 Each Film, 1 STRIP SL DAILY Lamotrigine (Lamotrigine) 100 Mg Tablet, 100 MG PO DAILY Olanzapine (Olanzapine) 5 Mg Tablet, 5 MG PO QHS Paroxetine (Paroxetine HCl) 10 Mg Tablet, 10 MG PO QHS Scheduled PRN Hydroxyzine HCl (Hydroxyzine HCl) 50 Mg Tablet, 50 MG PO QHS PRN for ANXIETY Trazodone HCl (Trazodone HCl) 100 Mg Tablet, 100 MG PO QHS PRN for SLEEP Allergies Coded Allergies: No Known Allergies (Unverified , 12/09/18) A-FIB/CHADSVASC A-FIB History Current/History of A-Fib/PAF?: No MADDY ORDOÑEZ MD Jul 13, 2020 18:22
[2020-07-13] MEDS: OLANZapine 5 MG TAB PO SCH (20:35)
[2020-07-13] MEDS: hydrOXYzine 50 MG TAB PO PRN (20:35)
[2020-07-13] MEDS: PARoxetine 10MG TABLET PO SCH (21:43)
[2020-07-14 07:17] VITALS: BP 141/69
[2020-07-14] MEDS: lamoTRIgine 100MG TAB PO SCH (09:42)
[2020-07-14] MEDS: PALIPERIDONE 3 MG ER TAB (INVEGA) PO SCH ×2 (09:42→21:25)
[2020-07-14] MEDS: BUPRENORPHINE/NALOXONE 8-2MG SUBLINGUAL TABLET(SUBOXONE) SL SCH (09:42)
--- NOTE | 2020-07-14 10:46 | MHIPNPDOC ---
[facility] Progress Note Progress Note DATE OF SERVICE: 07/14/20 Subjective HPI: The patient I met with today. He reports he is feeling much better. He's been in his room and isolated, but otherwise has been pleasant upon approach. He reports he's feeling better, and he's open to the injectable. His insight and judgment seem to be quite improved, and he realizes that he might not take his medication and is open to the injection. He placed in a request for a court hearing of which we would have to wait until tomorrow to answer. Objective Appearance: Appears to be stated age. Well nourished. Well groomed. Behavior: Engaged. Pleasant. Cooperative with good eye contact. Affect: Appropriate to context. Full range. Mood: Appropriately reactive. Generally good. Euthymic. Speech: Normal volume. Normal rate. Spontaneous and Fluid. Motor: No gross motor abnormalities. Cognition: Alert, Attentive, and Oriented to person, place, time. Memory: No gross abnormalities of short or care home memory noted during interview. No formal testing. Thought Form: Linear and goal directed. Thought Content: No evidence of suicidal ideation. No evidence of delusions. No evidence of aggressive or homicidal ideation. No thoughts of self harm. Perception: No perceptual abnormalities noted. Judgement: Intact as evidenced by decision making in the recent past. Insight: Good insight into symptoms and treatment options. 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 Will likely need to continue on the oral medication for some time unless he gets second shot. Will attempt to arrange this, however given that he is fairly engaged without any signs of significant danger, I will be unable to hold him. Well arrange for his release tomorrow. Vital Signs Vital Signs Date Time Temp Pulse Resp B/P (MAP) Pulse Ox O2 Delivery O2 Flow Rate FiO2 07/14/20 07:17 98.0 61 16 141/69 (93) 07/12/20 22:06 100 Room Air Current Medications Current Medications Medications (Trade) Dose Ordered Sig/Dom Route PRN Reason Start Time Stop Time Status Last Admin Dose Admin Acetaminophen (Tylenol Tab) 650 mg Q6HP PRN PO HEADACHE or DISCOMFORT 07/12/20 18:00 Al Hydrox/Mg Hydrox/Simethicone (Mylanta) 30 ml Q4HP PRN PO HEARTBURN/INDIGESTION 07/12/20 18:00 Buprenorphine/ Naloxone (Suboxone 8/2mg) 1 tab DAILY SL 07/14/20 09:00 07/14/20 09:42 Home Med (Med Rec Complete!) ASDIRECTED XX 07/12/20 15:30 07/12/20 15:26 DC Hydroxyzine HCl (Atarax) 50 mg QHS PRN PO ANXIETY 07/12/20 18:00 07/13/20 20:35 Lamotrigine (LaMICtal) 100 mg DAILY PO 07/13/20 09:00 07/14/20 09:42 Magnesium Hydroxide (Milk Of Magnesia) 30 ml DAILYPRN PRN PO CONSTIPATION 07/12/20 18:00 Olanzapine (ZyPREXA) 5 mg QHS PO 07/12/20 21:00 07/13/20 20:35 Paliperidone (Invega) 3 mg BID PO 07/12/20 21:00 07/14/20 09:42 Paroxetine HCl (PAXil) 10 mg QHS PO 07/12/20 21:00 07/13/20 21:43 Trazodone HCl (Desyrel) 100 mg QHSP PRN PO INSOMNIA 07/12/20 18:00 Allergies Coded Allergies: No Known Allergies (Unverified , 12/09/18) ARIADNE QUIROS DO Jul 14, 2020 10:46
[2020-07-14] MEDS ORDERED: PALIPERIDONE PALMITATE 234MG/1.5ML INJ (INVEGA)(FREE PSY INPT ONLY) IM ONE (16:15)
[2020-07-14 16:51] VITALS: BP 102/56
[2020-07-14] MEDS: hydrOXYzine 50 MG TAB PO PRN (21:25)
[2020-07-14] MEDS: PARoxetine 10MG TABLET PO SCH (21:25)
[2020-07-14] MEDS: OLANZapine 5 MG TAB PO SCH (21:25)
[2020-07-15] MEDS: lamoTRIgine 100MG TAB PO SCH (10:14)
[2020-07-15] MEDS: BUPRENORPHINE/NALOXONE 8-2MG SUBLINGUAL TABLET(SUBOXONE) SL SCH (10:14)
[2020-07-15] MEDS: PALIPERIDONE 3 MG ER TAB (INVEGA) PO SCH (10:14)
--- NOTE | 2020-07-15 11:17 | MHDSPDOC ---
[facility] Discharge Summary Discharge Summary DATE OF ADMISSION: Jul 12, 2020 at 17:55 DATE OF DISCHARGE: Jul 15, 2020 at 12:30 DISCHARGE DIAGNOSES: F29 Unspecified psychosis not due to a substance or known physiological condition F15.20 Other stimulant dependence, uncomplicated F19.10 Other psychoactive substance abuse, uncomplicated CONSULTANTS INVOLVED:[ None (basic hospitalist screening)] REASON FOR ADMISSION & TREATMENT AND PROGRESS ON THE UNIT : The patient was admitted to the inpatient mental health unit, he was psychotic and somewhat paranoid. He reported the voices had improved and had vanished over time without any significant problems. He was very interested in discharge when I started working with him. However, he put in a court hearing retained him up until the point when we would have to answer. He did do well and made good improvement and was amenable to having the injectable of the Invega given which he received a loading dose. The patient otherwise did not engage in any concerning behavior, he was unusual sometimes and somewhat pressured, but he improved quite well by the end that I could not make an argument that he needed to be detained against his will and would be unlikely to win a retention a rgument at this time. MEDICATIONS: He was started on Paxil and other medications, the on-call started him on Invega 3 mg BID of which he did quite well, he improved and became much less pressured in speech and paranoid. DISCHARGE ASSESSMENT[improved] Legal status considerations: The patient at the time of discharge did not meet criteria for involuntary admission/extension due to having a improved mental status exam, improved insight into the situation, They are engaged in the discharge process, as well as being friendly and amenable in behavioral control and havent been engaging in any observed concerning behavior or ideation recently. They decline voluntary extension/admission at this time and must be discharged in good kim, as Im unable to make a case for holding the patient against their will. They may have historical risk factors of admissions and other interactions with psychiatry however, those are not modifiable from a clinical perspective. The patient will need to be discharged in good kim. MENTAL STATUS EXAMINATION ON DISCHARGE: General: [Well dressed with good hygiene] Speech: more fluid Thought processes:, more focused Thought content: [Future orientated] Abstract reasoning, and computation: [Intact] Description of associations: [Intact] Description of abnormal or psychotic thoughts:[Denies any suicidal or homicidal ideation. Denies any auditory or visual hallucinations. Does not appear to be responding to internal stimuli. Does not appear to be endorsing any bizarre or paranoid ideation.] Judgment: improved Insight: improved Orientation: [Alert and orientated 3] Recent and remote memory: [Intact] Attention span and concentration: [Intact] Fund of knowledge: [Adequate] Mood: ["okay"] Affect: [Euthymic with a full range] PLAN/FOLLOWUP ARRANGEMENTS: Follow up appointments made (PCP and MH in 5 days of D/C date) and safety plan completed. Safety Planning aspects completed prior to discharge [Medication supplies limited to 7 days with 4 refills to prevent accumulation to OD] [Family contact completed, educated on safe practices, instructed on removal and mitigation of dangerous means] [RN reviewed crisis hotline information and other aspects to empower patient to access care in interim before next appointment.] Use of injectable antipsychotics to improve compliance The amount of time spent in the coordination of care for this patient was approximately 30 minutes. Vital Signs/I&Os Vital Signs Date Time Temp Pulse Resp B/P (MAP) Pulse Ox O2 Delivery O2 Flow Rate FiO2 07/14/20 16:51 98.7 72 16 102/56 (71) 07/12/20 22:06 100 Room Air Medications Scheduled Lamotrigine (Lamotrigine) 100 Mg Tablet, 100 MG PO DAILY, (Reported) Olanzapine (Olanzapine) 5 Mg Tablet, 5 MG PO QHS, (Reported) Paliperidone (Invega) 6 Mg Tab.er.24, 1 TAB PO QAM for thought for 7 Days, #7 Paliperidone Palmitate (Invega Sustenna) 156 Mg/1 Ml Syringe, 1 SYRINGE IM Q30D for thoughts for 30 Days, #1 will need injection with in 1 week, then monthly after Paroxetine (Paroxetine HCl) 10 Mg Tablet, 10 MG PO QHS, (Reported) Scheduled PRN Hydroxyzine HCl (Hydroxyzine HCl) 50 Mg Tablet, 50 MG PO QHS PRN for ANXIETY, (Reported) Trazodone HCl (Trazodone HCl) 100 Mg Tablet, 100 MG PO QHS PRN for SLEEP, (Reported) Allergies Coded Allergies: No Known Allergies (Unverified , 12/09/18) ARIADNE QUIROS DO Jul 15, 2020 11:17
[2020-07-15] MEDS ORDERED: PALI1TAB2 PO (11:35)
[2020-07-15] MEDS ORDERED: INVE156I IM (11:35)
[2020-07-15] MEDS ORDERED: INVE6TAB3 PO (15:23)
== END 2020-07-15 12:30 | disposition home or self-care (01) | DRG 751 ==
LOC: M ED 12:44 → M ED INP 17:55 → M PSY 21:50
PROVIDERS: ADMIT Psychiatry & Neurology Psychiatry; ATTEND Psychiatry & Neurology Addiction Medicine
DX: F29 Unspecified psychosis not due to a substance or known physiological condition (principal); F15.20 Other stimulant dependence, uncomplicated; Z79.899 Other long term (current) drug therapy; F19.10 Other psychoactive substance abuse, uncomplicated

== ENCOUNTER 2020-07-16 18:34 | Emergency (ER) | payer OTHER ==
[~2020-07-16] VITALS: Ht 185.4 cm; Wt 97.7 kg
[~2020-07-16 18:34] MED LIST changes: +INVE156I IM; +INVE6TAB3 PO; +LAMO100T3 PO; +PALI1TAB2 PO; +PARO5TAB PO; +TRAZ-189 PO
[2020-07-16 18:40] VITALS: BP 121/85
[2020-07-16 19:35] LABS: HEMATOCRIT 43.6 % (42.0-52.0); HEMOGLOBIN 14.5 g/dl (13.5-17.5); MEAN CORPUSCULAR HGB CONC 33.3 g/dl (32.0-36.5); MEAN CORPUSCULAR VOLUME 90.1 fl (80.0-96.0); PLATELET COUNT, AUTOMATED 447 10^3/uL (150-450); RED BLOOD COUNT 4.84 10^6/uL (4.30-6.10); WHITE BLOOD COUNT 7.8 10^3/uL (4.0-10.0)
[2020-07-16 19:51] LABS: AMPHETAMINES LEVEL URINE NEGATIVE (NEGATIVE); BARBITURATES URINE NEGATIVE (NEGATIVE); BENZODIAZEPINES URINE NEGATIVE (NEGATIVE); CANNABINOIDS URINE POSITIVE (NEGATIVE); COCAINE METABOLITE URINE NEGATIVE (NEGATIVE); METHADONE URINE NEGATIVE (NEGATIVE); OPIATES URINE NEGATIVE (NEGATIVE); PHENCYCLIDINE URINE NEGATIVE (NEGATIVE)
[2020-07-16 20:07] LABS: ACETAMINOPHEN LEVEL < 2.0 UG/ML (10.0-30.0); ALBUMIN 3.9 GM/DL (3.2-5.2); ALT/SGPT 19 U/L (12-78); BILIRUBIN,DIRECT 0.2 MG/DL (0.0-0.2); BILIRUBIN,TOTAL 0.8 MG/DL (0.2-1.0); BLOOD UREA NITROGEN 16 MG/DL (7-18); CALCIUM LEVEL 9.4 MG/DL (8.5-10.1); CARBON DIOXIDE LEVEL 27 MEQ/L (21-32); CHLORIDE LEVEL 103 MEQ/L (98-107); ETHYL ALCOHOL (ETHANOL) < 0.003 % (0.000-0.010); GLOMERULAR FILTRATION RATE > 60.0 (>60); GLUCOSE, FASTING 101 MG/DL (70-100); POTASSIUM SERUM 4.6 MEQ/L (3.5-5.1); SALICYLATE LEVEL 2.1 MG/DL (5.0-30.0); SODIUM LEVEL 136 MEQ/L (136-145); TOTAL PROTEIN 7.1 GM/DL (6.4-8.2)
[2020-07-17] MEDS ORDERED: METAL LOCK LOOP XX ONE ×2 (04:36→07:21)
== END 2020-07-16 22:28 | disposition home or self-care (01) ==
LOC: M ED 18:34
DX: F43.0 Acute stress reaction (principal); F19.10 Other psychoactive substance abuse, uncomplicated; F32.9 Major depressive disorder, single episode, unspecified; F17.200 Nicotine dependence, unspecified, uncomplicated; Z79.899 Other long term (current) drug therapy
CPT/HCPCS: 36415; 80048; 80076; 80307; 84443; 85027; 99284; G0480

== ENCOUNTER 2020-08-18 20:31 | Emergency (ER) | payer OTHER ==
[~2020-08-18] VITALS: Ht 182.9 cm; Wt 100.6 kg
[2020-08-18 20:33] VITALS: BP 126/78
[2020-08-18] MEDS ORDERED: BUPREN-NALOX (20:45)
[2020-08-18] MEDS ORDERED: OLAN15TA PO (20:45)
[2020-08-18] MEDS ORDERED: TERB250T12 (20:45)
[2020-08-18 21:34] LABS: HEMOGLOBIN 13.9 g/dl (13.5-17.5); MEAN CORPUSCULAR HEMOGLOBIN 29.8 pg (27.0-33.0); MEAN CORPUSCULAR HGB CONC 33.1 g/dl (32.0-36.5); MEAN CORPUSCULAR VOLUME 90.1 fl (80.0-96.0); PLATELET COUNT, AUTOMATED 251 10^3/uL (150-450); RED BLOOD COUNT 4.66 10^6/uL (4.30-6.10)
[2020-08-18 22:31] LABS: ACETAMINOPHEN LEVEL < 2.0 UG/ML (10.0-30.0); ALBUMIN 3.6 GM/DL (3.2-5.2); ALT/SGPT 14 U/L (12-78); AMPHETAMINES LEVEL URINE POSITIVE (NEGATIVE); BARBITURATES URINE NEGATIVE (NEGATIVE); BENZODIAZEPINES URINE NEGATIVE (NEGATIVE); BILIRUBIN,DIRECT 0.1 MG/DL (0.0-0.2); BILIRUBIN,TOTAL 0.2 MG/DL (0.2-1.0); BLOOD UREA NITROGEN 13 MG/DL (7-18); CALCIUM LEVEL 9.5 MG/DL (8.5-10.1); CANNABINOIDS URINE POSITIVE (NEGATIVE); CARBON DIOXIDE LEVEL 30 MEQ/L (21-32); CHLORIDE LEVEL 104 MEQ/L (98-107); COCAINE METABOLITE URINE NEGATIVE (NEGATIVE); CREATININE FOR GFR 0.99 MG/DL (0.70-1.30); ETHYL ALCOHOL (ETHANOL) < 0.003 % (0.000-0.010); GLOMERULAR FILTRATION RATE > 60.0 (>60); GLUCOSE, FASTING 130 MG/DL (70-100); METHADONE URINE NEGATIVE (NEGATIVE); OPIATES URINE NEGATIVE (NEGATIVE); PHENCYCLIDINE URINE NEGATIVE (NEGATIVE); POTASSIUM SERUM 4.2 MEQ/L (3.5-5.1); SALICYLATE LEVEL 3.6 MG/DL (5.0-30.0); SODIUM LEVEL 138 MEQ/L (136-145); TOTAL PROTEIN 6.9 GM/DL (6.4-8.2)
== END 2020-08-18 21:57 | disposition home or self-care (01) ==
LOC: M ED 20:31
DX: F32.9 Major depressive disorder, single episode, unspecified (principal); Z79.899 Other long term (current) drug therapy
CPT/HCPCS: 80048; 80076; 80307; 84443; 85027; 99284; G0480

== ENCOUNTER 2020-08-27 13:55 | Inpatient (IN) | payer OTHER ==
[~2020-08-27] VITALS: Ht 188 cm; Wt 97.8 kg
[~2020-08-27 13:55] MED LIST changes: +BUPREN-NALOX; +OLAN15TA PO; +TERB250T12 PO
[2020-08-27] MEDS ORDERED: FLUORESCEIN OPHTH 1 MG STRIP XX ONE (14:30)
[2020-08-27] MEDS ORDERED: BACIOIN23 OP (14:30)
[2020-08-27 15:26] LABS: HEMATOCRIT 47.2 % (42.0-52.0); HEMOGLOBIN 15.8 g/dl (13.5-17.5); MEAN CORPUSCULAR HEMOGLOBIN 30.6 pg (27.0-33.0); MEAN CORPUSCULAR HGB CONC 33.5 g/dl (32.0-36.5); MEAN CORPUSCULAR VOLUME 91.5 fl (80.0-96.0); PLATELET COUNT, AUTOMATED 278 10^3/uL (150-450); RED BLOOD COUNT 5.16 10^6/uL (4.30-6.10); WHITE BLOOD COUNT 11.3 10^3/uL (4.0-10.0)
[2020-08-27 15:51] LABS: AMPHETAMINES LEVEL URINE POSITIVE (NEGATIVE); BARBITURATES URINE NEGATIVE (NEGATIVE); BENZODIAZEPINES URINE NEGATIVE (NEGATIVE); CANNABINOIDS URINE POSITIVE (NEGATIVE); COCAINE METABOLITE URINE NEGATIVE (NEGATIVE); METHADONE URINE NEGATIVE (NEGATIVE); OPIATES URINE NEGATIVE (NEGATIVE); PHENCYCLIDINE URINE NEGATIVE (NEGATIVE)
[2020-08-27 16:03] LABS: ACETAMINOPHEN LEVEL < 2.0 UG/ML (10.0-30.0); ALBUMIN 3.9 GM/DL (3.2-5.2); ALT/SGPT 12 U/L (12-78); BILIRUBIN,DIRECT < 0.1 MG/DL (0.0-0.2); BILIRUBIN,TOTAL 0.3 MG/DL (0.2-1.0); BLOOD UREA NITROGEN 12 MG/DL (7-18); CARBON DIOXIDE LEVEL 27 MEQ/L (21-32); CHLORIDE LEVEL 109 MEQ/L (98-107); ETHYL ALCOHOL (ETHANOL) < 0.003 % (0.000-0.010); GLOMERULAR FILTRATION RATE > 60.0 (>60); GLUCOSE, FASTING 102 MG/DL (70-100); POTASSIUM SERUM 4.6 MEQ/L (3.5-5.1); SALICYLATE LEVEL 3.6 MG/DL (5.0-30.0); SODIUM LEVEL 143 MEQ/L (136-145); TOTAL PROTEIN 7.4 GM/DL (6.4-8.2)
[2020-08-27 16:06] LABS: RSV AMPLIFICATION NEGATIVE (NEGATIVE)
[2020-08-27] MEDS ORDERED: SUBO8MIS SL (16:23)
[2020-08-27] MEDS ORDERED: INVE156I IM (16:23)
[2020-08-27] MEDS ORDERED: traZODone 50 MG TAB PO PRN (17:00)
[2020-08-27] MEDS ORDERED: MOM 30ML SUSPENSION UDC PO PRN (17:00)
[2020-08-27] MEDS ORDERED: MAALOX 30 ML SUSP *UDC PO PRN (17:00)
[2020-08-27] MEDS ORDERED: ACETAMINOPHEN TAB 650MG DOSE (2X325MG) PO PRN (17:00)
[2020-08-28 06:27] VITALS: BP 134/88
[2020-08-28] MEDS ORDERED: hydrOXYzine 50 MG TAB PO PRN (12:00)
[2020-08-28] MEDS: lamoTRIgine 100MG TAB PO SCH (12:29)
[2020-08-28] MEDS: BUPRENORPHINE/NALOXONE 8-2MG SUBLINGUAL TABLET(SUBOXONE) SL SCH (12:29)
--- NOTE | 2020-08-28 14:23 | WAPSY-INT ---
[facility] PSYCH INITIAL ASSESSMENT DATE OF ADMISSION: 08/27/2020 VITAL SIGNS: Blood pressure 134/88, pulse 71, temperature 98.3. CHIEF COMPLAINT: Feels depressed. SUBJECTIVE: He is 44 years old, single. Stays with his girlfriend They have been together for about 5 years. He has a son, whom he says is 18. Has not been seen for a long time. The patient has had several hospitalizations here, diagnosed with a psychotic disorder. Attends outpatient care at [facility], both for substance abuse as well as mental health. Is on Lamictal at 100 mg daily, paroxetine 10 mg daily, olanzapine 7.5 mg at bedtime, which he says was started this week at outpatient, just over a week ago. Is also on Suboxone 04/04. Takes it sublingually, one strip, and Invega Sustenna 156 mg intramuscular. Gets it every month. Last received it 08/25/2020. He was at the hospital, inpatient unit, recently. Was, in fact, discharged just over a month ago. Was admitted on July 12, discharged July 15. Diagnosis was unspecified psychosis, possibly due to substance abuse, but apparently he has had psychotic symptoms, paranoia, auditory hallucinations, even without drugs. Those somewhat unclear. Please refer to previous summaries for details, including the discharge summary at his last admission, when he was seen by Dr. Lujan. Says has been feeling increasingly depressed, restless, anxious. Feels the voices have gone up. He is to quite sure how many there are. No command hallucinations. Has felt increasingly uncomfortable. Paranoid that others are out to get him, though vague on this. Has had concerns that his condition is going to deteriorate. Says has used Solange and methamphetamines. Used the "Solange" intravenously. Has also used cannabis. Toxicology was positive for both. Says the voices may have gone up upon use of the methamphetamine earlier in the month. Indicates takes his medicines. Says his girlfriend had noticed the deterioration in his condition as well. Is somewhat vague about this. PAST PSYCHIATRIC HISTORY: As indicated above. Has had several hospitalizations here. Most recent was last month, as stated previously. PAST MEDICAL HISTORY: Please refer to previous summaries. There is some history of chronic back pain. SOCIAL HISTORY: Stays with is girlfriend. Says his mother is in the area. They see each other once every week or so. MENTAL STATUS EXAMINATION: He is neat. He is cooperative, though a bit guarded initially. No agitation. No psychomotor retardation. No abnormal movements noted. Answers questions logically, coherently, but somewhat briefly. Affect is restricted in range. Denies any active suicidal thoughts or intents. No homicidal ideas or intents. Does not appear to be internally preoccupied. His cognition is grossly intact. Judgment is questionable, though fair in that he came to the hospital. Insight fair. ASSESSMENT: 1. Unspecified psychotic disorder (consider psychotic disorder secondary to substance abuse). 2. Rule out schizoaffective disorder. 3. Methamphetamine use disorder. 4. Cannabis use disorder. Patient has psychotic symptoms with paranoia, auditory hallucinations, though unclear if they are purely substance induced. They exacerbate when he uses a stimulant such as methamphetamines. PLAN: He is admitted to the inpatient psychiatry unit. Placed on relevant precautions. I would suggest that the olanzapine is increased to 10 mg at night to help with his current symptoms. I would not suggest any other change. He is to continue with his other medicines. We will look at obtaining collateral information. He will receive a medicine consult if indicated. He will be discharged with followup once he is stable. I anticipate a short stay. The assessment took 35 minutes.
[2020-08-28 16:52] VITALS: BP 119/76
[2020-08-28] MEDS: PARoxetine 10MG TABLET PO SCH (20:19)
[2020-08-28] MEDS: OLANZapine 10 MG TAB PO SCH (20:19)
[2020-08-28] MEDS ORDERED: OLANZapine 5 MG TAB PO SCH (21:00)
[2020-08-29 06:28] VITALS: BP 131/70
[2020-08-29] MEDS: lamoTRIgine 100MG TAB PO SCH (09:00)
[2020-08-29] MEDS: BUPRENORPHINE/NALOXONE 8-2MG SUBLINGUAL TABLET(SUBOXONE) SL SCH (09:00)
--- NOTE | 2020-08-29 19:57 | MHIPN ---
[facility] PROGRESS NOTE DATE: 08/29/2020 VITAL SIGNS: Blood pressure 131/70, pulse 73, temperature 97.8. CHIEF COMPLAINT: Says feels okay. SUBJECTIVE: Seen for followup, and this is in the presence of staff. Says feels okay, but is somewhat vague on this. Says he feels tired, particularly when he woke up today, and that he slept well. Has had contact with his mother, says that went well. Says continues to hear the voices, but they are possibly diminished. MENTAL STATUS EXAMINATION: He is sitting up in bed. He is neat, he is fairly cooperative, no agitation, no psychomotor retardation. Affect somewhat restricted in range. Denies any suicidal thoughts or intents at present. Does not appear to be internally preoccupied. Cognition is grossly intact, though he looks a bit tired. Judgment and insight fair. ASSESSMENT: Other specified psychotic disorder. Rule out schizoaffective disorder. Methamphetamine use disorder. Cannabis use disorder. Feels a bit better, but also more tired. PLAN: Continue olanzapine 10 mg at night, it was increased yesterday, and this may have resulted in the extra tiredness this morning. Continue the rest of the observations. Further recommendations will be made depending on the clinical picture, when he sees the assigned clinician tomorrow.
[2020-08-29] MEDS: OLANZapine 10 MG TAB PO SCH (20:09)
[2020-08-29] MEDS: PARoxetine 10MG TABLET PO SCH (20:09)
[2020-08-30 06:50] VITALS: BP 130/68
[2020-08-30] MEDS: BUPRENORPHINE/NALOXONE 8-2MG SUBLINGUAL TABLET(SUBOXONE) SL SCH (09:33)
[2020-08-30] MEDS: lamoTRIgine 100MG TAB PO SCH (09:33)
--- NOTE | 2020-08-30 10:15 | MHIPNPDOC ---
[facility] Progress Note Progress Note DATE OF SERVICE: 08/30/20 HISTORY: The patient is met with today, he reports he is doing well he feels good on the in [place], he reports he does the best when he has the oral date of th e supplement, he otherwise has no complaints feels the voices have improved well and wants to see about being discharged shortly. He is been well behaved isolative to room at times but otherwise has no major issues.. VITAL SIGNS: See below. NEW TEST RESULTS: EKG ordered, QTC within normal range. CURRENT MEDICATIONS: See below. MENTAL STATUS EXAMINATION: General: [Well dressed with good hygiene] Speech: [Spontaneous and fluid] Thought processes: [Linear and logical] Thought content: [Future orientated] Abstract reasoning, and computation: [Intact] Description of associations: [Intact] Description of abnormal or psychotic thoughts:[Denies any suicidal or homicidal ideation. Denies any auditory or visual hallucinations. Does not appear to be responding to internal stimuli. Does not appear to be endorsing any bizarre or paranoid ideation.] Judgment: [Fair] Insight: [Fair] Orientation: [Alert and orientated 3] Recent and remote memory: [Intact] Attention span and concentration: [Intact] Fund of knowledge: [Adequate] Mood: "Fine" Affect: [Euthymic with a full range] DIAGNOSES: 1. Unspecified psychotic disorder. 2. Methamphetamine/hallucinogen use disorder. ASSESSMENT: The patient will be observed overnight, will start all in [place] supplementation and then triaged for discharge as he is been doing well making progress reviewed notes from previous provider appears that substance is likely a recurring theme in his presentations MANAGEMENT PLAN: Start oral Invega 3 mg nightly, currently with [facility], however he could do well in residential but has continually refused. TIME SPENT: 15 minutes. Vital Signs Vital Signs Date Time Temp Pulse Resp B/P (MAP) Pulse Ox O2 Delivery O2 Flow Rate FiO2 08/30/20 06:50 97.7 65 16 130/68 (88) 95 Room Air Current Medications Current Medications Medications (Trade) Dose Ordered Sig/Dom Route PRN Reason Start Time Stop Time Status Last Admin Dose Admin Acetaminophen (Tylenol Tab) 650 mg Q6HP PRN PO HEADACHE or DISCOMFORT 08/27/20 17:00 Al Hydrox/Mg Hydrox/Simethicone (Mylanta) 30 ml Q4HP PRN PO HEARTBURN/INDIGESTION 08/27/20 17:00 Buprenorphine/ Naloxone (Suboxone 8/2mg) 1 tab DAILY SL 08/28/20 09:00 08/30/20 09:33 Home Med (Med Rec Complete!) ASDIRECTED XX 08/27/20 16:30 08/27/20 16:25 DC Hydroxyzine HCl (Atarax) 50 mg QHS PRN PO ANXIETY 08/28/20 12:00 Lamotrigine (LaMICtal) 100 mg DAILY PO 08/28/20 09:00 08/30/20 09:33 Magnesium Hydroxide (Milk Of Magnesia) 30 ml DAILYPRN PRN PO CONSTIPATION 08/27/20 17:00 Olanzapine (ZyPREXA) 7.5 mg QHS PO 08/28/20 21:00 08/28/20 11:58 DC Olanzapine (ZyPREXA) 10 mg QHS PO 08/28/20 21:00 08/29/20 20:09 Paroxetine HCl (PAXil) 10 mg QHS PO 08/28/20 21:00 08/29/20 20:09 Trazodone HCl (Desyrel) 50 mg QHSP PRN PO INSOMNIA 08/27/20 17:00 Allergies Coded Allergies: No Known Allergies (Unverified , 12/09/18) ARIADNE QUIROS DO Aug 30, 2020 10:15
--- NOTE | 2020-08-30 13:37 | HPEPDOC ---
[facility] Medical History & Physical Date of Admission Aug 30, 2020 Date of Service: Aug 30, 2020 History and Physical CHIEF COMPLAINT: Medical evaluation HISTORY OF PRESENT ILLNESS: 44-year-old female admitted to psychiatric unit for visual and auditory hallucinations I was asked to perform medical evaluation. Patient denies any active or chronic medical problems. feeling well. He has no complaints at this time. Denies any chest pain, shortness of breath, abdominal pain. Tells me he has regular bowel movements and makes urine regularly. I am asked to provide a medical assessment of patient admitted to the psychiatric unit. My assessment is limited to medical problems and does not address any psychiatric problems which is deferred to the in-house psychiatrist. PAST MEDICAL HISTORY: Denies any past medical problems PAST SURGICAL HISTORY: Right arm abscess drainage 2010 SOCIAL HISTORY: Denies alcohol use Endorses smoking half a pack of cigarettes per day declined nicotine patch Endorses amphetamine use as well as cannabis use. FAMILY HISTORY: Reviewed and noncontributory ALLERGIES: Please see below. REVIEW OF SYSTEMS: 10 point review of systems complete all negative otherwise stated in HPI HOME MEDICATIONS: Please see below. PHYSICAL EXAMINATION: Constitutional: Awake and alert, in no apparent distress ENT: Sclera are clear. Mucosa is moist. Respiratory: Lungs CTA bilaterally. Cardiovascular: RRR S1 and S2 are normal Gastrointestinal: Abdomen is soft, non distended, non tender Musculoskeletal: No lower extremity edema Neurologic: No focal neurological deficit. Mental Status: A&O x3, normal affect Skin: Warm, dry LABORATORY DATA: See below. MICROBIOLOGY: Please see below. ASSESSMENT/PLAN 44-year-old female admitted to psychiatric unit for visual and auditory hallucinations I was asked to perform medical evaluation. # Elevated blood pressure without diagnosis of hypertension: bp 143/86 but appears to have improved since. I recommended lifestyle modifications the patient and to follow-up with his primary care doctor after discharge. # Smoker: I counseled the patient to quit. I recommended nicotine patch which patient refused. # Visual/auditory hallucinations: Per psychiatry Vital Signs Vital Signs Date Time Temp Pulse Resp B/P (MAP) Pulse Ox O2 Delivery O2 Flow Rate FiO2 08/30/20 06:50 97.7 65 16 130/68 (88) 95 Room Air Home Medications Scheduled Bacitracin/Polymyxin B Sulfate (Bacitracin-Polymyxin Eye Oint) 3.5 Gm Oint...g., 1 APLCT OP BID Buprenorphine HCl/Naloxone HCl (Suboxone 8 mg-2 mg Sl Film) 1 Each Film, 1 STRIP SL DAILY UNABE TO VERIFY DOSE WITH [facility], CLOSED 08/27 Lamotrigine (Lamotrigine) 100 Mg Tablet, 100 MG PO DAILY Olanzapine (Olanzapine) 15 Mg Tablet, 7.5 MG PO QHS Paliperidone Palmitate (Invega Sustenna) 156 Mg/1 Ml Syringe, 156 MG IM QMONTH RECEIVES AT [facility] Paroxetine (Paroxetine HCl) 10 Mg Tablet, 10 MG PO QHS Terbinafine HCl (Terbinafine HCl) 250 Mg Tablet, 250 MG PO DAILY Scheduled PRN Hydroxyzine HCl (Hydroxyzine HCl) 50 Mg Tablet, 50 MG PO QHS PRN for ANXIETY Allergies Coded Allergies: No Known Allergies (Unverified , 12/09/18) A-FIB/CHADSVASC A-FIB History Current/History of A-Fib/PAF?: No PAWEL ZHOU MD Aug 30, 2020 13:37
[2020-08-30 18:01] VITALS: BP 126/75
[2020-08-30] MEDS: OLANZapine 10 MG TAB PO SCH (20:02)
[2020-08-30] MEDS: PARoxetine 10MG TABLET PO SCH (20:02)
[2020-08-30] MEDS ORDERED: PALIPERIDONE 3 MG ER TAB (INVEGA) PO SCH (21:00)
[2020-08-31 06:26] VITALS: BP 112/59
[2020-08-31] MEDS: BUPRENORPHINE/NALOXONE 8-2MG SUBLINGUAL TABLET(SUBOXONE) SL SCH (09:51)
[2020-08-31] MEDS: lamoTRIgine 100MG TAB PO SCH (09:51)
--- NOTE | 2020-08-31 10:25 | MHDSPDOC ---
[facility] Discharge Summary Discharge Summary DATE OF ADMISSION: Aug 27, 2020 at 16:59 DATE OF DISCHARGE: Aug 31, 2020 at 11:20 DISCHARGE DIAGNOSES: Unspecified psychosis Methamphetamine/hallucinogen use disorder severe CONSULTANTS INVOLVED:[ None (basic hospitalist screening)] REASON FOR ADMISSION & TREATMENT AND PROGRESS ON THE UNIT : The patient was admitted to the inpatient mental health unit with some psychotic symptoms after using methamphetamine and hallucinogens, he was restarted on Invega 3 mg in which he did well, he had recently been vague injection but had reported that the in [place] with oral supplements that he did quite well. The patient was observed over the weekend and for another day prior which made sue dwyer his psychosis resolved as his done prior and he made progress. He was still resistant to the idea of residential treatment as he is currently seen [facility], being generally uninterested in other treatment despite his long history of methamphetamine and was problems causing his psychosis. He was given the Invega injection prior to leaving to help improve compliance. His QTC was within normal limits, encouraged patient to follow up with addiction and physical health as long-term use of methamphetamines and hallucinogens can lead to severe health consequences. He is additionally resumed on his home Paxil and other psychiatric medications without incident. He did well and made progress without any major behavioral problems DISCHARGE ASSESSMENT:[improved] Legal status considerations: The patient at the time of discharge did not meet criteria for involuntary admission/extension due to having a [normal] mental status exam, [fair] insight into the situation, They are engaged in the discharge process, as well as being friendly and amenable in behavioral control and havent been engaging in any observed concerning behavior or ideation recently. They decline voluntary extension/admission at this time and must be discharged in good kim, as Im unable to make a case for holding the patient against their will. They may have historical risk factors of admissions and other interactions with psychiatry however, those are not modifiable from a clinical perspective. The patient will need to be discharged in good kim. MENTAL STATUS EXAMINATION ON DISCHARGE: [General: Well dressed with good hygiene Speech: Spontaneous and fluid Thought processes: Linear and logical Thought content: Future orientated Abstract reasoning, and computation: Intact Description of associations: Intact Description of abnormal or psychotic thoughts:Denies any suicidal or homicidal ideation. Denies any auditory or visual hallucinations. Does not appear to be responding to internal stimuli. Does not appear to be endorsing any bizarre or paranoid ideation. Judgment: fair Insight: fair Orientation: Alert and orientated 3 Recent and remote memory: Intact Attention span and concentration: Intact Fund of knowledge: Adequate Mood: "okay" Affect: Euthymic with a full range] PLAN/FOLLOWUP ARRANGEMENTS: Follow up appointments made (PCP and MH in 5 days of D/C date) and safety plan completed. Safety Planning aspects completed prior to discharge [Medication supplies limited to 7 days with 4 refills to prevent accumulation to OD] [RN reviewed crisis hotline information and other aspects to empower patient to access care in interim before next appointment.] The amount of time spent in the coordination of care for this patient was approximately 30 minutes. Vital Signs/I&Os Vital Signs Date Time Temp Pulse Resp B/P (MAP) Pulse Ox O2 Delivery O2 Flow Rate FiO2 08/31/20 06:26 97.5 58 18 112/59 (76) 95 Room Air Medications Scheduled Bacitracin/Polymyxin B Sulfate (Bacitracin-Polymyxin Eye Oint) 3.5 Gm Oint...g., 1 APLCT OP BID for 10 Days, #3.5 Buprenorphine HCl/Naloxone HCl (Suboxone 8 mg-2 mg Sl Film) 1 Each Film, 1 STRIP SL DAILY, (Reported) UNABE TO VERIFY DOSE WITH [facility], CLOSED 08/27 Lamotrigine (Lamotrigine) 100 Mg Tablet, 100 MG PO DAILY, (Reported) Olanzapine (Olanzapine) 15 Mg Tablet, 7.5 MG PO QHS, (Reported) Paliperidone (Paliperidone ER) 3 Mg Tab.er.24, 3 MG PO QHS for mood for 7 Days, #7 Paliperidone Palmitate (Invega Sustenna) 156 Mg/1 Ml Syringe, 156 MG IM QMONTH, (Reported) RECEIVES AT [facility] Paroxetine (Paroxetine HCl) 10 Mg Tablet, 10 MG PO QHS, (Reported) Terbinafine HCl (Terbinafine HCl) 250 Mg Tablet, 250 MG PO DAILY, (Reported) Scheduled PRN Hydroxyzine HCl (Hydroxyzine HCl) 50 Mg Tablet, 50 MG PO QHS PRN for ANXIETY, (Reported) Allergies Coded Allergies: No Known Allergies (Unverified , 12/09/18) ARIADNE QUIROS DO Aug 31, 2020 10:25
[2020-08-31] MEDS ORDERED: PALI1TAB2 PO (10:36)
--- NOTE | 2020-09-01 05:58 | ECGEPIP ---
[facility] Test Date: 2020-08-31 Pat Name: ELIJAH RAE Department: Room: [place] [address] Gender: Male Team Primary Care Physician: : [id number] Requested By: ARIADNE QUIROS Order Number: [id number] Reading MD: Rusty Juarez Measurements Intervals [place] Rate: 71 P: 66 MT: 151 QRS: 62 QRSD: 106 T: 55 QT: 378 QTc: 411 Interpretive Statements Normal sinus rhythm Consider prior inferior wall myocardial infarction No significant change since prior tracing of 05/30/2020 Electronically Signed on 09-01-2020 5:58:18 EST by Rusty Juarez
== END 2020-08-31 11:20 | disposition home or self-care (01) | DRG 751 ==
LOC: M ED 13:55 → M ED INP 16:59 → M PSY 18:27
PROVIDERS: ADMIT Psychiatry & Neurology Psychiatry; ATTEND Psychiatry & Neurology Addiction Medicine
DX: F29 Unspecified psychosis not due to a substance or known physiological condition (principal); F16.90 Hallucinogen use, unspecified, uncomplicated; F15.90 Other stimulant use, unspecified, uncomplicated; Z79.899 Other long term (current) drug therapy; F17.210 Nicotine dependence, cigarettes, uncomplicated

== ENCOUNTER → 2021-01-18 | Outpatient (REF) ==
[~2021-01-18] MED LIST changes: +BACIOIN23 OP; +NAPR-849 PO; -NAPR250T4 PO
--- NOTE | 2021-01-19 03:18 | REPPI ---
INDICATION: DISABILITLY DETERMINATION COMPARISON: MRI dated 03/25/2015 TECHNIQUE: AP, lateral, coned-down views of the lumbar spine. FINDINGS: Three views of the lumbosacral spine demonstrate satisfactory alignment and lordosis without acute fracture / compression injury or subluxation. Endplate sclerosis with disc space narrowing noted at L5-S1. Remainder of the examination appears essentially age-appropriate. IMPRESSION: 1. No acute fracture / compression injury or subluxation. 2. Focal degenerative changes at L5-S1. <Electronically signed by Justin Rodriguez > 01/19/21 [id number]
== END ==
LOC: M PLAIMG 12:06
PROVIDERS: ATTEND Internal Medicine
DX: Z02.9 Encounter for administrative examinations, unspecified (principal)

== ENCOUNTER → 2021-08-12 | Outpatient (CLI) | payer OTHER ==
[~2021-08-12] MED LIST changes: -OLAN15TA PO; +OLAN15TA13 PO; +OLAN1TAB16 PO; -OLAN5TAB PO; -TERB250T12 PO; +TERB250T91 PO
[2021-08-12 14:40] LABS: HEMATOCRIT 43.2 % (42.0-52.0); HEMOGLOBIN 14.2 g/dl (13.5-17.5); MEAN CORPUSCULAR HEMOGLOBIN 29.5 pg (27.0-33.0); MEAN CORPUSCULAR HGB CONC 32.9 g/dl (32.0-36.5); MEAN CORPUSCULAR VOLUME 89.6 fl (80.0-96.0); PLATELET COUNT, AUTOMATED 254 10^3/uL (150-450); RED BLOOD COUNT 4.82 10^6/uL (4.30-6.10); WHITE BLOOD COUNT 7.8 10^3/uL (4.0-10.0)
[2021-08-12 15:22] LABS: ALBUMIN 3.3 GM/DL (3.2-5.2); ALT/SGPT 18 U/L (12-78); BILIRUBIN,TOTAL 0.2 MG/DL (0.2-1.0); BLOOD UREA NITROGEN 14 MG/DL (7-18); CALCIUM LEVEL 8.9 MG/DL (8.5-10.1); CARBON DIOXIDE LEVEL 28 MEQ/L (21-32); CHLORIDE LEVEL 108 MEQ/L (98-107); CHOLESTEROL LEVEL 170 MG/DL (<200); CHOLESTEROL RISK RATIO 4.594 (<5); CREATININE FOR GFR 1.09 MG/DL (0.70-1.30); GLOMERULAR FILTRATION RATE > 60.0 (>60); GLUCOSE, FASTING 100 MG/DL (70-100); HDL CHOLESTEROL 37 MG/DL (>40); LDL CHOLESTEROL 103 MG/DL (<100); NON-HDL-C 133 MG/DL; POTASSIUM SERUM 4.6 MEQ/L (3.5-5.1); SODIUM LEVEL 140 MEQ/L (136-145); THYROID STIMULATING HORMONE 0.678 uIU/ML (0.358-3.740); TOTAL PROTEIN 6.9 GM/DL (6.4-8.2); TRIGLYCERIDES LEVEL 152 MG/DL (<150)
--- NOTE | 2021-08-12 21:22 | ECGEPIP ---
[facility] Test Date: 2021-08-12 Pat Name: ELIJAH RAE Department: Room: - Gender: Male Cloth Calender: cristal : 1975 Requested By: Gia Chahal NPP-BC Order Number: [id number] Reading MD: Rusty Juarez Measurements Intervals [place] Rate: 80 P: 42 NE: 160 QRS: 34 QRSD: 88 T: 47 QT: 362 QTc: 417 Interpretive Statements Normal sinus rhythm Possible inferior wall MT, age indeterminate No significant change when compared to prior tracing of 08/31/2020 Electronically Signed on 08-12-2021 21:21:53 EST by Rusty Juarez
== END ==
LOC: M EKG 13:45
PROVIDERS: ATTEND Nurse Practitioner Family
DX: F06.0 Psychotic disorder with hallucinations due to known physiological condition (principal); Z51.81 Encounter for therapeutic drug level monitoring

== ENCOUNTER → 2021-11-14 | Outpatient (CLI) | payer OTHER ==
[2021-11-14 16:04] LABS: ALBUMIN 3.9 GM/DL (3.2-5.2); ALT/SGPT 19 U/L (12-78); BILIRUBIN,TOTAL 0.3 MG/DL (0.2-1.0); BLOOD UREA NITROGEN 14 MG/DL (7-18); CALCIUM LEVEL 9.3 MG/DL (8.5-10.1); CARBON DIOXIDE LEVEL 30 MEQ/L (21-32); CHLORIDE LEVEL 105 MEQ/L (98-107); CHOLESTEROL LEVEL 177 MG/DL (<200); CHOLESTEROL RISK RATIO 4.783 (<5); CREATININE FOR GFR 1.18 MG/DL (0.70-1.30); FREE T4 1.51 NG/DL (0.76-1.46); GLOMERULAR FILTRATION RATE > 60.0 (>60); GLUCOSE, FASTING 108 MG/DL (70-100); HDL CHOLESTEROL 37 MG/DL (>40); LDL CHOLESTEROL 118 MG/DL (<100); NON-HDL-C 140 MG/DL; POTASSIUM SERUM 4.3 MEQ/L (3.5-5.1); SODIUM LEVEL 138 MEQ/L (136-145); TOTAL PROTEIN 7.3 GM/DL (6.4-8.2); TRIGLYCERIDES LEVEL 108 MG/DL (<150)
== END ==
LOC: M LAB 14:23
PROVIDERS: ATTEND Family Medicine Addiction Medicine
DX: E78.5 Hyperlipidemia, unspecified (principal)

== ENCOUNTER → 2021-12-21 | Outpatient (CLI) | payer OTHER | LOC: M WHC 14:05 | PROVIDERS: ATTEND Family Medicine Addiction Medicine | DX: R22.42 Localized swelling, mass and lump, left lower limb (principal) ==

== ENCOUNTER → 2022-03-29 | Outpatient (CLI) | payer OTHER | LOC: M CARPUL 14:46 | PROVIDERS: ATTEND Internal Medicine Cardiovascular Disease | DX: R94.31 Abnormal electrocardiogram [ECG] [EKG] (principal) ==

== ENCOUNTER → 2023-01-18 | Outpatient (CLI) | payer OTHER ==
[~2023-01-18] MED LIST changes: -PAXI10TA12 PO; +PAXI10TA13 PO
== END ==
LOC: M SLEEP HO 11:41
PROVIDERS: ATTEND Physician Assistant
DX: G47.33 Obstructive sleep apnea (adult) (pediatric) (principal)

== ENCOUNTER → 2023-02-14 | Outpatient (CLI) | payer MEDICAID, OTHER ==
[2023-02-14 12:32] LABS: HEMOGLOBIN A1c 5.4 % (4.0-6.0)
[2023-02-14 12:37] LABS: ALBUMIN 3.3 G/DL (3.2-5.2); ALKALINE PHOSPHATASE 86 U/L (46-116); ALT/SGPT 10 U/L (7.0-40); AST/SGOT 8 U/L (<34); BILIRUBIN,TOTAL 0.4 MG/DL (0.3-1.2); BLOOD UREA NITROGEN 10 MG/DL (9-23); CALCIUM LEVEL 8.5 MG/DL (8.5-10.1); CARBON DIOXIDE LEVEL 27 MMOL/L (20-31); CHLORIDE LEVEL 106 MMOL/L (98-107); CHOLESTEROL LEVEL 153 MG/DL (<200); CHOLESTEROL RISK RATIO 5.04 (<5); CREATININE FOR GFR 1.18 MG/DL (0.70-1.30); GLOMERULAR FILTRATION RATE > 60.0 (>60); GLUCOSE, FASTING 93 MG/DL (60-100); HDL CHOLESTEROL 30.3 MG/DL (>40); LDL CHOLESTEROL 94.9 MG/DL (<100); NON-HDL-C 122.7 MG/DL; POTASSIUM SERUM 4.1 MMOL/L (3.5-5.1); SODIUM LEVEL 137 MMOL/L (136-145); TOTAL PROTEIN 5.9 G/DL (5.7-8.2); TRIGLYCERIDES LEVEL 139 MG/DL (<150)
[2023-02-14 12:38] LABS: THYROID STIMULATING HORMONE 3.907 uIU/ML (0.55-4.78)
[2023-02-14 13:04] LABS: HIV 1&2 SCREEN NEGATIVE (NEGATIVE)
[2023-02-14 17:28] LABS: HEPATITIS C VIRUS ABY INDEX > 11.0 INDEX (<0.8)
== END ==
LOC: M LAB 11:21
PROVIDERS: ATTEND Family Medicine Addiction Medicine
DX: E78.5 Hyperlipidemia, unspecified (principal)

== ENCOUNTER → 2023-10-12 | Outpatient (CLI) | payer MEDICAID, OTHER ==
[2023-10-12 12:49] LABS: HEMATOCRIT 40.2 % (42.0-52.0); HEMOGLOBIN 13.6 g/dl (13.5-17.5); MEAN CORPUSCULAR HGB CONC 33.8 g/dl (32.0-36.5); MEAN CORPUSCULAR VOLUME 88.5 fl (80.0-96.0); PLATELET COUNT, AUTOMATED 201 10^3/uL (150-450); RED BLOOD COUNT 4.54 10^6/uL (4.30-6.10); WHITE BLOOD COUNT 5.6 10^3/uL (4.0-10.0)
[2023-10-12 13:15] LABS: ALBUMIN 3.6 G/DL (3.2-5.2); ALKALINE PHOSPHATASE 79 U/L (46-116); ALT/SGPT 17 U/L (7.0-40); AST/SGOT 17 U/L (<34); BILIRUBIN,TOTAL 0.3 MG/DL (0.3-1.2); BLOOD UREA NITROGEN 16 MG/DL (9-23); CALCIUM LEVEL 8.7 MG/DL (8.5-10.1); CARBON DIOXIDE LEVEL 28 MMOL/L (20-31); CHLORIDE LEVEL 107 MMOL/L (98-107); CREATININE FOR GFR 1.15 MG/DL (0.70-1.30); GLOMERULAR FILTRATION RATE > 60.0 (>60); GLUCOSE, FASTING 94 MG/DL (60-100); POTASSIUM SERUM 4.4 MMOL/L (3.5-5.1); SODIUM LEVEL 139 MMOL/L (136-145); TOTAL PROTEIN 6.3 G/DL (5.7-8.2)
[2023-10-12 13:46] LABS: HIV 1&2 SCREEN NEGATIVE (NEGATIVE)
[2023-10-12 14:13] LABS: HEPATITIS C VIRUS ABY INDEX > 11.00 INDEX (<0.8)
[2023-10-12 15:02] LABS: CHLAMYDIA DNA AMPLIFICATION NEGATIVE (NEGATIVE); GC DNA AMPLIFICATION NEGATIVE (NEGATIVE)
== END ==
LOC: M LAB 11:25
PROVIDERS: ATTEND Family Medicine
DX: F11.20 Opioid dependence, uncomplicated (principal)

== ENCOUNTER 2023-11-21 01:36 | Inpatient (IN) | payer OTHER ==
[~2023-11-21] VITALS: Ht 185.4 cm; Wt 107.4 kg
[2023-11-21] MEDS: LORazepam 2 MG/ML 1ML VIAL IM ONE (02:05)
[2023-11-21] MEDS: diphenhydrAMINE 50MG/ML VIAL IM ONE (02:05)
[2023-11-21] MEDS: HALOPERIDOL 5MG/ML 1ML VIAL IM ONE (02:05)
[2023-11-21 02:47] LABS: HEMATOCRIT 41.3 % (42.0-52.0); HEMOGLOBIN 14.2 g/dl (13.5-17.5); MEAN CORPUSCULAR HEMOGLOBIN 30.3 pg (27.0-33.0); MEAN CORPUSCULAR HGB CONC 34.4 g/dl (32.0-36.5); MEAN CORPUSCULAR VOLUME 88.1 fl (80.0-96.0); PLATELET COUNT, AUTOMATED 293 10^3/uL (150-450); RED BLOOD COUNT 4.69 10^6/uL (4.30-6.10); WHITE BLOOD COUNT 11.5 10^3/uL (4.0-10.0)
[2023-11-21 03:09] LABS: COCAINE METABOLITE URINE NEGATIVE (NEGATIVE)
[2023-11-21 03:10] LABS: AMPHETAMINES LEVEL URINE NEGATIVE (NEGATIVE); BENZODIAZEPINES URINE NEGATIVE (NEGATIVE); OPIATES URINE NEGATIVE (NEGATIVE); PHENCYCLIDINE URINE NEGATIVE (NEGATIVE)
[2023-11-21 03:24] LABS: ETHYL ALCOHOL (ETHANOL) < 0.003 % (0.000-0.010)
[2023-11-21 03:26] LABS: ALKALINE PHOSPHATASE 143 U/L (46-116); ALT/SGPT 46 U/L (7.0-40); AST/SGOT 39 U/L (<34); BILIRUBIN,DIRECT 0.4 MG/DL (<0.4); BILIRUBIN,TOTAL 0.9 MG/DL (0.3-1.2); BLOOD UREA NITROGEN 19 MG/DL (9-23); CALCIUM LEVEL 9.4 MG/DL (8.5-10.1); CARBON DIOXIDE LEVEL 28 MMOL/L (20-31); CHLORIDE LEVEL 103 MMOL/L (98-107); CREATININE FOR GFR 1.26 MG/DL (0.70-1.30); GLOMERULAR FILTRATION RATE > 60.0 (>60); GLUCOSE, FASTING 115 MG/DL (60-100); POTASSIUM SERUM 3.6 MMOL/L (3.5-5.1); SALICYLATE LEVEL < 3.0 MG/DL (<30); SODIUM LEVEL 139 MMOL/L (136-145); TOTAL PROTEIN 7.3 G/DL (5.7-8.2)
[2023-11-21 03:28] LABS: THYROID STIMULATING HORMONE 1.507 uIU/ML (0.55-4.78)
[2023-11-21 03:41] LABS: BARBITURATES URINE NEGATIVE (NEGATIVE)
[2023-11-21 03:57] LABS: CANNABINOIDS URINE POSITIVE (NEGATIVE); METHADONE URINE POSITIVE (NEGATIVE)
[2023-11-21] MEDS ORDERED: MAALOX 30 ML SUSP *UDC PO PRN (07:25)
[2023-11-21] MEDS ORDERED: diphenhydrAMINE 25MG CAP PO PRN (07:25)
[2023-11-21] MEDS ORDERED: MOM 30ML SUSPENSION UDC PO PRN (07:25)
[2023-11-21] MEDS ORDERED: IBUPROFEN 400MG TAB PO PRN (07:25)
[2023-11-21] MEDS ORDERED: traZODone 50 MG TAB PO PRN (07:25)
[2023-11-21] MEDS: OLANZapine ORAL DISINTEGRATING TAB 5MG PO STA (10:16)
[2023-11-21] MEDS ORDERED: MED REC CURRENTLY UNOBTAINABLE XX SCH (12:40)
[2023-11-21 15:51] VITALS: BP 141/91; TEMP 98.2; O2SAT 99
[2023-11-21] MEDS ORDERED: diphenhydrAMINE 50MG CAP PO PRN (18:20)
[2023-11-21] MEDS ORDERED: LORazepam 2 MG TAB PO PRN (18:20)
[2023-11-21] MEDS: HALOPERIDOL 5MG/ML 1ML VIAL IM STA (21:13)
[2023-11-21] MEDS: LORazepam 2 MG/ML 1ML VIAL IM STA (21:14)
[2023-11-21] MEDS: diphenhydrAMINE 50MG/ML VIAL IM STA (21:14)
[2023-11-21 22:00] VITALS: BP 114/66; TEMP 97.8
[2023-11-21 22:30] VITALS: BP 101/58; TEMP 97.9; O2SAT 95
[2023-11-21 22:45] VITALS: BP 118/87; TEMP 98.4; O2SAT 98
[2023-11-22] MEDS: OLANZapine 5 MG TAB PO SCH (09:00)
[2023-11-22 17:35] VITALS: BP 123/83; TEMP 97.2; O2SAT 96
[2023-11-23] MEDS ORDERED: IBUP80TA PO (11:42)
[2023-11-23] MEDS ORDERED: ZIPR20CA21 PO (11:42)
[2023-11-23] MEDS ORDERED: TRAZ1TAB14 PO (11:42)
[2023-11-23] MEDS ORDERED: FAMO10TA50 PO (11:42)
[2023-11-23] MEDS ORDERED: DOCU100C16 PO (11:42)
[2023-11-23] MEDS ORDERED: HOME MED LIST COMPLETE! XX SCH (11:45)
[2023-11-23 16:26] VITALS: BP 108/63; TEMP 97.2; O2SAT 95
[2023-11-24 06:15] VITALS: BP 139/68; TEMP 98.4; O2SAT 97
[2023-11-24 15:51] VITALS: BP 116/64; TEMP 97.7; O2SAT 94
[2023-11-24] MEDS: ZIPRASIDONE 20MG CAPSULE (GEODON) PO SCH (17:39)
[2023-11-25 06:31] VITALS: BP 114/70; TEMP 97.7
[2023-11-25 16:01] VITALS: BP 132/90; TEMP 97.9; O2SAT 98
[2023-11-26 06:37] VITALS: BP 121/76; TEMP 97.9; O2SAT 97
[2023-11-26] MEDS: FAMOTIDINE 20 MG TAB PO SCH (08:20)
[2023-11-26] MEDS: ACETAMINOPHEN TAB 650MG DOSE (2X325MG) PO PRN (08:21)
[2023-11-26] MEDS: DOCUSATE SODIUM 100MG CAPSULE PO SCH (08:21)
[2023-11-26 16:40] VITALS: BP 107/59; TEMP 97.8; O2SAT 100
[2023-11-26] MEDS: traZODone 100 MG TAB PO PRN (20:01)
[2023-11-27 06:19] VITALS: BP 118/65; TEMP 97.4; O2SAT 100
[2023-11-27] MEDS ORDERED: TRAZ-257 PO (13:05)
[2023-11-27] MEDS ORDERED: GEOD20CA PO (13:05)
[2023-11-27] MEDS ORDERED: LAMI25TA PO (13:06)
[2023-11-27] MEDS: lamoTRIgine 25MG TAB PO SCH (13:32)
== END 2023-11-27 13:50 | disposition home or self-care (01) | DRG 751 ==
LOC: M ED 01:36 → M ED INP 07:21 → M PSY 15:14
PROVIDERS: ADMIT Psychiatry & Neurology Psychiatry; ATTEND Student in an Organized Health Care Education/Training Program
DX: F29 Unspecified psychosis not due to a substance or known physiological condition (principal); Z78.1 Physical restraint status; R74.01 Elevation of levels of liver transaminase levels; F41.9 Anxiety disorder, unspecified; F32.A Depression, unspecified; Z79.899 Other long term (current) drug therapy; Z79.891 Long term (current) use of opiate analgesic; Z11.52 Encounter for screening for COVID-19

== ENCOUNTER → 2024-03-11 | Outpatient (CLI) | payer OTHER ==
[~2024-03-11] MED LIST changes: +DOCU100C16 PO; +FAMO10TA50 PO; +GEOD20CA PO; +LAMI25TA PO; +TRAZ1TAB14 PO; +ZIPR20CA21 PO
== END ==
LOC: M LAB 10:05
PROVIDERS: ATTEND Family Medicine
DX: F11.20 Opioid dependence, uncomplicated (principal)
CPT/HCPCS: 36415; G0480

== ENCOUNTER → 2024-06-17 | Outpatient (CLI) | payer OTHER ==
[~2024-06-17] MED LIST changes: +GABA-1490 PO; -GABA600T4 PO; -OLAN15TA13 PO; +OLAN15TA69 PO
[2024-06-17 15:06] LABS: HEMATOCRIT 40.4 % (42.0-52.0); MEAN CORPUSCULAR HEMOGLOBIN 31.7 pg (27.0-33.0); MEAN CORPUSCULAR HGB CONC 34.7 g/dl (32.0-36.5); MEAN CORPUSCULAR VOLUME 91.6 fl (80.0-96.0); PLATELET COUNT, AUTOMATED 202 10^3/uL (150-450); RED BLOOD COUNT 4.41 10^6/uL (4.30-6.10); WHITE BLOOD COUNT 6.5 10^3/uL (4.0-10.0)
[2024-06-17 15:33] LABS: ALBUMIN 3.6 G/DL (3.2-5.2); ALKALINE PHOSPHATASE 82 U/L (46-116); ALT/SGPT 20 U/L (7.0-40); AST/SGOT 14 U/L (<34); BILIRUBIN,TOTAL 0.2 MG/DL (0.3-1.2); BLOOD UREA NITROGEN 20 MG/DL (9-23); CALCIUM LEVEL 9.2 MG/DL (8.5-10.1); CARBON DIOXIDE LEVEL 27 MMOL/L (20-31); CHLORIDE LEVEL 108 MMOL/L (98-107); CREATININE FOR GFR 1.12 MG/DL (0.70-1.30); GLOMERULAR FILTRATION RATE > 60.0 (>60); GLUCOSE, FASTING 145 MG/DL (60-100); POTASSIUM SERUM 4.4 MMOL/L (3.5-5.1); SODIUM LEVEL 138 MMOL/L (136-145); TOTAL PROTEIN 6.6 G/DL (5.7-8.2)
[2024-06-17 15:36] LABS: THYROID STIMULATING HORMONE 2.249 uIU/ML (0.55-4.78)
== END ==
LOC: M LAB 14:16
PROVIDERS: ATTEND Nurse Practitioner Family
DX: F41.9 Anxiety disorder, unspecified (principal)

== ENCOUNTER → 2025-07-09 | Outpatient (REF) | payer OTHER ==
[~2025-07-09] MED LIST changes: -IBUP-1022 PO; +IBUP600T42 PO
== END ==
LOC: M LAB REF 17:12
PROVIDERS: ATTEND Physician Assistant
DX: J02.9 Acute pharyngitis, unspecified (principal)